=== PATIENT | male | born 1930 | race Caucasian/White ===

== ENCOUNTER 2018-06-10 18:04 | Inpatient (IN) | payer MEDICARE, OTHER ==
[~2018-06-10] VITALS: Ht 180.3 cm; Wt 93.5 kg
--- NOTE | ~2018-06-10 | CN ---
PATIENT NAME:TRIP HERNANDEZ MEDICAL RECORD: [id number] : 32 LOCATION:D. D.2116 ADMIT DATE: 06/10/18 ACCOUNT: [id number] CONSULTING PHYSICIAN: BERENICE ORTIZ MD REFERRING PHYSICIAN: CAIO MANNING MD DATE OF CONSULTATION: 06/11/2018 HISTORY OF PRESENT ILLNESS: An 87-year-old gentleman with a history of coronary artery disease, status post aortic valve replacement with a tissue prosthesis well as single-vessel coronary bypass grafting, admitted with chest pain, dyspnea, has noticed decreased effort tolerance over the past week or so. He reports chest tightness and pressure after rest symptomology. He is admitted for further evaluation. PAST MEDICAL HISTORY: Includes, 1. History of coronary artery disease as described above. 2. Dyslipidemia. 3. Valvular disease. 4. Gastroesophageal reflux disease. ALLERGIES: QUININE. MEDICATIONS: Atorvastatin 40 every day, potassium supplementation, Protonix 40 every day, aspirin 81 every day. SOCIAL HISTORY: Lives in [facility], nonsmoker, and nondrinker. He is able to care of his ADLs. Good family support. REVIEW OF SYSTEMS: The patient reports easy bruising but reports no swollen glands. The patient reports no fever, no night sweats, no significant weight gain, no significant weight loss. No significant exercise tolerance. The patient reports no dry eyes, no irritation, no vision change. Patient reports no difficulty hearing and no ear pain. Patient reports no frequent nose bleeds or nose and sinus problems. Patient reports on arm pain on exertion. No shortness of breath while lying down. No history of heart murmur. Patient reports no cough, no wheezing or coughing up blood. Patient reports no abdominal pain, no vomiting. Normal appetite. No diarrhea and not vomiting blood. No nausea and no constipation. Patient reports no incontinence. No difficulty urinating. No hematuria. No increased frequency. Patient reports no muscle aches. No weakness, no arthralgias, no back pain. No swelling of the extremities. Patient reports no abnormal mole, no jaundice, no rashes. Reports no loss of consciousness. No weakness and no numbness. No seizures, dizziness, or headaches. The patient reports no depression, no sleep disturbance, feeling safe in a relationship and no alcohol abuse. Patient reports on fatigue. Reports no runny nose or sinus pressure. No itching, no hives, and no frequent sneezing. PHYSICAL EXAMINATION: GENERAL: Pleasant gentleman in no acute distress. VITAL SIGNS: 104/45, pulse 81 and regular. HEENT: Normocephalic, atraumatic. NECK: No bruits noted. HEART: Regular, II/ systolic ejection murmur. LUNGS: Good air excursion. ABDOMEN: Soft, nontender. CONSULT REPORT [id number] DAVID,TRIP L EXTREMITIES: Pulses 2+, no edema. LABORATORY DATA: Enzymes are borderline, difficult to interpret in the phase of creatinine of 1.7. IMPRESSION: Accelerated angina, acute coronary syndrome. PLAN: For angiography, intervention based on above. 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
--- NOTE | ~2018-06-10 | HEMODYNAMI ---
PATIENT:TRIP HERNANDEZ MEDICAL RECORD: [id number] : 32 [facility] ADMISSION DATE: 06/10/18 Generatedon:06/11/201812:21 Patient name: TRIP HERNANDEZ Patient #: [id number] SSN: DO B: 1930 Date of study: 06/11/2018 Page: Of Hemodynamic Procedure Report Patient Data Patient Demographics Procedure consent was obtained First Name: TRIP Gender: Male Last Name: DAVID : 1930 Middle Initial: L Age: 87 year(s) Patient #: [id number] Race: Unknown Additional ID: [id number] Contact details [address]: [address] [place] [address] rd State: [place] City: [place] Zip code: [address] Past Medical History Allergies Allergen Reaction Date Comments Reported Other allergy 06/11/2018 quinine Admission Admission Data Admission Date: 06/10/2018 Admission Time: 18:04 Room #: [facility] Procedure Procedure Types Cath Procedure Diagnostic Procedure LHC LHC w/Coronaries w/Grafts PCI Procedure Coronary Stent Coronary Stent Initial Procedure Description Procedure Date Procedure Date: 06/11/2018 Procedure Start Time: 11:22 Procedure End Time: 12:19 Procedure Staff Name Function Eduardo Saravia MD Performing Physician Abhijeet Mcintyre RT Monitor Brannon Lai RT Scrub Harvey Nava RN Nurse Procedure Data Cath Procedure Fluoroscopy Diagnostic fluoroscopy Total fluoroscopy Time: time: 13.4 min 13.4 min Diagnostic fluoroscopy Total fluoroscopy dose: dose: 2409 mGy 2409 mGy Contrast Material Contrast Material Type Amount (ml) Isovue 300 120 Entry Location Entry Primary Successful Side Size Upsize Upsize Entry Closure Succes sful Closure Location (Fr) 1 (Fr) 2 (Fr) Remarks Device Remarks Femoral Right 5 Fr 6 Fr 6 Fr Exoseal artery Long Short Estimated blood loss: 10 ml Diagnostic catheters Device Type Used For End Catheter Placement MULTIPACK JL 4.0 5Fr Procedure catheter MULTIPACK JL 4.0 5Fr Procedure catheter DIAGNOSTIC JL 5 5Fr Procedure catheter ([id number]) MULTIPACK 3DRC 5Fr Procedure catheter DIAGNOSTIC MPA-2 5Fr Procedure catheter ([id number]) DIAGNOSTIC AL 1 5Fr Procedure catheter ([id number]) MULTIPACK Pigtail 5 Fr Procedure catheter Procedure Complications No complications Procedure Medications Medication Administration Route Dosage Oxygen etCO2 Nasal cannula 2 l/min Heparin Flush Bag added to field 2 bags (1000units/500ml NS) 0.9% NaCl I.V. 100 ml/hr Fentanyl I.V. 50 mcg Versed I.V. 1 mg Heparin Bolus I.V. 7000 units Integrilin (Bolus I.V. 6.8 ml 2mg/ml) Integrilin (Bolus wasted 3.2 ml 2mg/ml) Lasix I.V. 20 mg Plavix P.O. 600 mg Hemodynamics Rest Heart Rate: 90 (bpm) Pressure Samples Time Site Value (mmHg) Purpose Heart Use Rate(bpm) 11:29 AO 105/37(65) Snapshot 86 11:51 LV 134/-13,11 EDP 94 11:51 LV 128/-16,10 Snapshot 94 11:52 LV 149/-6,19 EDP 85 11:52 LV 138/29,31 Snapshot 93 Gradients Valve Time Site Site Mean SEP/DFP Peak To Heart Use 1 2 (mmHg) (sec/min) Peak Rate (mmHg) (bpm) Aortic 11:52 LV AO 100 Snapshots Pre Cath Intra NCS Post Cath Vital Signs Time Heart Resp SPO2 etCO2 NIBP (mmHg) Rhythm Pain Sedation Rate (ipm) (%) (mmHg) Status Level (bpm) 11:08:14 115 17 97 0 129/65(98) NSR 0 (11) 10(A) , No pain 11:12:15 89 16 92 21 117/58(97) NSR 0 (11) 10(A) , No pain 11:16:13 85 16 86 18 126/65(92) NSR 0 (11) 10(A) , No pain 11:20:23 94 16 92 23.3 107/50(86) NSR 0 (11) 9(A) , No pain 11:24:24 80 16 91 18.8 116/60(80) NSR 0 (11) 9(A) , No pain 11:28:24 95 16 93 14.2 109/62(85) NSR 0 (11) 9(A) , No pain 11:32:32 91 17 93 19.5 106/49(86) NSR 0 (11) 9(A) , No pain 11:36:34 87 17 90 21 114/55(88) NSR 0 (11) 9(A) , No pain 11:40:39 90 16 92 20.3 105/53(80) NSR 0 (11) 9(A) , No pain 11:44:39 93 17 91 25.5 99/56(79) NSR 0 (11) 9(A) , No pain 11:48:37 91 16 95 17.2 105/56(83) NSR 0 (11) 9(A) , No pain 11:53:05 94 16 93 11.2 119/59(82) NSR 0 (11) 9(A) , No pain 11:57:31 103 16 95 0 107/59(82) NSR 0 (11) 9(A) , No pain 12:01:58 96 18 92 0 135/63(98) NSR 0 (11) 9(A) , No pain 12:05:55 101 17 95 0 131/65(90) NSR 0 (11) 9(A) , No pain 12:10:13 100 16 93 0 141/69(106) NSR 0 (11) 10(A) , No pain 12:14:09 101 22 96 0 139/68(107) NSR 0 (11) 10(A) , No pain Medications Time Medication Route Dose Verified Delivered Reason Notes Effectiveness by by 11:09:23 Oxygen etCO2 2 Eduardo Harvey Per physician Nasal l/min Rani Nava RN cannula 11:09:32 Heparin Flush added 2 Eduardo Harvey used for Bag to bags Rani Nava RN procedure (1000units/500ml field CARIAS NS) 11:09:41 0.9% NaCl I.V. 100 Eduardo Harvey Per physician ml/hr Rani Nava RN, MD 11:17:20 Fentanyl I.V. 50 Eduardo Harvey for sedation mcg Rani Nava RN, MD 11:17:27 Versed I.V. 1 mg Eduardo Harvey for sedation Rani Nava RN, MD 11:57:53 Heparin Bolus I.V. 7000 Eduardo Harvey for units Rani Nava RN anticoagulation MD 12:00:49 Integrilin I.V. 6.8 Eduardo Harvey for (Bolus 2mg/ml) ml Rani Nava RN antiplatelet MD therapy 12:00:55 Integrilin wasted 3.2 Eduardo Harvey for (Bolus 2mg/ml) ml Rani Nava RN antiplatelet MD therapy 12:10:20 Lasix I.V. 20 mg Eduardo Gabriel Per physician Rani Nava RN, MD 12:10:32 Plavix P.O. 600 Eduardoyessy Gabriel for mg Rani Nava RN antiplatelet MD therapy Procedure Log Time Note 10:02:22 Time tracking: Regular hours (M-F 7:00 - 5:00) 10:02:26 Plan of Care:Hemodynamics will remain stable., Cardiac rhythm will remain stable., Comfort level will be maintained., Respiratory function will remain adequate., Patient/ family verbilizes understanding of procedure., Procedure tolerated without complication., Recovers from procedure without complications.. 10:45:10 Abhijeet Mcintyre RT(R) sent for patient. Start room use. 10:53:45 H&P Date Dictated: 06/10/2018 Within 30 days and on chart.. 10:54:29 Patient allergic to Other allergyquinine 10:59:23 Patient received from Med II to CCL 2 Alert and oriented. Tansferred to table in Supine position. 10:59:25 Warm blankets applied, and danii hugger turned on for patient comfort. 10:59:25 Correct patient and procedure confirmed by team. 10:59:27 Signed procedure consent form obtained from patient. 10:59:28 ECG and BP/O2 sat monitors applied to patient. 10:59:28 Pre-procedure instructions explained to patient. 10:59:29 Pre-op teaching completed and patient verbalized understanding. 10:59:31 Family in patients room. 10:59:34 Patient NPO since Midnight. 10:59:38 Is the patient allergic to Iodine/contrast media? No. 11:07:22 Vital chart was started 11:09:23 Oxygen 2 l/min etCO2 Nasal cannula was administered by Harvey Nava RN; Per physician; 11:09:32 Heparin Flush Bag (1000units/500ml NS) 2 bags added to field was administered by Harvey Nava RN; used for procedure; 11:09:41 0.9% NaCl 100 ml/hr I.V. was administered by Harvey Nava RN; Per physician; 11:11:20 Baseline sample Acquired. 11:11:23 Rhythm: sinus rhythm 11:11:24 Full Disclosure recording started 11:11:27 Is patient on blood thinner?No 11:11:28 Patient diabetic? No. 11:11:31 Previous problem with sedation/anesthesia? No ? 11:12:13 Snore? Yes 11:12:14 Sleep apnea? No 11:12:15 Deviated septum? No 11:12:15 Opens mouth fully? Yes 11:12:16 Sticks out tongue? Yes 11:12:19 Airway obstruction? Yes COPD 11:12:23 Dentures? No ? 11:12:25 Pre procedure: right dorsailis pedis pulse 1+ Palpable, but thready & weak; easily obliterated 11:12:28 Patient pain scale 0/10 ?. 11:12:34 IV patent on arrival in right wrist with 0.9% NaCl at [facility]. 11:12:36 Lab results completed and on chart. 11:12:43 Right groin area was prepped with chlora-prep and draped in sterile fashion 11:12:44 Alarms reviewed by R. N. 11:12:44 Sharps counted by scrub and verified by R.N. 11:12:48 Use device set Femoral Dx 11:12:51 Tegaderm 4 x 4 (1626W) opened to sterile field. 11:12:51 PERCUTANEOUS ENTRY 19GA needle opened to sterile field. 11:12:53 ACIST Hand Control (18471) opened to sterile field. 11:12:53 ACIST Manifold (50886) opened to sterile field. 11:12:55 ACIST Syringe (55516) opened to sterile field. 11:12:55 Bag Decanter () opened to sterile field. 11:12:56 Medline Cath Pack ([id number]) opened to sterile field. 11:12:56 DIAGNOSTIC WIRE .035 260cm J wire (546084) opened to sterile field. 11:12:57 DIAGNOSTIC Multipack 5Fr catheter set (RU6450) opened to sterile field. 11:12:58 SHEATH Prelude 5Fr 0.035 (JLU-4Q-11-035) opened to sterile field. 11:14:05 MICROPUNCTURE 4FR Xplornet ([id number]) opened to sterile field. 11:16:53 --------ALL STOP TIME OUT------ 11:16:54 Final Timeout: patient, procedure, and site verified with staff and physician. All members of the team are in agreement. 11:16:58 Right groin site verified by team. 11:17:01 Physical assessment completed. ASA score P 2 - A patient with mild systemic disease as per Eduardo Saravia MD. 11:17:04 Sedation plan: IV Moderate Sedation Medication:Versed, Fentanyl 11:17:20 Fentanyl 50 mcg I.V. was administered by Harvey Nava RN; for sedation; 11:17:27 Versed 1 mg I.V. was administered by Harvey Nava RN; for sedation; 11:22:31 Zero performed for pressure channel P1 11:22:34 Zero performed for pressure channel P1 11:22:44 Procedure started. 11::53 Local anesthetic to right femoral artery with Lidocaine 2% by Eduardo Saravia MD.INITIAL ACCESS ONLY 11:23:29 Access obtained with 4Fr micropunture. 11:23:53 A 5 Fr sheath was inserted into the Right Femoral artery 11:24:53 A MULTIPACK JL 4.0 5Fr catheter was advanced over the wire and used for Procedure. 11:26:32 Unable to advance catheter due to tortuosity of the right iliac. Wire advanced. Catheter removed over the wire. 11:26:39 SHEATH 6FR ARROW 45cm (CL-[id number]) opened to sterile field. 11:27:08 Sheath upsized to a 6 Fr Long. 11:28:22 A MULTIPACK JL 4.0 5Fr catheter was advanced over the wire and used for Procedure. 11:29:06 SHEATH 6Fr Prelude ([id number]) opened to sterile field. 11:29:56 Catheter exchanged over wire. 11:30:08 A DIAGNOSTIC JL 5 5Fr catheter ([id number]) was advanced over the wire and used for Procedure. 11:32:02 LCA angiography performed. 11:34:55 Catheter exchanged over wire. 11:35:14 A MULTIPACK 3DRC 5Fr catheter was advanced over the wire and used for Procedure. 11:36:26 RCA angiography performed. 11:37:48 SVG to RCA angiography performed. 11:38:09 Catheter exchanged over wire. 11:39:18 A DIAGNOSTIC MPA-2 5Fr catheter ([id number]) was advanced over the wire and used for Procedure. 11:41:20 SVG to RCA angiography performed. 11:43:12 ROADRUNNER .035 260 glide wire (Z60624) opened to sterile field. 11:43:54 Roadrunner wire advanced in attempt to cross the aortic valve. 11:45:42 Catheter exchanged over wire. 11:46:01 A DIAGNOSTIC AL 1 5Fr catheter ([id number]) was advanced over the wire and used for Procedure. 11:51:13 Catheter advanced into left ventricle. Wire removed. J wire advanced. 11:51:26 Catheter exchanged over wire. 11:51:31 A MULTIPACK Pigtail 5 Fr catheter was advanced over the wire and used for Procedure. 11:52:19 Zero performed for pressure channel P1 11:53:25 LV angiography performed. 11:53:29 LV gram done using SOMERS 11:53:49 EF : 60 % 11:53:51 LV hemodynamics recorded. 11:53:54 Injector settings: Ml/sec: 12, Volume: 8, 11:54:40 Catheter exchanged over wire. 11:54:47 Use device set NORRED PCI 11:56:22 INFLATOR Merit BasixCompak (IP9438) opened to sterile field. 11:56:23 COPILOT Valve Control (9181074) opened to sterile field. 11:56:26 BMW 190cm Wallagrass 2 J wire ([id number]) opened to sterile field. 11:56:47 GUIDE 6FR EBU 4.5 SH catheter ([id number]) opened to sterile field. 11:57:12 6 Fr EBU 4.5 SH guide catheter was inserted over the wire 11:57:53 Heparin Bolus 7000 units I.V. was administered by Harvey Nava RN; for anticoagulation; 11:58:25 BMW wire advanced. 11:59:10 Wire advanced across lesion. 12:00:49 Integrilin (Bolus 2mg/ml) 6.8 ml I.V. was administered by Harvey Nava RN; for antiplatelet therapy; 12:00:55 Integrilin (Bolus 2mg/ml) 3.2 ml wasted was administered by Harvey Nava RN; for antiplatelet therapy; 12:03:09 Place stent Inflation Number: 1 A CECE RX 2.25 x 15 stent ([id number]) was prepped and advanced across the Prox CX. The stent was deployed at 14 JUSTIN for 0:10 (min:sec). 12:03:21 Stent catheter was removed intact over wire. 12:05:55 Inflate balloon Inflation number: 2 A EUPHORA 2.5 x 12 Balloon ([id number]) was prepped and advanced across the Prox CX, then inflated to 14 JUSTIN for 0:10 (min:sec). 12:06:37 EXOSEAL 6Fr (EX600) opened to sterile field. 12:06:48 Stent catheter was removed intact over wire. 12:06:48 Wire removed. 12:06:49 Guide catheter removed. 12:08:07 Sheath upsized to a 6 Fr Short. 12:08:25 Sheath removed intact; hemostasis achieved with Exoseal to the Right Femoral artery. 12:08:27 Procedure ended.(Physican Out) 12:09:38 Fluoroscopy time 13.40 minutes. 12:09:42 Fluoroscopy dose: 2409 mGy 12:09:42 Flurop Dose total: 2409 12:09:45 Contrast amount:Isovue 300 120ml. 12:09:47 Sharps counted by scrub and verified by R.N. 12:09:50 Insertion/operative site no bleeding no hematoma. 12:09:52 Post-op/insertion site Right Femoral artery dressed using a 4 x 4 and Tegaderm. 12:09:53 Post Procedure Pulses reassessed and unchanged 12:09:55 Post-procedure physical assessment completed. ASA score P 2 - A patient with mild systemic disease as per Eduardo Saravia MD. 12:09:57 Post procedure rhythm: unchanged. 12:10:00 Estimated blood loss: 10 ml 12:10:01 Post procedure instruction explained to patient.Patient verbalizes understanding. 12:10:02 Patient needs reinforcement of post procedure teaching. 12:10:20 Lasix 20 mg I.V. was administered by Harvey Nava RN; Per physician; 12:10:21 Procedure type changed to Cath procedure, Diagnostic procedure, LHC, LHC w/Coronaries w/Grafts, PCI procedure, Coronary Stent, Coronary Stent Initial 12:10:32 Plavix 600 mg P.O. was administered by Harvey Nava RN; for antiplatelet therapy; 12:11:00 Procedure and supply charges have been captured, reviewed, submitted and are correct. 12:11:03 Procedure Complication : No complications 12:16:58 See physician's report for complete and final results. 12:16:58 Vital chart was stopped 12:18:29 Report given to PCU. 12:19:05 Patient transfered to PCU with Bed. 12:19:07 Procedure ended. 12:19:07 Full Disclosure recording stopped 12:19:57 End room use (Document Last) Intervention Summary Intervention Notes Time ActionType Lesion and Equipment Used Action# Pressure Duration Attributes 12:03:09 Place stent Prox CX CECE RX 2.25 x 1 14 00:10 15 stent ([id number]) 12:05:55 Inflate Prox CX EUPHORA 2.5 x 2 14 00:10 balloon 12 Balloon ([id number]) Device Usage Item Name Manufacture Quantity Catalog Number Hospital Part Current Minimal Lot# / Charge Number Stock Stock Serial# Code Tegaderm 4 x 4 3M 1 1626W [id number] 227519 374118 5 (1626W) PERCUTANEOUS Xplornet Medical 1 [id number] 893703 585459 5 ENTRY 19GA needle ACIST Hand Acist 1 47017 168452 993977 505655 5 Control (11221) Medical Systems Inc ACIST Manifold Acist 1 72498 058475 131139 833791 5 (01110) Medical Systems Inc ACIST Syringe Acist 1 16571 665281 703898 593254 20 (38936) Medical Systems Inc Bag Decanter Microtek 1 2001S 798011 14723 884944 5 (2001S) Medical Inc. Medline Cath Cardinal 1 [id number] 721443 18863 274106 5 Pack Health ([id number]) DIAGNOSTIC WIRE St Tyrese 1 305198 865515 404710 928766 30 .035 260cm J wire (670713) DIAGNOSTIC Cardinal 1 RQ5722 587106 78915 137114 30 Multipack 5Fr Health catheter set (QA9444) SHEATH Prelude Merit 1 SKK-3A-84-035 609205 261329 635613 5 5Fr 0.035 Medical (GMD-1X-49-035) MICROPUNCTURE Cook Medical 1 M59175 260497 529812 972223 5 4FR Cook (X83882) MULTIPACK JL Cardinal 1 855279 5 4.0 5Fr Health catheter SHEATH 6FR Teleflex 1 CL-13824 743227 488205 055403 5 ARROW 45cm (CL-99139) SHEATH 6Fr Merit 1 [id number] 288320 280879 258440 5 Prelude Medical ([id number]) DIAGNOSTIC JL 5 Cardinal 1 319004O 665588 444958 124162 5 5Fr catheter Health (786267Z) MULTIPACK 3DRC Cardinal 1 343015 5 5Fr catheter Health DIAGNOSTIC Cardinal 1 194500G 572245 240545 281598 5 MPA-2 5Fr Health catheter (508192T) ROADRUNNER .035 Cook Medical 1 I24544 036955 783064 815455 5 260 glide wire (V28709) DIAGNOSTIC AL 1 Cardinal 1 906075G 646018 672297 987834 15 5Fr catheter Health (108790A) MULTIPACK Cardinal 1 186175 5 Pigtail 5 Fr Health catheter INFLATOR Merit Merit 1 VM1101 444054 151157 337105 15 BasixComtnGrabTaxi Medical (SE1601) COPILOT Valve Rios 1 5282738 759207 149122 642382 5 Control Vascular (8582838) BMW 190cm Rios 1 [id number] 274376 96647 809211 5 Wallagrass 2 J Vascular wire (6738576J) GUIDE 6FR EBU Medtronic 1 [id number] 471497 86772 902083 0 4.5 SH catheter ([id number]) CECE RX 2.25 x Medtronic 1 [id number] 473602 5741566 944278 5 [id number] 15 stent ([id number]) EUPHORA 2.5 x Medtronic 1 [id number] 802642 778661 467871 5 [id number] 12 Balloon ([id number]) EXOSEAL 6Fr Cardinal 1 EX600 081834 926487 710561 10 (EX600) Health Signature Audit [place] Stage Time Signature Unsigned Intra-Procedure 06/11/2018 Abhijeet Mcintyre 12:21:02 PM RT(R) Signatures Monitor : Abhijeet Mcintyre RT Signature : Date : Time : [place] [address] [place] [address]
[~2018-06-10 18:04] MED LIST: ASPIRIN 81 MG E81 MG PO; CITRACAL + D CA1 TAB PO; LIPITOR80 MG PO; POTASSIUM99 M1 PO; PROTONIX40 MG PO; VITAMIN B-12500 MCG PO
[2018-06-10 21:05] LABS: BASOPHILS 0.4 % (0-2); EOSINOPHILS 2.6 % (0-7); HEMATOCRIT 35.9 % (42.0-54.0); HEMOGLOBIN 11.9 g/dL (13.5-17.5); IMMATURE GRANULOCYTES 0.1 % (0-5); MCH 29.9 pg (26.0-34.0); MCHC 33.1 g/dL (31.0-37.0); MCV 90.2 fL (80.0-100.0); MEAN PLATELET VOLUME 10.8 fL (7.4-10.4); MONOCYTES 10.8 % (2-11); NEUTROPHILS 57.1 % (40-80); PLATELET COUNT 123 10x3/uL (130-400); RBC 3.98 10x6/uL (4.20-6.10); WBC 7.2 10x3/uL (4.8-10.8)
[2018-06-10 21:09] VITALS: BP 128/41
[2018-06-10 21:25] LABS: ALBUMIN 3.8 g/dL (3.4-5.0); BILIRUBIN - TOTAL 0.28 mg/dL (0.2-1.3); CALCIUM 8.4 mg/dL (8.5-10.1); CARBON DIOXIDE 21.2 mmol/L (21.0-32.0); CREATININE - SERUM 1.7 mg/dL (0.6-1.3); POTASSIUM - SERUM 4.2 mmol/L (3.5-5.1); PROTEIN - SERUM 7.4 g/dL (6.4-8.2)
[2018-06-10 21:53] LABS: CKMB 1.2 U/L (0.0-3.6); CREATINE KINASE 113 UL (21-232)
[2018-06-10 21:54] LABS: TROPONIN-I 0.073 ng/mL (0.000-0.060)
[2018-06-11] VITALS (7 sets, daily range): BP systolic 104–128; BP diastolic 41–60; Ht 180.3 cm; Wt 93.5 kg
[2018-06-11 02:07] LABS: CKMB 1.2 U/L (0.0-3.6); CREATINE KINASE 86 UL (21-232)
[2018-06-11 02:56] LABS: APPEARANCE CLEAR (CLEAR); BILIRUBIN NEGATIVE (NEGATIVE); COLOR YELLOW (YELLOW); GLUCOSE NEGATIVE (NEGATIVE); KETONE NEGATIVE (NEGATIVE); NITRITE NEGATIVE (NEGATIVE); PH 6.5 (5.0-6.0); PROTEIN NEGATIVE (NEGATIVE); UROBILINOGEN NORMAL (NORMAL)
[2018-06-11 08:32] LABS: BASOPHILS 0.1 % (0-2); EOSINOPHILS 1.4 % (0-7); HEMATOCRIT 36.5 % (42.0-54.0); HEMOGLOBIN 12.1 g/dL (13.5-17.5); IMMATURE GRANULOCYTES 0.1 % (0-5); LYMPHOCYTES 27.1 % (15-50); MCH 29.8 pg (26.0-34.0); MCHC 33.2 g/dL (31.0-37.0); MCV 89.9 fL (80.0-100.0); MEAN PLATELET VOLUME 11.2 fL (7.4-10.4); MONOCYTES 6.8 % (2-11); NEUTROPHILS 64.5 % (40-80); PLATELET COUNT 123 10x3/uL (130-400); RBC 4.06 10x6/uL (4.20-6.10); RDW 13.9 % (11.5-14.5); WBC 7.6 10x3/uL (4.8-10.8)
[2018-06-11 08:38] LABS: CALCIUM 8.3 mg/dL (8.5-10.1); CARBON DIOXIDE 22.8 mmol/L (21.0-32.0); CREATININE - SERUM 1.6 mg/dL (0.6-1.3); POTASSIUM - SERUM 3.8 mmol/L (3.5-5.1)
[2018-06-12 01:32] VITALS: BP 112/46
[2018-06-12 06:11] VITALS: BP 97/44
[2018-06-12 09:07] VITALS: BP 111/58
[2018-06-12] MEDS ORDERED: PLAVIX75 MG PO (12:25)
[2018-06-12] MEDS ORDERED: FLOMAX0.4 MG PO (12:28)
[2018-06-12 12:29] VITALS: BP 125/41
== END 2018-06-12 15:15 | disposition home or self-care (01) | DRG 246 ==
LOC: D.SDCHOLD 18:04 → D.M2 18:04
PROVIDERS: Family Medicine; Internal Medicine Interventional Cardiology
PROC: B2121ZZ Fluoroscopy of Single Coronary Artery Bypass Graft using Low Osmolar Contrast (ICD-10-PCS; 2018-06-11)
PROC: B2111ZZ Fluoroscopy of Multiple Coronary Arteries using Low Osmolar Contrast (ICD-10-PCS; 2018-06-11)
PROC: B2151ZZ Fluoroscopy of Left Heart using Low Osmolar Contrast (ICD-10-PCS; 2018-06-11)
PROC: 027034Z Dilation of Coronary Artery, One Artery with Drug-eluting Intraluminal Device, Percutaneous Approach (ICD-10-PCS; principal; 2018-06-11 10:00)
PROC: 4A023N7 Measurement of Cardiac Sampling and Pressure, Left Heart, Percutaneous Approach (ICD-10-PCS; 2018-06-11 10:00)
DX: I25.110 Atherosclerotic heart disease of native coronary artery with unstable angina pectoris (principal); I50.31 Acute diastolic (congestive) heart failure; E78.5 Hyperlipidemia, unspecified; K21.9 Gastro-esophageal reflux disease without esophagitis; Z95.2 Presence of prosthetic heart valve; Z95.1 Presence of aortocoronary bypass graft

== ENCOUNTER 2018-06-18 18:58 | Emergency (ER) | payer MEDICARE, OTHER ==
[~2018-06-18] VITALS: Ht 180.3 cm; Wt 77.7 kg
[~2018-06-18 18:58] MED LIST changes: +FLOMAX0.4 MG PO; +PLAVIX75 MG PO
[2018-06-18 19:04] VITALS: Ht 180.3 cm; Wt 77.7 kg
[2018-06-18] MEDS ORDERED: NAMENDA10 MG PO (19:06)
[2018-06-18] MEDS ORDERED: REGLAN10 MG PO (19:07)
[2018-06-18] MEDS ORDERED: FUROSEMIDE20 MG PO ×2 (19:08→20:51)
[2018-06-18 20:02] LABS: BASOPHILS 0.2 % (0-2); EOSINOPHILS 1.8 % (0-7); HEMATOCRIT 34.3 % (42.0-54.0); HEMOGLOBIN 11.6 g/dL (13.5-17.5); IMMATURE GRANULOCYTES 0.3 % (0-5); LYMPHOCYTES 21.8 % (15-50); MCH 29.5 pg (26.0-34.0); MCHC 33.8 g/dL (31.0-37.0); MCV 87.3 fL (80.0-100.0); MEAN PLATELET VOLUME 10.8 fL (7.4-10.4); MONOCYTES 11.3 % (2-11); NEUTROPHILS 64.6 % (40-80); PLATELET COUNT 135 10x3/uL (130-400); RBC 3.93 10x6/uL (4.20-6.10); RDW 13.7 % (11.5-14.5); WBC 6.2 10x3/uL (4.8-10.8)
[2018-06-18 20:34] LABS: ALBUMIN 3.8 g/dL (3.4-5.0); ANION GAP 16.8 mmol/L (8-16); BILIRUBIN - TOTAL 0.35 mg/dL (0.2-1.3); CALCIUM 8.6 mg/dL (8.5-10.1); CARBON DIOXIDE 22.6 mmol/L (21.0-32.0); POTASSIUM - SERUM 4.4 mmol/L (3.5-5.1); PROTEIN - SERUM 7.5 g/dL (6.4-8.2)
[2018-06-18 21:05] LABS: APPEARANCE CLEAR (CLEAR); BILIRUBIN NEGATIVE (NEGATIVE); COLOR YELLOW (YELLOW); GLUCOSE NEGATIVE (NEGATIVE); KETONE NEGATIVE (NEGATIVE); NITRITE NEGATIVE (NEGATIVE); PROTEIN NEGATIVE (NEGATIVE); UROBILINOGEN NORMAL (NORMAL)
[2018-06-18] MEDS ORDERED: PLAVIX75 MG PO (21:36)
[2018-06-18 22:08] VITALS: BP 117/89
== END 2018-06-18 22:08 | disposition home or self-care (01) ==
LOC: D.ER 18:58
PROVIDERS: Family Medicine
DX: I50.9 Heart failure, unspecified (principal)

== ENCOUNTER 2018-07-02 10:41 | Inpatient (IN) | payer MEDICARE, OTHER ==
[2018-07-02] VITALS (10 sets, daily range): BP systolic 98–123; BP diastolic 37–64; BMI 23.7
[~2018-07-02] VITALS: Ht 180.3 cm; Wt 77.3 kg
--- NOTE | ~2018-07-02 | MORECARE ---
CASE MANAGEMENT DISCHARGE SUMMARY PATIENT: TRIP HERNANDEZ UNIT: [id number] ADM DATE: 07/02/18 AGE: 87 : 31 SEX: M ROOM/BED: D.2115 AUTHOR: CASE, ACCESS ASSOC PHYSICIAN: REFERRING PHYSICIAN: HILLARY DUNNE MD DATE OF SERVICE: 07/02/18 Discharge Plan Patient Name: TRIP HERNANDEZ Facility: [facility]:[place] : 1930 Planned Disposition: Home Anticipated Discharge Date: 07/04/18 Discharge Date: Expected LOS: 2 Initial Reviewer: [email or web address] Initial Review Date: 07/02/2018 Generated: 07/02/18 4:33 pm Patient Name: TRIP HERNANDEZ Page 40000 All edits/amendments must be made on the electronic document DICTATION DATE: 07/02/18 153 CHILD CARE ASSOCIATE TEACHER: 07/02/18 153 RPT#: [id number] [place] DATE: STATUS: ADM IN [facility] [address] [place] [address] END OF REPORT
--- NOTE | ~2018-07-02 | CN ---
PATIENT NAME:TRIP HERNANDEZ MEDICAL RECORD: [id number] : 32 LOCATION:[facility] D.2115 ADMIT DATE: 07/02/18 ACCOUNT: [id number] CONSULTING PHYSICIAN: BERENICE ORTIZ MD REFERRING PHYSICIAN: HILLARY DUNNE MD DATE OF CONSULTATION: 07/03/2018 HISTORY OF PRESENT ILLNESS: An 87-year-old gentleman with a history of coronary artery disease, status post recent intervention with medicated stent, has a history of bypass grafting in the past, has a history of sick sinus syndrome, status post pacemaker, abrupt onset of tachycardia, shortness of breath, found to be in atrial fibrillation with RVR. Pacemaker interrogation shows underlying chronic atrial fibrillation, rare tachycardic episodes. We are asked to see him concerning his cardiovascular status. Of note, the patient had no angina, just some mild dyspnea with this current episode. PAST MEDICAL HISTORY: Includes: 1. History of coronary artery disease as described above. 2. Hypertension. 3. Cardiomyopathy. ALLERGIES: QUININE. MEDICATIONS: Typically include valsartan , Plavix 75 every day, aspirin 81 mg p.o. every day, Namenda 10 every day, Lasix 20 every day, Protonix 40 every day. SOCIAL HISTORY: . Nonsmoker and nondrinker. Easily takes care of all his ADLs, does try to walk on a regular basis. REVIEW OF SYSTEMS: The patient reports easy bruising but reports no swollen glands. The patient reports no fever, no night sweats, no significant weight gain, no significant weight loss. No significant exercise tolerance. The patient reports no dry eyes, no irritation, no vision change. Patient reports no difficulty hearing and no ear pain. Patient reports no frequent nose bleeds or nose and sinus problems. Patient reports on arm pain on exertion. No shortness of breath while lying down. No history of heart murmur. Patient reports no cough, no wheezing or coughing up blood. Patient reports no abdominal pain, no vomiting. Normal appetite. No diarrhea and not vomiting blood. No nausea and no constipation. Patient reports no incontinence. No difficulty urinating. No hematuria. No increased frequency. Patient reports no muscle aches. No weakness, no arthralgias, no back pain. No swelling of the extremities. Patient reports no abnormal mole, no jaundice, no rashes. Reports no loss of consciousness. No weakness and no numbness. No seizures, dizziness, or headaches. The patient reports no depression, no sleep disturbance, feeling safe in a relationship and no alcohol abuse. Patient reports on fatigue. Reports no runny nose or sinus pressure. No itching, no hives, and no frequent sneezing. PHYSICAL EXAMINATION: GENERAL: Pleasant gentleman in no acute distress. VITAL SIGNS: Pulse 78, blood pressure 116/50. HEENT: Normocephalic, atraumatic. NECK: No bruits noted. HEART: Irregular, rate is controlled. CONSULT REPORT [id number] DAVIDTRIP L LUNGS: Good air excursion. ABDOMEN: Soft, nontender. EXTREMITIES: Pulses 2+. There is no edema. ECG: ECG confirms atrial fibrillation. IMPRESSION: Afib with RVR, responding nicely to IV diltiazem. We will switch to oral. Given age would not use 3-agent anticoagulation, would prefer to hold NOAC since he does have a recent medicated stent. No contraindication to discharge from cardiovascular standpoint after we assure he is tolerating rates with p.o. diltiazem only. TRANSINT:[id number] Voice Confirmation ID: [id number] DOCUMENT ID: [id number] BERENICE ORTIZ MD at 1116 CC: [id number] DICTATION DATE: 07/03/18 1014 FACTORY SUPERINTENDENT: 07/03/18 1120 [place] [address]
[~2018-07-02 10:41] MED LIST changes: +FUROSEMIDE20 MG PO; +NAMENDA10 MG PO; +REGLAN10 MG PO
[2018-07-02 11:19] LABS: BASOPHILS 0.4 % (0-2); EOSINOPHILS 2.5 % (0-7); HEMATOCRIT 33.8 % (42.0-54.0); HEMOGLOBIN 11.5 g/dL (13.5-17.5); LYMPHOCYTES 25.6 % (15-50); MCH 29.2 pg (26.0-34.0); MCV 85.8 fL (80.0-100.0); MEAN PLATELET VOLUME 10.3 fL (7.4-10.4); MONOCYTES 14.3 % (2-11); NEUTROPHILS 57.2 % (40-80); PLATELET COUNT 116 10x3/uL (130-400); RBC 3.94 10x6/uL (4.20-6.10); RDW 13.4 % (11.5-14.5); WBC 5.1 10x3/uL (4.8-10.8)
[2018-07-02 11:34] LABS: ALBUMIN 3.6 g/dL (3.4-5.0); ALKALINE PHOSPHATASE 65 U/L (46-116); ALT (SGPT) 21 U/L (10-68); BILIRUBIN - TOTAL 0.39 mg/dL (0.2-1.3); CALC OSMOLALITY 256 mosm/kg (275-300); CALCIUM 8.4 mg/dL (8.5-10.1); CHLORIDE - SERUM 94 mmol/L (98-107); GLUCOSE 100 mg/dL (74-106); POTASSIUM - SERUM 5.3 mmol/L (3.5-5.1); PROTEIN - SERUM 6.7 g/dL (6.4-8.2); SODIUM 126 mmol/L (136-145); UREA NITROGEN 23 mg/dL (7-18); eGFR NON AFRICAN AMERICAN 34 mL/min (90-120)
[2018-07-02 11:44] LABS: INR 0.98 (0.85-1.17); PROTIME 12.6 SECONDS (11.6-15.0)
[2018-07-02 11:45] LABS: APTT 34.2 SECONDS (22.8-39.4)
[2018-07-02 11:52] LABS: CKMB 2.1 U/L (0.0-3.6)
[2018-07-02 11:54] LABS: TROPONIN-I 0.105 ng/mL (0.000-0.060)
[2018-07-02 16:05] LABS: CREATINE KINASE 82 UL (21-232)
[2018-07-02] MEDS ORDERED: FUROSEMIDE20 MG PO (16:33)
[2018-07-02] MEDS ORDERED: K-TAB10 MEQ PO (19:55)
[2018-07-02] MEDS ORDERED: ENTRESTO 24 MG1 EACH PO (19:56)
[2018-07-02 20:43] LABS: CKMB 1.8 U/L (0.0-3.6); CREATINE KINASE 84 UL (21-232)
[2018-07-02 20:57] LABS: TROPONIN-I 0.085 ng/mL (0.000-0.060)
[2018-07-03] VITALS: BP 112/42
[2018-07-03 04:00] VITALS: BP 116/50
[2018-07-03 05:03] LABS: BASOPHILS 0.1 % (0-2); EOSINOPHILS 1.3 % (0-7); HEMATOCRIT 33.5 % (42.0-54.0); HEMOGLOBIN 11.5 g/dL (13.5-17.5); IMMATURE GRANULOCYTES 0.1 % (0-5); LYMPHOCYTES 14.1 % (15-50); MCH 29.5 pg (26.0-34.0); MCHC 34.3 g/dL (31.0-37.0); MCV 85.9 fL (80.0-100.0); MEAN PLATELET VOLUME 11.4 fL (7.4-10.4); MONOCYTES 8.7 % (2-11); NEUTROPHILS 75.7 % (40-80); PLATELET COUNT 121 10x3/uL (130-400); RDW 13.5 % (11.5-14.5)
[2018-07-03 05:11] LABS: WBC 7.9 10x3/uL (4.8-10.8)
[2018-07-03 05:40] LABS: ALBUMIN 3.5 g/dL (3.4-5.0); ALKALINE PHOSPHATASE 64 U/L (46-116); ALT (SGPT) 20 U/L (10-68); CALC OSMOLALITY 258 mosm/kg (275-300); CALCIUM 8.4 mg/dL (8.5-10.1); CARBON DIOXIDE 25.3 mmol/L (21.0-32.0); CHLORIDE - SERUM 94 mmol/L (98-107); CKMB 1.9 U/L (0.0-3.6); CREATINE KINASE 81 UL (21-232); CREATININE - SERUM 2.1 mg/dL (0.6-1.3); GLUCOSE 117 mg/dL (74-106); POTASSIUM - SERUM 5.5 mmol/L (3.5-5.1); PROTEIN - SERUM 6.5 g/dL (6.4-8.2); SODIUM 126 mmol/L (136-145); TROPONIN-I 0.057 ng/mL (0.000-0.060); UREA NITROGEN 26 mg/dL (7-18); eGFR NON AFRICAN AMERICAN 32 mL/min (90-120)
[2018-07-03 11:23] VITALS: BP 100/39
[2018-07-03 12:10] VITALS: Ht 180.3 cm; Wt 77.3 kg
[2018-07-03 14:56] VITALS: BP 114/42
[2018-07-03 20:57] VITALS: BP 112/39
[2018-07-04 05:53] LABS: BASOPHILS 0.5 % (0-2); EOSINOPHILS 3.1 % (0-7); HEMATOCRIT 30.3 % (42.0-54.0); HEMOGLOBIN 10.3 g/dL (13.5-17.5); LYMPHOCYTES 23.7 % (15-50); MCH 29.2 pg (26.0-34.0); MCV 85.8 fL (80.0-100.0); MEAN PLATELET VOLUME 10.9 fL (7.4-10.4); MONOCYTES 10.9 % (2-11); NEUTROPHILS 61.8 % (40-80); PLATELET COUNT 110 10x3/uL (130-400); RBC 3.53 10x6/uL (4.20-6.10); RDW 13.4 % (11.5-14.5)
[2018-07-04 05:54] LABS: WBC 5.8 10x3/uL (4.8-10.8)
[2018-07-04 06:08] LABS: CALCIUM 7.9 mg/dL (8.5-10.1); CARBON DIOXIDE 23.6 mmol/L (21.0-32.0); CREATININE - SERUM 1.7 mg/dL (0.6-1.3)
[2018-07-04 06:09] LABS: POTASSIUM - SERUM 4.6 mmol/L (3.5-5.1)
[2018-07-04 07:55] VITALS: BP 133/48
[2018-07-04 11:33] VITALS: BP 111/44
[2018-07-04 15:30] VITALS: BP 113/43
[2018-07-04 21:07] VITALS: BP 108/46
[2018-07-05 01:16] VITALS: BP 109/41
[2018-07-05 05:10] VITALS: BP 120/40
[2018-07-05 06:57] LABS: BASOPHILS 0.2 % (0-2); EOSINOPHILS 3.7 % (0-7); HEMATOCRIT 29.1 % (42.0-54.0); IMMATURE GRANULOCYTES 0.2 % (0-5); LYMPHOCYTES 18.6 % (15-50); MCH 29.1 pg (26.0-34.0); MCHC 34.4 g/dL (31.0-37.0); MCV 84.6 fL (80.0-100.0); MEAN PLATELET VOLUME 10.9 fL (7.4-10.4); MONOCYTES 10.5 % (2-11); NEUTROPHILS 66.8 % (40-80); PLATELET COUNT 114 10x3/uL (130-400); RBC 3.44 10x6/uL (4.20-6.10); RDW 13.4 % (11.5-14.5); WBC 5.6 10x3/uL (4.8-10.8)
[2018-07-05 07:16] LABS: ANION GAP 12.7 mmol/L (8-16); CALCIUM 7.8 mg/dL (8.5-10.1); CARBON DIOXIDE 21.7 mmol/L (21.0-32.0); CREATININE - SERUM 1.5 mg/dL (0.6-1.3); POTASSIUM - SERUM 4.4 mmol/L (3.5-5.1)
[2018-07-05 10:00] VITALS: BP 115/41
[2018-07-05 13:48] VITALS: BP 108/35
[2018-07-06 04:00] VITALS: BP 143/67
[2018-07-06 06:02] LABS: BASOPHILS 0.2 % (0-2); EOSINOPHILS 3.6 % (0-7); HEMATOCRIT 28.9 % (42.0-54.0); HEMOGLOBIN 9.9 g/dL (13.5-17.5); IMMATURE GRANULOCYTES 0.2 % (0-5); LYMPHOCYTES 21.3 % (15-50); MCHC 34.3 g/dL (31.0-37.0); MCV 84.8 fL (80.0-100.0); MEAN PLATELET VOLUME 10.7 fL (7.4-10.4); MONOCYTES 10.1 % (2-11); NEUTROPHILS 64.6 % (40-80); PLATELET COUNT 110 10x3/uL (130-400); RBC 3.41 10x6/uL (4.20-6.10); RDW 13.5 % (11.5-14.5); WBC 5.5 10x3/uL (4.8-10.8)
[2018-07-06 06:27] LABS: ANION GAP 16.7 mmol/L (8-16); CALCIUM 7.3 mg/dL (8.5-10.1); CARBON DIOXIDE 19.6 mmol/L (21.0-32.0); CREATININE - SERUM 1.4 mg/dL (0.6-1.3); POTASSIUM - SERUM 4.3 mmol/L (3.5-5.1)
[2018-07-06] MEDS ORDERED: CARDIZEM CD180 MG PO (11:42)
== END 2018-07-06 14:28 | disposition home or self-care (01) | DRG 309 ==
LOC: D.ER 10:41 → D.M2 15:04
PROVIDERS: Family Medicine; Internal Medicine Nephrology
DX: I48.91 Unspecified atrial fibrillation (principal); N17.9 Acute kidney failure, unspecified; E87.1 Hypo-osmolality and hyponatremia; I24.8 Other forms of acute ischemic heart disease; I42.9 Cardiomyopathy, unspecified; I25.10 Atherosclerotic heart disease of native coronary artery without angina pectoris; D64.9 Anemia, unspecified; E87.5 Hyperkalemia; Z95.5 Presence of coronary angioplasty implant and graft; Z95.1 Presence of aortocoronary bypass graft; Z95.0 Presence of cardiac pacemaker; I10 Essential (primary) hypertension; E78.5 Hyperlipidemia, unspecified

== ENCOUNTER 2018-07-06 22:50 | Inpatient (IN) | payer MEDICARE, OTHER ==
[~2018-07-06] VITALS: Ht 180.3 cm; Wt 81.4 kg
--- NOTE | ~2018-07-06 | HEMODYNAMI ---
PATIENT:TRIP HERNANDEZ MEDICAL RECORD: [id number] : 31 LOCATION:[facility] D.2118 ADMISSION DATE: 07/08/18 Generatedon:07/22/201815:00 Patient name: TRIP HERNANDEZ Patient #: [id number] SSN: DO B: 1930 Date of study: 07/22/2018 Page: Of Hemodynamic Procedure Report Patient Data Patient Demographics Procedure consent was obtained First Name: TIRP Gender: Male Last Name: DAVID : 1930 [facility] Initial: L Age: 87 year(s) Patient #: [id number] Race: Unknown Additional ID: [id number] Contact details Address: [address] [place] [address] rd State: [place] City: [place] Zip code: [address] Past Medical History Allergies Allergen Reaction Date Comments Reported Other allergy 06/11/2018 quinine Admission Admission Data Admission Date: 07/08/2018 Admission Time: 16:07 Room #: 2118 Procedure Procedure Types Cath Procedure Diagnostic Procedure SMITA Procedure Description Procedure Date Procedure Date: 07/22/2018 Procedure Start Time: 13:33 Procedure Staff Name Function Geremias Romano MD Performing Physician Harvey Nava RN Nurse Hamlet Cobb Stem Teacher Héctor Maldonado MD Additional personnel Sully Gotti RT Monitor Procedure Data Cath Procedure Fluoroscopy Diagnostic fluoroscopy Total fluoroscopy Time: 0 time: 0 min min Diagnostic fluoroscopy Total fluoroscopy dose: 0 dose: 0 mGy mGy Contrast Material Contrast Material Type Amount (ml) Isovue 300 0 Estimated blood loss: 0 ml Procedure Complications No complications Procedure Medications Medication Administration Route Dosage Oxygen etCO2 Nasal cannula 2 l/min 0.9% NaCl I.V. 100 ml/hr Refer to Anesthesia Notes for Sedation Medications Hemodynamics Rest Heart Rate: 80 (bpm) Snapshots Pre Cath Intra NCS Post Cath Vital Signs Time Heart Resp SPO2 etCO2 NIBP Rhythm Pain Sedation Rate (ipm) (%) (mmHg) (mmHg) Status Level (bpm) 13:56:41 76 16 99 23.3 102/44(81) NSR 0 (11) 10(A) , No pain 14:00:59 68 17 94 23.3 91/36(78) NSR 0 (11) 10(A) , No pain 14:05:11 75 13 93 25.5 95/43(71) NSR 0 (11) 10(A) , No pain 14:09:25 79 16 95 26.3 89/35(72) NSR 0 (11) 10(A) , No pain 14:13:39 57 14 94 12 94/41(70) NSR 0 (11) 10(A) , No pain 14:17:49 75 19 100 25.5 100/52(66) NSR 0 (11) 10(A) , No pain 14:22:07 71 15 98 24.8 94/40(69) NSR 0 (11) 10(A) , No pain 14:26:23 69 14 92 10.5 91/37(67) NSR 0 (11) 10(A) , No pain 14:30:37 75 5 12 90/41(68) NSR 0 (11) 10(A) , No pain 14:34:51 69 13 23.3 89/41(72) NSR 0 (11) 10(A) , No pain 14:39:05 69 0 93/37(67) NSR 0 (11) 10(A) , No pain 14:43:19 77 14 95 16.5 87/42(65) NSR 0 (11) 10(A) , No pain 14:47:33 69 11 100 18.8 91/36(73) NSR 0 (11) 10(A) , No pain 14:51:43 70 19 100 0 90/52(72) NSR 0 (11) 10(A) , No pain 14:55:50 87 23 77 0 106/52(87) NSR 0 (11) 10(A) , No pain Medications Time Medication Route Dose Verified Delivered Reason Notes Effective ness by by 14:01:49 Oxygen etCO2 2 Geremias Gabriel Per Nasal l/min St Justin Nava RN physician cannula 14:02:00 0.9% NaCl I.V. 100 Geremias Gabriel Per ml/hr St Justin Nava RN physician 14:02:18 Refer to Geremias Gabriel Per Anesthesia St Justin Nava RN physician Notes for MD Sedation Medications Procedure Log Time Note 13:38:54 Abhijeet Mcintyre RT(R) sent for patient. Start room use. 13:38:55 Time tracking: Regular hours (M-F 7:00 - 5:00) 13:39:00 Plan of Care:Hemodynamics will remain stable., Cardiac rhythm will remain stable., Comfort level will be maintained., Respiratory function will remain adequate., Patient/ family verbilizes understanding of procedure., Procedure tolerated without complication., Recovers from procedure without complications.. 13:52:44 Patient received from PCU to CCL 3 Alert and oriented. Tansferred to table in Supine position. 13:52:48 Warm blankets applied, and danii hugger turned on for patient comfort. 13:52:50 Correct patient and procedure confirmed by team. 13:52:57 Signed procedure consent form obtained from patient. 13:53:00 ECG and BP/O2 sat monitors applied to patient. 13:55:26 Vital chart was started 13:56:33 Baseline sample Acquired. 13:56:38 Rhythm: sinus rhythm 13:56:39 Full Disclosure recording started 13:56:44 H&P Date Dictated: 07/22/2018 Within 30 days and on chart.. 13:56:45 Pre-procedure instructions explained to patient. 13:56:46 Pre-op teaching completed and patient verbalized understanding. 13:56:53 Family in patients room. 13:56:56 Patient NPO since Midnight. 13:56:57 Is the patient allergic to Iodine/contrast media? No. 13:56:59 Is patient on blood thinner?No 13:57:01 Patient diabetic? No. 13:57:07 Previous problem with sedation/anesthesia? No ? 13:57:09 Snore? Yes 13:57:10 Sleep apnea? No 13:57:12 Deviated septum? No 13:57:14 Opens mouth fully? Yes 13:57:14 Sticks out tongue? Yes 13:57:16 Airway obstruction? No ? 13:57:18 Dentures? No ? 13:57:31 Patient pain scale 0/10 ?. 13:57:36 IV patent on arrival in right hand with 0.9% NaCl at O. 13:57:38 Lab results completed and on chart. 13:57:43 Alarms reviewed by R. N. 13:58:16 Hamlet Cobb Psychological Stress Evaluator present for SMITA. 14:01:49 Oxygen 2 l/min etCO2 Nasal cannula was administered by Harvey Nava RN; Per physician; 14:02:00 0.9% NaCl 100 ml/hr I.V. was administered by Harvey Nava RN; Per physician; 14:02:18 Refer to Anesthesia Notes for Sedation Medications was administered by Harvey Nava RN; Per physician; 14:06:38 Héctor Maldonado MD present and monitoring patient for TIVA. 14:24:54 Case delayed due to physician working in [facility]. 14:45:25 Physician arrived 14:45:26 --------ALL STOP TIME OUT------ 14:45:27 Final Timeout: patient, procedure, and site verified with staff and physician. All members of the team are in agreement. 14:45:34 Physical assessment completed. ASA score P 2 - A patient with mild systemic disease as per Geremias Romano MD. 14:45:39 Sedation plan: TIVA Medication:Propofol 14:47:16 SMITA started. 14:57:28 SMITA completed. 14:57:35 Procedure ended.(Physican Out) 14:58:05 Fluoroscopy time 00.00 minutes. 14:58:13 Fluoroscopy dose: 0 mGy 14:58:13 Flurop Dose total: 0 14:58:16 Contrast amount:Isovue 300 0ml. 14:58:20 Sharps counted by scrub and verified by R.N. 14:58:21 Insertion/operative site no bleeding no hematoma. 14:58:28 Post procedure rhythm: unchanged. 14:58:38 Estimated blood loss: 0 ml 14:58:46 Post procedure instruction explained to patient.Patient verbalizes understanding. 14:58:47 Patient needs reinforcement of post procedure teaching. 14:59:01 Procedure and supply charges have been captured, reviewed, submitted and are correct. 14:59:06 Procedure Complication : No complications 14:59:09 Vital chart was stopped 14:59:09 See physician's report for complete and final results. 14:59:22 Report given to [facility]. 14:59:25 Patient transfered to [facility] with Stretcher. 14:59:28 End room use (Document Last) Signature Audit [place] Stage Time Signature Unsigned Intra-Procedure 07/22/2018 Sully Gotti 3:00:28 PM RT(R) Signatures Monitor : Sully Gotti RT Signature : Date : Time : [address] [place] [address]
--- NOTE | ~2018-07-06 | OP ---
PATIENT NAME: TRIP HERNANDEZ MEDICAL RECORD: [id number] :31 LOCATION:D.M2 D.2118 ADMISSION DATE:07/08/18 SURGEON: BERENICE ORTIZ MD DATE OF OPERATION: 07/22/2018 TRANSESOPHAGEAL NOTE After general sedation via TIVA anesthesia, transesophageal Omniplane probe placed in the distal esophagus and proximal stomach without difficulty. FINDINGS: LVH present. LV internal dimension is normal. Wall motion is normal. EF is greater than or equal to 55%. A prosthetic aortic valve is well visualized with adequate excursion of the valve leaflets. There appears to be a moderate jet of AI, this does not appear to be perivalvular, but involving the valve proper. Left atrium appears dilated. Left atrial appendage is well visualized with adequate contractility. Mitral valve shows mitral annular calcifications, moderate MR. Right-sided chambers are normal. Mild TR. TRANSINT:[id number] Voice Confirmation ID: [id number] DOCUMENT ID: [id number] BERENICE ORTIZ MD at 1449 CC: [id number] DICTATION DATE: 07/22/18 1503 BRIDGE BUILDER: 07/22/18 1533 DIS IN 07/23/18 [facility] [address] [place] [address]
--- NOTE | ~2018-07-06 | EC ---
PATIENT:TRIP HERNANDEZ DATE OF SERVICE: 07/08/18 SEX: M MEDICAL RECORD: [id number] DATE OF : 31 LOCATION:D. D.211 AGE OF PATIENT: 87 ADMISSION DATE: 07/08/18 REFERRING PHYSICIAN: INTERPRETING PHYSICIAN: CHINA WRIGHT MD ECHOCARDIOGRAM REPORT ECHO CHARGES 4 ECHO COMPLETE Date: 07/08 CLINICAL DIAGNOSIS: CHF ECHOCARDIOGRAPHIC MEASUREMENTS (adult normal given) AC root (d.<3.7cm) 1.9 cm LV Septum d (<1.2 cm> 1.4 cm Valve Excursion 1.1 cm LV Septum (systole) 1.6 cm Left Atria (s.<4.0cm> 4.4 cm LVPW d(<1.2cm) 0.7 cm RV (d.<2.3cm) 3.5 cm LVPW (sytole) 1.6 cm LV diastole(<5.6CM) 5.6 cm MV E-F(>70mm/sec) cm LV systole 4.9 cm LVOT Diameter 1.9 cm MV exc.(>10mm) cm Est.ejection fraction (50-75%) % DOPPLER: LVIT cm/sec A 92 cm/sec E 108 cm/sec LA cm/sec RVSP 40.0 mmHg LVOT 191 cm/sec AOP1/2T m/s Asc. Ao 339 cm/sec RVOT 66 cm/sec RA cm/sec PA 68 cm/sec AV Gradient Peak 46.0 mmHg AV Mean 24.0 mmHg AV Area 1.7 cm MV Gradient Peak 12.3 mmHg MV Mean 5.7 mmHg MV Area cm COMMENTS: Optical Effects Line Up Person: Rene [facility] Director Credit Risk: Serenity Keller TAPE# PACS Pericardial Effusion N DATE OF SERVICE: FINDINGS: 1. Left ventricular chamber size is within normal limits. Left ventricular systolic function is normal. Overall ejection fraction estimated at 60%. 2. Left atrium is enlarged at 4.4 cm. Right atrium and right ventricle chamber sizes are moderately dilated. 3. Valvular structures have normal structure and motion. 4. Doppler interrogation reveals severe aortic insufficiency, moderate to severe mitral regurgitation, moderate to severe tricuspid regurgitation, no ECHOCARDIOGRAM REPORT [id number] TRIP HERNANDEZ other valvular insufficiency or stenosis. Pulmonary systolic pressure is estimated at 40 mmHg. 5. No evidence of pericardial effusion or left ventricular thrombus. TRANSINT:[id number] Voice Confirmation ID: [id number] DOCUMENT ID: [id number] CHINA WRIGHT MD at 1752 CC: [id number] DICTATION DATE: 07/08/[address] COMMISSIONER: 07/08/18 1818 ADM IN [facility] [address] [place] [address]
[~2018-07-06 22:50] MED LIST changes: +CARDIZEM CD180 MG PO; +ENTRESTO 24 MG1 EACH PO; +K-TAB10 MEQ PO
[2018-07-06 23:42] LABS: HEMATOCRIT 29.5 % (42.0-54.0); HEMOGLOBIN 10.6 g/dL (13.5-17.5); LYMPHOCYTES 11.3 % (15-50); MCH 29.9 pg (26.0-34.0); MCHC 35.9 g/dL (31.0-37.0); MCV 83.3 fL (80.0-100.0); MEAN PLATELET VOLUME 10.4 fL (7.4-10.4); NEUTROPHILS 77.7 % (40-80); PLATELET COUNT 120 10x3/uL (130-400); RBC 3.54 10x6/uL (4.20-6.10); RDW 13.5 % (11.5-14.5)
[2018-07-06 23:43] LABS: WBC 7.2 10x3/uL (4.8-10.8)
[2018-07-06 23:57] LABS: APTT 32.4 SECONDS (22.8-39.4); INR 1.05 (0.85-1.17); PROTIME 13.3 SECONDS (11.6-15.0)
[2018-07-07] VITALS (10 sets, daily range): BP systolic 111–123; BP diastolic 39–52; BMI 23.6
[2018-07-07 00:01] LABS: ALBUMIN 3.5 g/dL (3.4-5.0); ALKALINE PHOSPHATASE 60 U/L (46-116); ALT (SGPT) 26 U/L (10-68); BILIRUBIN - TOTAL 0.39 mg/dL (0.2-1.3); CALC OSMOLALITY 252 mosm/kg (275-300); CALCIUM 8.1 mg/dL (8.5-10.1); CARBON DIOXIDE 18.9 mmol/L (21.0-32.0); CHLORIDE - SERUM 92 mmol/L (98-107); CREATININE - SERUM 1.5 mg/dL (0.6-1.3); GLUCOSE 122 mg/dL (74-106); POTASSIUM - SERUM 4.3 mmol/L (3.5-5.1); PROTEIN - SERUM 6.6 g/dL (6.4-8.2); SODIUM 123 mmol/L (136-145); UREA NITROGEN 23 mg/dL (7-18); eGFR NON AFRICAN AMERICAN 47 mL/min (90-120)
[2018-07-07 00:16] LABS: CREATINE KINASE 84 UL (21-232); PRO BNP 4696 pg/mL (0-450); TROPONIN-I 0.023 ng/mL (0.000-0.060)
[2018-07-07 00:59] LABS: CKMB 1.8 U/L (0.0-3.6)
[2018-07-07 07:12] LABS: BASOPHILS 0.2 % (0-2); HEMATOCRIT 30.9 % (42.0-54.0); HEMOGLOBIN 10.6 g/dL (13.5-17.5); IMMATURE GRANULOCYTES 0.3 % (0-5); LYMPHOCYTES 18.3 % (15-50); MCH 28.9 pg (26.0-34.0); MCHC 34.3 g/dL (31.0-37.0); MCV 84.2 fL (80.0-100.0); MEAN PLATELET VOLUME 10.8 fL (7.4-10.4); MONOCYTES 10.9 % (2-11); NEUTROPHILS 69.3 % (40-80); PLATELET COUNT 113 10x3/uL (130-400); RBC 3.67 10x6/uL (4.20-6.10); RDW 13.3 % (11.5-14.5); WBC 5.9 10x3/uL (4.8-10.8)
[2018-07-07 08:35] LABS: CALC OSMOLALITY 255 mosm/kg (275-300); CALCIUM 7.9 mg/dL (8.5-10.1); CARBON DIOXIDE 17.6 mmol/L (21.0-32.0); CHLORIDE - SERUM 93 mmol/L (98-107); CKMB 1.9 U/L (0.0-3.6); CREATINE KINASE 95 UL (21-232); CREATININE - SERUM 1.4 mg/dL (0.6-1.3); GLUCOSE 104 mg/dL (74-106); MAGNESIUM - SERUM 2.1 mg/dL (1.8-2.4); POTASSIUM - SERUM 4.1 mmol/L (3.5-5.1); PRO BNP 4597 pg/mL (0-450); SODIUM 125 mmol/L (136-145); TROPONIN-I 0.016 ng/mL (0.000-0.060); UREA NITROGEN 25 mg/dL (7-18); eGFR NON AFRICAN AMERICAN 51 mL/min (90-120)
[2018-07-08 06:11] VITALS: BP 104/46
[2018-07-08 06:16] LABS: BASOPHILS 0.2 % (0-2); EOSINOPHILS 3.8 % (0-7); HEMATOCRIT 29.3 % (42.0-54.0); IMMATURE GRANULOCYTES 0.2 % (0-5); LYMPHOCYTES 21.3 % (15-50); MCHC 34.1 g/dL (31.0-37.0); MCV 84.9 fL (80.0-100.0); MONOCYTES 11.4 % (2-11); NEUTROPHILS 63.1 % (40-80); PLATELET COUNT 118 10x3/uL (130-400); RBC 3.45 10x6/uL (4.20-6.10); RDW 13.4 % (11.5-14.5); WBC 5.8 10x3/uL (4.8-10.8)
[2018-07-08 06:39] LABS: ALBUMIN 3.2 g/dL (3.4-5.0); ANION GAP 11.3 mmol/L (8-16); BILIRUBIN - TOTAL 0.28 mg/dL (0.2-1.3); CALCIUM 7.8 mg/dL (8.5-10.1); CARBON DIOXIDE 22.9 mmol/L (21.0-32.0); CREATININE - SERUM 1.4 mg/dL (0.6-1.3); POTASSIUM - SERUM 4.2 mmol/L (3.5-5.1)
[2018-07-08 08:27] VITALS: BP 130/48
[2018-07-08 11:33] VITALS: BP 111/45
[2018-07-08 12:17] VITALS: BMI 26.6
[2018-07-08 14:26] VITALS: Ht 180.3 cm; Wt 81.4 kg
[2018-07-08 16:14] VITALS: BP 120/41
[2018-07-08 19:23] LABS: APPEARANCE CLEAR (CLEAR); COLOR YELLOW (YELLOW)
[2018-07-08 19:24] LABS: BILIRUBIN NEGATIVE (NEGATIVE); CHLORIDE - UR 70 mmol/L (55-125); GLUCOSE NEGATIVE (NEGATIVE); KETONE NEGATIVE (NEGATIVE); NA - URINE 36 MMOL/L (20-110); NITRITE NEGATIVE (NEGATIVE); PROTEIN NEGATIVE (NEGATIVE); UROBILINOGEN NORMAL (NORMAL)
[2018-07-08 19:28] LABS: BACTERIA FEW /hpf (NONE SEEN); EPITHELIAL CELLS RARE /hpf (0-5); WHITE CELLS - URINE OCC /hpf (0-5)
[2018-07-08 21:00] VITALS: BP 117/43
[2018-07-09 02:11] VITALS: BP 109/39
[2018-07-09 05:58] LABS: BASOPHILS 0.3 % (0-2); HEMATOCRIT 27.7 % (42.0-54.0); HEMOGLOBIN 9.4 g/dL (13.5-17.5); IMMATURE GRANULOCYTES 0.2 % (0-5); LYMPHOCYTES 11.8 % (15-50); MCH 28.7 pg (26.0-34.0); MCHC 33.9 g/dL (31.0-37.0); MCV 84.7 fL (80.0-100.0); MEAN PLATELET VOLUME 10.5 fL (7.4-10.4); MONOCYTES 11.3 % (2-11); NEUTROPHILS 75.4 % (40-80); PLATELET COUNT 109 10x3/uL (130-400); RBC 3.27 10x6/uL (4.20-6.10); RDW 13.4 % (11.5-14.5); WBC 5.8 10x3/uL (4.8-10.8)
[2018-07-09 06:28] VITALS: BP 120/36
[2018-07-09 06:42] LABS: ALBUMIN 2.9 g/dL (3.4-5.0); BILIRUBIN - TOTAL 0.37 mg/dL (0.2-1.3); CALCIUM 7.3 mg/dL (8.5-10.1); CARBON DIOXIDE 18.8 mmol/L (21.0-32.0); CREATININE - SERUM 1.4 mg/dL (0.6-1.3); POTASSIUM - SERUM 3.8 mmol/L (3.5-5.1); PROTEIN - SERUM 5.5 g/dL (6.4-8.2)
[2018-07-09 08:03] VITALS: BP 122/62
[2018-07-09 11:10] VITALS: BP 122/44
[2018-07-09 15:21] VITALS: BP 119/46
[2018-07-09 15:50] LABS: % SATURATION 7 % (15-55); IRON 22 ug/dl (35-150); TOTAL IRON BIND CAPACITY 306 ug/dl (260-445); UNSAT IRON BIND CAPACITY 284 ug/dl (150-375)
[2018-07-09 21:12] VITALS: BP 128/47
[2018-07-10 02:11] VITALS: BP 114/44
[2018-07-10 04:31] LABS: BASOPHILS 0.2 % (0-2); EOSINOPHILS 0.7 % (0-7); HEMATOCRIT 28.3 % (42.0-54.0); HEMOGLOBIN 9.7 g/dL (13.5-17.5); IMMATURE GRANULOCYTES 0.2 % (0-5); LYMPHOCYTES 10.4 % (15-50); MCHC 34.3 g/dL (31.0-37.0); MCV 84.5 fL (80.0-100.0); MEAN PLATELET VOLUME 10.5 fL (7.4-10.4); MONOCYTES 11.7 % (2-11); NEUTROPHILS 76.8 % (40-80); PLATELET COUNT 114 10x3/uL (130-400); RBC 3.35 10x6/uL (4.20-6.10); RDW 13.4 % (11.5-14.5); WBC 5.9 10x3/uL (4.8-10.8)
[2018-07-10 04:47] LABS: ALBUMIN 3.2 g/dL (3.4-5.0); ANION GAP 16.5 mmol/L (8-16); BILIRUBIN - TOTAL 0.27 mg/dL (0.2-1.3); CALCIUM 7.9 mg/dL (8.5-10.1); CARBON DIOXIDE 19.5 mmol/L (21.0-32.0); CREATININE - SERUM 1.6 mg/dL (0.6-1.3); PROTEIN - SERUM 6.1 g/dL (6.4-8.2)
[2018-07-10 06:12] VITALS: BP 115/46
[2018-07-10 08:41] VITALS: BP 124/40
[2018-07-10 09:13] LABS: FOLATE (FOLIC ACID) - SERUM >20.0 ng/mL (>3.0)
[2018-07-10 18:39] VITALS: BP 120/45
[2018-07-10 20:00] VITALS: BP 121/41
[2018-07-10 23:57] VITALS: BP 120/48
[2018-07-11 04:00] VITALS: BP 119/44
[2018-07-11 05:39] LABS: BASOPHILS 0.2 % (0-2); EOSINOPHILS 1.8 % (0-7); HEMATOCRIT 28.7 % (42.0-54.0); HEMOGLOBIN 9.8 g/dL (13.5-17.5); IMMATURE GRANULOCYTES 0.2 % (0-5); LYMPHOCYTES 15.1 % (15-50); MCH 28.8 pg (26.0-34.0); MCHC 34.1 g/dL (31.0-37.0); MCV 84.4 fL (80.0-100.0); MEAN PLATELET VOLUME 10.4 fL (7.4-10.4); MONOCYTES 10.7 % (2-11); PLATELET COUNT 120 10x3/uL (130-400); RDW 13.4 % (11.5-14.5); WBC 6.1 10x3/uL (4.8-10.8)
[2018-07-11 06:25] LABS: ALBUMIN 3.3 g/dL (3.4-5.0); ANION GAP 13.2 mmol/L (8-16); BILIRUBIN - TOTAL 0.37 mg/dL (0.2-1.3); CALCIUM 8.2 mg/dL (8.5-10.1); CARBON DIOXIDE 21.4 mmol/L (21.0-32.0); CREATININE - SERUM 1.5 mg/dL (0.6-1.3); POTASSIUM - SERUM 3.6 mmol/L (3.5-5.1); PROTEIN - SERUM 6.1 g/dL (6.4-8.2)
[2018-07-11 12:55] VITALS: BP 118/43
[2018-07-11 20:00] VITALS: BP 137/49
[2018-07-12] VITALS: BP 126/52
[2018-07-12 04:00] VITALS: BP 123/49
[2018-07-12 05:43] LABS: BASOPHILS 0.4 % (0-2); EOSINOPHILS 1.2 % (0-7); HEMATOCRIT 28.2 % (42.0-54.0); HEMOGLOBIN 9.7 g/dL (13.5-17.5); IMMATURE GRANULOCYTES 0.1 % (0-5); LYMPHOCYTES 11.2 % (15-50); MCH 28.9 pg (26.0-34.0); MCHC 34.4 g/dL (31.0-37.0); MCV 83.9 fL (80.0-100.0); MEAN PLATELET VOLUME 10.8 fL (7.4-10.4); MONOCYTES 12.3 % (2-11); NEUTROPHILS 74.8 % (40-80); PLATELET COUNT 117 10x3/uL (130-400); RBC 3.36 10x6/uL (4.20-6.10); RDW 13.4 % (11.5-14.5)
[2018-07-12 05:44] LABS: WBC 8.1 10x3/uL (4.8-10.8)
[2018-07-12 07:50] LABS: ALBUMIN 3.3 g/dL (3.4-5.0); ANION GAP 13.5 mmol/L (8-16); BILIRUBIN - TOTAL 0.49 mg/dL (0.2-1.3); CALCIUM 8.2 mg/dL (8.5-10.1); CARBON DIOXIDE 22.9 mmol/L (21.0-32.0); CREATININE - SERUM 1.4 mg/dL (0.6-1.3); POTASSIUM - SERUM 3.4 mmol/L (3.5-5.1); PROTEIN - SERUM 6.3 g/dL (6.4-8.2)
[2018-07-12 12:32] VITALS: BP 107/59
[2018-07-12 17:05] VITALS: BP 130/50
[2018-07-12 20:36] VITALS: BP 118/42
[2018-07-13 04:59] VITALS: BP 127/48
[2018-07-13 06:10] LABS: BASOPHILS 0.3 % (0-2); EOSINOPHILS 2.3 % (0-7); HEMATOCRIT 27.5 % (42.0-54.0); HEMOGLOBIN 9.5 g/dL (13.5-17.5); IMMATURE GRANULOCYTES 0.3 % (0-5); LYMPHOCYTES 13.8 % (15-50); MCH 29.1 pg (26.0-34.0); MCHC 34.5 g/dL (31.0-37.0); MCV 84.1 fL (80.0-100.0); MEAN PLATELET VOLUME 10.3 fL (7.4-10.4); MONOCYTES 12.7 % (2-11); NEUTROPHILS 70.6 % (40-80); PLATELET COUNT 118 10x3/uL (130-400); RBC 3.27 10x6/uL (4.20-6.10); RDW 13.5 % (11.5-14.5); WBC 6.2 10x3/uL (4.8-10.8)
[2018-07-13 06:33] LABS: ANION GAP 14.2 mmol/L (8-16); CALCIUM 8.2 mg/dL (8.5-10.1); CARBON DIOXIDE 22.3 mmol/L (21.0-32.0); CREATININE - SERUM 1.6 mg/dL (0.6-1.3); POTASSIUM - SERUM 3.5 mmol/L (3.5-5.1)
[2018-07-13 07:39] VITALS: BP 114/42
[2018-07-13 11:51] VITALS: BP 115/59
[2018-07-13 15:15] VITALS: BP 113/45
[2018-07-13 20:15] VITALS: BP 113/42
[2018-07-14 05:28] VITALS: BP 117/43
[2018-07-14 05:55] LABS: BASOPHILS 0.4 % (0-2); EOSINOPHILS 2.1 % (0-7); HEMATOCRIT 27.6 % (42.0-54.0); HEMOGLOBIN 9.5 g/dL (13.5-17.5); IMMATURE GRANULOCYTES 0.4 % (0-5); LYMPHOCYTES 13.1 % (15-50); MCH 28.7 pg (26.0-34.0); MCHC 34.4 g/dL (31.0-37.0); MCV 83.4 fL (80.0-100.0); MEAN PLATELET VOLUME 10.3 fL (7.4-10.4); PLATELET COUNT 116 10x3/uL (130-400); RBC 3.31 10x6/uL (4.20-6.10); RDW 13.4 % (11.5-14.5); WBC 5.3 10x3/uL (4.8-10.8)
[2018-07-14 06:13] LABS: ANION GAP 13.9 mmol/L (8-16); CALCIUM 8.1 mg/dL (8.5-10.1); CARBON DIOXIDE 21.7 mmol/L (21.0-32.0); CREATININE - SERUM 1.5 mg/dL (0.6-1.3); POTASSIUM - SERUM 3.6 mmol/L (3.5-5.1)
[2018-07-14 09:12] VITALS: BP 116/35
[2018-07-14 12:08] VITALS: BP 124/40
[2018-07-14 16:05] VITALS: BP 122/37
[2018-07-14 20:42] VITALS: BP 113/44
[2018-07-15 00:59] VITALS: BP 129/53
[2018-07-15 05:14] VITALS: BP 128/46
[2018-07-15 05:25] LABS: ANION GAP 12.1 mmol/L (8-16); CALCIUM 8.2 mg/dL (8.5-10.1); CARBON DIOXIDE 24.3 mmol/L (21.0-32.0); CREATININE - SERUM 1.5 mg/dL (0.6-1.3); POTASSIUM - SERUM 3.4 mmol/L (3.5-5.1)
[2018-07-15 05:26] LABS: BASOPHILS 0.3 % (0-2); EOSINOPHILS 2.1 % (0-7); HEMATOCRIT 30.5 % (42.0-54.0); HEMOGLOBIN 10.2 g/dL (13.5-17.5); IMMATURE GRANULOCYTES 0.2 % (0-5); LYMPHOCYTES 14.1 % (15-50); MCH 28.7 pg (26.0-34.0); MCHC 33.4 g/dL (31.0-37.0); MCV 85.9 fL (80.0-100.0); MEAN PLATELET VOLUME 9.8 fL (7.4-10.4); MONOCYTES 11.6 % (2-11); NEUTROPHILS 71.7 % (40-80); PLATELET COUNT 118 10x3/uL (130-400); RBC 3.55 10x6/uL (4.20-6.10); RDW 13.5 % (11.5-14.5); WBC 6.5 10x3/uL (4.8-10.8)
[2018-07-15 07:30] VITALS: BP 120/55
[2018-07-15 11:40] VITALS: BP 125/61
[2018-07-15 16:21] VITALS: BP 113/66
[2018-07-15 21:09] VITALS: BP 100/44
[2018-07-16 05:50] VITALS: BP 111/41
[2018-07-16 06:08] LABS: BASOPHILS 0.5 % (0-2); EOSINOPHILS 1.8 % (0-7); HEMATOCRIT 28.5 % (42.0-54.0); HEMOGLOBIN 9.8 g/dL (13.5-17.5); IMMATURE GRANULOCYTES 0.3 % (0-5); LYMPHOCYTES 13.1 % (15-50); MCH 28.7 pg (26.0-34.0); MCHC 34.4 g/dL (31.0-37.0); MEAN PLATELET VOLUME 9.7 fL (7.4-10.4); MONOCYTES 12.1 % (2-11); NEUTROPHILS 72.2 % (40-80); PLATELET COUNT 115 10x3/uL (130-400); RBC 3.42 10x6/uL (4.20-6.10); RDW 13.3 % (11.5-14.5); WBC 6.1 10x3/uL (4.8-10.8)
[2018-07-16 06:19] LABS: MCV 83.3 fL (80.0-100.0)
[2018-07-16 06:33] LABS: ANION GAP 13.3 mmol/L (8-16); CALCIUM 8.5 mg/dL (8.5-10.1); CREATININE - SERUM 1.7 mg/dL (0.6-1.3); POTASSIUM - SERUM 3.3 mmol/L (3.5-5.1)
[2018-07-16 08:25] VITALS: BP 127/43
[2018-07-16 11:43] VITALS: BP 120/70
[2018-07-16 15:10] VITALS: BP 128/76
[2018-07-16 20:00] VITALS: BP 108/47
[2018-07-17] VITALS: BP 113/40
[2018-07-17 04:00] VITALS: BP 117/42
[2018-07-17 05:46] LABS: BASOPHILS 0.4 % (0-2); EOSINOPHILS 2.3 % (0-7); HEMATOCRIT 28.2 % (42.0-54.0); HEMOGLOBIN 9.6 g/dL (13.5-17.5); IMMATURE GRANULOCYTES 0.2 % (0-5); LYMPHOCYTES 15.9 % (15-50); MCH 28.7 pg (26.0-34.0); MCV 84.4 fL (80.0-100.0); MEAN PLATELET VOLUME 10.2 fL (7.4-10.4); MONOCYTES 9.5 % (2-11); NEUTROPHILS 71.7 % (40-80); PLATELET COUNT 123 10x3/uL (130-400); RBC 3.34 10x6/uL (4.20-6.10); RDW 13.6 % (11.5-14.5); WBC 5.7 10x3/uL (4.8-10.8)
[2018-07-17 06:00] LABS: ANION GAP 12.9 mmol/L (8-16); CALCIUM 8.2 mg/dL (8.5-10.1); CARBON DIOXIDE 27.4 mmol/L (21.0-32.0); CREATININE - SERUM 1.8 mg/dL (0.6-1.3); POTASSIUM - SERUM 3.3 mmol/L (3.5-5.1)
[2018-07-17 08:09] VITALS: BP 107/40
[2018-07-17 11:46] VITALS: BP 110/40
[2018-07-17 15:14] VITALS: BP 113/44
[2018-07-17 20:01] VITALS: BP 119/42
[2018-07-18] VITALS (7 sets, daily range): BP systolic 108–134; BP diastolic 38–54
[2018-07-18 05:30] LABS: BASOPHILS 0.5 % (0-2); EOSINOPHILS 1.9 % (0-7); HEMATOCRIT 28.3 % (42.0-54.0); HEMOGLOBIN 9.6 g/dL (13.5-17.5); IMMATURE GRANULOCYTES 0.2 % (0-5); LYMPHOCYTES 17.7 % (15-50); MCH 28.8 pg (26.0-34.0); MCHC 33.9 g/dL (31.0-37.0); MEAN PLATELET VOLUME 10.6 fL (7.4-10.4); MONOCYTES 9.8 % (2-11); NEUTROPHILS 69.9 % (40-80); PLATELET COUNT 123 10x3/uL (130-400); RBC 3.33 10x6/uL (4.20-6.10); RDW 13.8 % (11.5-14.5); WBC 5.7 10x3/uL (4.8-10.8)
[2018-07-18 05:31] LABS: ANION GAP 13.9 mmol/L (8-16); CALCIUM 8.2 mg/dL (8.5-10.1); CARBON DIOXIDE 27.3 mmol/L (21.0-32.0); CREATININE - SERUM 1.7 mg/dL (0.6-1.3); POTASSIUM - SERUM 3.2 mmol/L (3.5-5.1)
[2018-07-19 04:16] VITALS: BP 109/39
[2018-07-19 04:48] LABS: BASOPHILS 0.7 % (0-2); EOSINOPHILS 2.2 % (0-7); HEMATOCRIT 28.9 % (42.0-54.0); HEMOGLOBIN 9.6 g/dL (13.5-17.5); IMMATURE GRANULOCYTES 0.2 % (0-5); LYMPHOCYTES 16.2 % (15-50); MCH 28.4 pg (26.0-34.0); MCHC 33.2 g/dL (31.0-37.0); MCV 85.5 fL (80.0-100.0); MEAN PLATELET VOLUME 9.8 fL (7.4-10.4); MONOCYTES 10.6 % (2-11); NEUTROPHILS 70.1 % (40-80); PLATELET COUNT 121 10x3/uL (130-400); RBC 3.38 10x6/uL (4.20-6.10); WBC 5.9 10x3/uL (4.8-10.8)
[2018-07-19 04:55] LABS: ANION GAP 12.6 mmol/L (8-16); CALCIUM 8.4 mg/dL (8.5-10.1); CARBON DIOXIDE 28.7 mmol/L (21.0-32.0); CREATININE - SERUM 1.9 mg/dL (0.6-1.3); POTASSIUM - SERUM 3.3 mmol/L (3.5-5.1)
[2018-07-19 07:49] VITALS: BP 113/44
[2018-07-19 11:03] VITALS: BP 107/58
[2018-07-19 20:00] VITALS: BP 124/33
[2018-07-20 04:17] VITALS: BP 111/39
[2018-07-20 06:41] LABS: BASOPHILS 0.2 % (0-2); EOSINOPHILS 2.2 % (0-7); HEMATOCRIT 29.2 % (42.0-54.0); HEMOGLOBIN 9.8 g/dL (13.5-17.5); IMMATURE GRANULOCYTES 0.2 % (0-5); LYMPHOCYTES 13.5 % (15-50); MCHC 33.6 g/dL (31.0-37.0); MCV 86.4 fL (80.0-100.0); MEAN PLATELET VOLUME 10.2 fL (7.4-10.4); MONOCYTES 10.2 % (2-11); NEUTROPHILS 73.7 % (40-80); PLATELET COUNT 118 10x3/uL (130-400); RBC 3.38 10x6/uL (4.20-6.10)
[2018-07-20 07:07] LABS: ANION GAP 12.9 mmol/L (8-16); CALCIUM 8.3 mg/dL (8.5-10.1); CARBON DIOXIDE 27.3 mmol/L (21.0-32.0); CREATININE - SERUM 1.9 mg/dL (0.6-1.3)
[2018-07-20 07:09] LABS: POTASSIUM - SERUM 3.2 mmol/L (3.5-5.1)
[2018-07-20 07:47] VITALS: BP 122/48
[2018-07-20 11:00] VITALS: BP 131/58
[2018-07-20 20:00] VITALS: BP 124/46
[2018-07-21 04:00] VITALS: BP 124/47
[2018-07-21 05:37] LABS: BASOPHILS 0.4 % (0-2); EOSINOPHILS 2.3 % (0-7); HEMATOCRIT 29.4 % (42.0-54.0); HEMOGLOBIN 9.8 g/dL (13.5-17.5); IMMATURE GRANULOCYTES 0.2 % (0-5); LYMPHOCYTES 19.1 % (15-50); MCH 29.2 pg (26.0-34.0); MCHC 33.3 g/dL (31.0-37.0); MCV 87.5 fL (80.0-100.0); MEAN PLATELET VOLUME 10.6 fL (7.4-10.4); MONOCYTES 7.9 % (2-11); NEUTROPHILS 70.1 % (40-80); PLATELET COUNT 121 10x3/uL (130-400); RBC 3.36 10x6/uL (4.20-6.10); RDW 14.3 % (11.5-14.5); WBC 5.7 10x3/uL (4.8-10.8)
[2018-07-21 05:58] LABS: ANION GAP 12.8 mmol/L (8-16); CARBON DIOXIDE 28.6 mmol/L (21.0-32.0); CREATININE - SERUM 1.9 mg/dL (0.6-1.3); POTASSIUM - SERUM 3.4 mmol/L (3.5-5.1)
[2018-07-21 07:41] VITALS: BP 108/47
[2018-07-21 11:36] VITALS: BP 111/39
[2018-07-21 15:01] VITALS: BP 102/36
[2018-07-21 18:09] LABS: SPE - A/G RATIO 1.6 (0.7-1.7); SPE - ALBUMIN 3.7 g/dL (2.9-4.4); SPE - ALPHA-1 GLOBULIN 0.2 g/dL (0.0-0.4); SPE - ALPHA-2 GLOBULIN 0.6 g/dL (0.4-1.0); SPE - GAMMA GLOBULIN 0.4 g/dL (0.4-1.8); SPE - M-SPIKE Not Observed g/dL (Not Observed)
[2018-07-21 20:19] VITALS: BP 123/40
[2018-07-22] VITALS: BP 114/42
[2018-07-22 04:00] VITALS: BP 111/39
[2018-07-22 05:03] LABS: BASOPHILS 0.5 % (0-2); EOSINOPHILS 2.5 % (0-7); HEMATOCRIT 29.5 % (42.0-54.0); HEMOGLOBIN 9.7 g/dL (13.5-17.5); LYMPHOCYTES 19.8 % (15-50); MCH 28.8 pg (26.0-34.0); MCHC 32.9 g/dL (31.0-37.0); MCV 87.5 fL (80.0-100.0); MEAN PLATELET VOLUME 10.6 fL (7.4-10.4); MONOCYTES 10.7 % (2-11); NEUTROPHILS 66.5 % (40-80); PLATELET COUNT 112 10x3/uL (130-400); RBC 3.37 10x6/uL (4.20-6.10); RDW 14.3 % (11.5-14.5); WBC 5.6 10x3/uL (4.8-10.8)
[2018-07-22 05:24] LABS: ANION GAP 10.5 mmol/L (8-16); CALCIUM 8.1 mg/dL (8.5-10.1); CARBON DIOXIDE 30.1 mmol/L (21.0-32.0); CREATININE - SERUM 1.9 mg/dL (0.6-1.3); POTASSIUM - SERUM 3.6 mmol/L (3.5-5.1)
[2018-07-22 08:06] VITALS: BP 104/32
[2018-07-22 11:40] VITALS: BP 111/37
[2018-07-22 16:21] VITALS: BP 108/42
[2018-07-22 20:00] VITALS: BP 99/41
[2018-07-23] VITALS: BP 117/44
[2018-07-23 04:00] VITALS: BP 104/56
[2018-07-23 08:11] VITALS: BP 119/41
[2018-07-23 08:35] LABS: BASOPHILS 0.5 % (0-2); EOSINOPHILS 2.3 % (0-7); HEMATOCRIT 31.1 % (42.0-54.0); HEMOGLOBIN 10.2 g/dL (13.5-17.5); IMMATURE GRANULOCYTES 0.2 % (0-5); LYMPHOCYTES 19.3 % (15-50); MCHC 32.8 g/dL (31.0-37.0); MCV 88.4 fL (80.0-100.0); MEAN PLATELET VOLUME 10.5 fL (7.4-10.4); MONOCYTES 9.1 % (2-11); NEUTROPHILS 68.6 % (40-80); PLATELET COUNT 113 10x3/uL (130-400); RBC 3.52 10x6/uL (4.20-6.10); RDW 14.5 % (11.5-14.5)
[2018-07-23 08:48] LABS: CALCIUM 8.2 mg/dL (8.5-10.1); CARBON DIOXIDE 30.5 mmol/L (21.0-32.0); MAGNESIUM - SERUM 2.3 mg/dL (1.8-2.4); POTASSIUM - SERUM 3.5 mmol/L (3.5-5.1)
[2018-07-23 11:31] VITALS: BP 105/42
[2018-07-23] MEDS ORDERED: LASIX INJ40 MG/4 ML IV (13:58)
[2018-07-23] MEDS ORDERED: FERRLECIT62.5 MG/2 IVPB (14:00)
== END 2018-07-23 17:01 | DRG 314 ==
LOC: D.ER 22:50 → D.EDHOLD 07-07 01:49 → OBSVTIME 07-07 01:49 → D.EDHOLD 07-07 01:49 → D.M2 07-07 01:49 → D.SDCHOLD 07-10 04:26 → D.M2 07-23 17:01
PROVIDERS: Family Medicine; Family Medicine Adult Medicine; Internal Medicine Hematology & Oncology; Internal Medicine Nephrology
DX: T82.897A Other specified complication of cardiac prosthetic devices, implants and grafts, initial encounter (principal); I50.33 Acute on chronic diastolic (congestive) heart failure; I13.0 Hypertensive heart and chronic kidney disease with heart failure and stage 1 through stage 4 chronic kidney disease, or unspecified chronic kidney disease; E87.1 Hypo-osmolality and hyponatremia; N18.3 Chronic kidney disease, stage 3 (moderate); I48.91 Unspecified atrial fibrillation; E78.5 Hyperlipidemia, unspecified; I25.10 Atherosclerotic heart disease of native coronary artery without angina pectoris; I08.1 Rheumatic disorders of both mitral and tricuspid valves; N28.9 Disorder of kidney and ureter, unspecified; Z95.5 Presence of coronary angioplasty implant and graft; Z95.1 Presence of aortocoronary bypass graft; E87.6 Hypokalemia; D50.9 Iron deficiency anemia, unspecified; Y83.8 Other surgical procedures as the cause of abnormal reaction of the patient, or of later complication, without mention of misadventure at the time of the procedure; K21.9 Gastro-esophageal reflux disease without esophagitis; G72.89 Other specified myopathies

== ENCOUNTER 2018-07-23 18:00 | Inpatient (IN) | payer MEDICARE, OTHER ==
[~2018-07-23] VITALS: Ht 180.3 cm; Wt 80.8 kg
--- NOTE | ~2018-07-23 | RHP ---
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 HISTORY OF PRESENT ILLNESS: The patient is an 87-year-old gentleman admitted to inpatient rehab with CHF myopathy due to acute exacerbation of diastolic congestive heart failure. The patient returned to the ER with complaints of increasing shortness of breath since discharge on 07/06/2018. He states that his shortness of breath is worse when he lies flat or walks short distances. He does have a history of atrial fib as well as CHF. He has 1+ lower extremity edema as well as scrotal edema. He has edema to his lungs, diminished breath sounds and crackles bilaterally. He has a paced rhythm on the monitor. Chest x-ray showed interstitial prominences and trace pleural effusion. PAST MEDICAL HISTORY: Includes normocytic anemia, hypertension, coronary artery disease status post stenting, coronary artery bypass grafting and a cardiomyopathy. His last admission did have elevated troponin, but this was felt secondary to demand ischemia on his heart. He was admitted with CHF exacerbation and hyponatremia. Cardiology and nephrology were both consulted. Cardiac managing the heart and hyponatremia was watched closely. Previously before stent in May, he was independent with ADLs and mobility, worked in the garden, walked daily, currently he is mod to max assist for ADLs and mobility. He has dyspnea on exertion is on O2 at 3 liters. He has got a history of edema in his bilateral lower extremities and also his scrotum. He is on Lasix 80 mg IV q. 8 hours. He is on strict I's and O's and daily labs to monitor for worsening hyponatremia and renal functions. He has had prolonged immobility, progressive generalized weakness, especially in his lower extremities affecting his tolerance for physical therapy. He is very fatigued, has limited flexion, extension of his lower extremities. He has proximal muscle weakness. He is also mod to max assist for ADLs, mod to max assist for sit to stand and bed to chair. He has ambulated 100 feet with PT using a rolling walker, gait belt, O2 at 4 liters and 40% assist and PT requiring 3 rest stops for increased dyspnea and fatigue. Hopes to regain his strength and hopefully return home with his . He has got a very good family support system including his , his son and also his [id number]-fu-cvp. COMORBIDITIES: In this patient include essential hypertension, atrial fib, diastolic heart failure, pleural effusion, pulmonary edema, valvular heart disease. He has had aortic valve replacement in the past, chest pain, dyspnea, severe aortic insufficiency, aagzmoxk-zp-pjwlpe mitral and tricuspid regurg, cardiomyopathy, hyponatremia, hypokalemia, fatigue, weakness, elevated D-dimer, elevated platelet, scrotum, penis edema, hyperlipidemia, and gastroesophageal reflux disease. PAST MEDICAL HISTORY: Significant for coronary artery disease, aortic valve replacement, CHF, anemia, got a history of atrial fib, pneumonia. PAST SURGICAL HISTORY: Includes hernia repair, appendectomy, right shoulder repair, bovine heart valve replacement. HISTORY AND PHYSICAL [id number] TRIP HERNANDEZ ALLERGIES: QUININE. CURRENT MEDICATIONS: Include Flomax 0.4 mg daily. He is on potassium 10 mEq daily, Protonix 40 mg daily, Cardizem 180 mg daily, Plavix 75 mg daily, aspirin chewable 81 mg daily, Namenda 10 mg b.i.d., furosemide 80 mg q. 8 hours p.r.n., MiraLax 17 grams in 8 ounces of water daily. HABITS: No current alcohol or tobacco use. FAMILY HISTORY: Noncontributory. SOCIAL HISTORY: The patient hopes to return back home with his . REVIEW OF SYSTEMS: GENERAL: Does complain of weakness and fatigue. HEENT: Denies cold, cough, or congestion. CARDIOVASCULAR: He denies chest pain. PHYSICAL EXAMINATION: VITAL SIGNS: Stable, afebrile. GENERAL: Elderly gentleman in no acute distress, alert upon exam. HEENT: Normocephalic and atraumatic. Mucosa moist. NECK: Supple. No lymphadenopathy. LUNGS: Clear in upper james. HEART: Irregular rate and rhythm. He does have a noted murmur, which seems to be systolic and diastolic. ABDOMEN: Benign. EXTREMITIES: Does have noted peripheral edema. NEUROLOGIC: Does have noted weakness. LABORATORY DATA: White count 6.6, H&H of 10.1 and 30.9 and platelet count is 114. His sodium is 136, potassium 3.3, BUN and creatinine of 40 and 2.0, and blood sugar is noted to be 102. ASSESSMENT: This is an 87-year-old gentleman who was admitted to the rehab with a working diagnosis of congestive heart failure induced myopathy. The patient has potential to make improvement. We instituted the following multidisciplinary therapies including, but not limited to physical, occupational, respiratory, speech, nutritional services, prosthetics and orthotics. Given his complex medical condition and risk for more complications, rehabilitation services cannot be provided at a low level of care such as a skilled nurse facility. PLAN: 1. Admit to [facility] rehab for inpatient therapy to include the following disciplines: A. Physical therapy to improve gait, all transfer skills and bed mobility to a modified independent level. B. Occupational therapy to improve activities of daily living to a modified independent level. C. Case management to assist with discharge planning and placement options. D. Nutrition to assist with nutritional needs. HISTORY AND PHYSICAL [id number] TRIP HERNANDEZ. Rehabilitation nursing to assist in monitoring underlying medical conditions and to assist with any type of bowel or bladder management. 2. The patient's current medication and medical care will be continued. 3. The patient will be placed on standard fall precautions. 4. We will work on his therapy and hopefully get him back to where he is somewhat independent with his ADLs and hopefully get him up and walking with standby assist, so he can return home to his and we will follow up again on Thursday morning. TRANSINT:[id number] Voice Confirmation ID: [id number] DOCUMENT ID: [id number] MALICK notes whether there has been none or any medical/functional change since admission: - No change since prescreen. MALICK attests patient continues to be appropriate for IRF: - Continues to be appropriate. ALEXANDR DIAZ MD at 1809 CC: [id number] DICTATION DATE: 07/24/18 1240 PRIVATE CLIENT ADVISOR: 07/24/18 1348 ADM IN [facility] [address] [place] [address]
[~2018-07-23 18:00] MED LIST changes: +FERRLECIT62.5 MG/2 IVPB; +LASIX INJ40 MG/4 ML IV
[2018-07-23 22:01] VITALS: BP 122/48; BMI 23.6; BMI 25.0
[2018-07-24 05:41] LABS: BASOPHILS 0.5 % (0-2); EOSINOPHILS 1.8 % (0-7); HEMATOCRIT 30.9 % (42.0-54.0); HEMOGLOBIN 10.1 g/dL (13.5-17.5); IMMATURE GRANULOCYTES 0.2 % (0-5); LYMPHOCYTES 17.4 % (15-50); MCH 28.8 pg (26.0-34.0); MCHC 32.7 g/dL (31.0-37.0); MONOCYTES 10.4 % (2-11); NEUTROPHILS 69.7 % (40-80); PLATELET COUNT 114 10x3/uL (130-400); RBC 3.51 10x6/uL (4.20-6.10); RDW 14.4 % (11.5-14.5); WBC 6.6 10x3/uL (4.8-10.8)
[2018-07-24 05:46] LABS: CALCIUM 8.2 mg/dL (8.5-10.1); CARBON DIOXIDE 29.3 mmol/L (21.0-32.0); POTASSIUM - SERUM 3.3 mmol/L (3.5-5.1)
[2018-07-24 10:03] VITALS: Ht 180.3 cm; Wt 80.8 kg
[2018-07-24 10:19] VITALS: BP 112/48
[2018-07-24 19:40] VITALS: BP 111/45
[2018-07-25 09:45] VITALS: BP 92/41
[2018-07-25 19:30] VITALS: BP 100/42
[2018-07-26 05:26] LABS: BASOPHILS 0.6 % (0-2); EOSINOPHILS 1.7 % (0-7); HEMATOCRIT 30.6 % (42.0-54.0); HEMOGLOBIN 10.1 g/dL (13.5-17.5); IMMATURE GRANULOCYTES 0.2 % (0-5); LYMPHOCYTES 17.6 % (15-50); MCV 87.9 fL (80.0-100.0); MEAN PLATELET VOLUME 10.4 fL (7.4-10.4); NEUTROPHILS 67.9 % (40-80); PLATELET COUNT 114 10x3/uL (130-400); RBC 3.48 10x6/uL (4.20-6.10); RDW 14.7 % (11.5-14.5); WBC 5.2 10x3/uL (4.8-10.8)
[2018-07-26 05:48] LABS: ANION GAP 11.4 mmol/L (8-16); CALCIUM 8.2 mg/dL (8.5-10.1); CARBON DIOXIDE 28.9 mmol/L (21.0-32.0); CREATININE - SERUM 1.8 mg/dL (0.6-1.3); POTASSIUM - SERUM 3.3 mmol/L (3.5-5.1)
[2018-07-26 09:10] VITALS: BP 121/30
[2018-07-26 18:00] VITALS: BP 106/40
[2018-07-27 06:58] LABS: BASOPHILS 0.2 % (0-2); EOSINOPHILS 1.7 % (0-7); HEMATOCRIT 30.3 % (42.0-54.0); HEMOGLOBIN 10.1 g/dL (13.5-17.5); IMMATURE GRANULOCYTES 0.2 % (0-5); LYMPHOCYTES 17.2 % (15-50); MCH 29.3 pg (26.0-34.0); MCHC 33.3 g/dL (31.0-37.0); MCV 87.8 fL (80.0-100.0); MONOCYTES 10.5 % (2-11); NEUTROPHILS 70.2 % (40-80); PLATELET COUNT 122 10x3/uL (130-400); RBC 3.45 10x6/uL (4.20-6.10); RDW 14.7 % (11.5-14.5); WBC 5.7 10x3/uL (4.8-10.8)
[2018-07-27 07:07] LABS: ANION GAP 10.6 mmol/L (8-16); CALCIUM 8.3 mg/dL (8.5-10.1); CARBON DIOXIDE 29.7 mmol/L (21.0-32.0); POTASSIUM - SERUM 3.3 mmol/L (3.5-5.1)
[2018-07-27 07:47] VITALS: BP 110/35
[2018-07-27 19:00] VITALS: BP 129/47
[2018-07-28 07:49] VITALS: BP 124/56
[2018-07-28 19:00] VITALS: BP 118/51
[2018-07-29 06:31] LABS: ANION GAP 14.8 mmol/L (8-16); CALCIUM 8.3 mg/dL (8.5-10.1); CARBON DIOXIDE 26.2 mmol/L (21.0-32.0); CREATININE - SERUM 1.9 mg/dL (0.6-1.3)
[2018-07-29 06:32] LABS: BASOPHILS 0.1 % (0-2); HEMOGLOBIN 10.1 g/dL (13.5-17.5); IMMATURE GRANULOCYTES 0.1 % (0-5); LYMPHOCYTES 15.7 % (15-50); MCH 29.5 pg (26.0-34.0); MCHC 33.7 g/dL (31.0-37.0); MCV 87.7 fL (80.0-100.0); MONOCYTES 12.1 % (2-11); PLATELET COUNT 143 10x3/uL (130-400); RBC 3.42 10x6/uL (4.20-6.10); RDW 15.1 % (11.5-14.5); WBC 7.2 10x3/uL (4.8-10.8)
[2018-07-29 08:00] VITALS: BP 112/41
[2018-07-29 19:00] VITALS: BP 107/49
[2018-07-30 08:00] VITALS: BP 123/45
[2018-07-30 19:00] VITALS: BP 109/48
[2018-07-31 06:47] LABS: BASOPHILS 0.2 % (0-2); EOSINOPHILS 1.6 % (0-7); HEMATOCRIT 30.8 % (42.0-54.0); HEMOGLOBIN 10.2 g/dL (13.5-17.5); IMMATURE GRANULOCYTES 0.2 % (0-5); LYMPHOCYTES 15.5 % (15-50); MCH 29.6 pg (26.0-34.0); MCHC 33.1 g/dL (31.0-37.0); MCV 89.3 fL (80.0-100.0); MEAN PLATELET VOLUME 10.7 fL (7.4-10.4); MONOCYTES 12.1 % (2-11); NEUTROPHILS 70.4 % (40-80); PLATELET COUNT 134 10x3/uL (130-400); RBC 3.45 10x6/uL (4.20-6.10); RDW 15.5 % (11.5-14.5); WBC 5.8 10x3/uL (4.8-10.8)
[2018-07-31 07:06] LABS: ANION GAP 11.8 mmol/L (8-16); CALCIUM 8.3 mg/dL (8.5-10.1); CARBON DIOXIDE 26.2 mmol/L (21.0-32.0); CREATININE - SERUM 1.7 mg/dL (0.6-1.3)
[2018-07-31 07:25] VITALS: BP 103/50
[2018-08-01 07:10] VITALS: BP 120/94
[2018-08-01 19:21] VITALS: BP 110/62
[2018-08-02 07:51] VITALS: BP 115/48
[2018-08-02 19:06] VITALS: BP 138/38
[2018-08-03 07:45] VITALS: BP 122/52
[2018-08-03 19:00] VITALS: BP 109/33
[2018-08-04 07:07] LABS: BASOPHILS 0.2 % (0-2); EOSINOPHILS 1.1 % (0-7); HEMATOCRIT 31.8 % (42.0-54.0); HEMOGLOBIN 10.5 g/dL (13.5-17.5); IMMATURE GRANULOCYTES 0.3 % (0-5); LYMPHOCYTES 15.1 % (15-50); MCH 29.2 pg (26.0-34.0); MCV 88.6 fL (80.0-100.0); MEAN PLATELET VOLUME 11.1 fL (7.4-10.4); MONOCYTES 14.6 % (2-11); NEUTROPHILS 68.7 % (40-80); PLATELET COUNT 139 10x3/uL (130-400); RBC 3.59 10x6/uL (4.20-6.10); RDW 15.2 % (11.5-14.5); WBC 6.4 10x3/uL (4.8-10.8)
[2018-08-04 07:18] LABS: ANION GAP 11.8 mmol/L (8-16); CALCIUM 8.4 mg/dL (8.5-10.1); CARBON DIOXIDE 26.5 mmol/L (21.0-32.0); CREATININE - SERUM 1.7 mg/dL (0.6-1.3); POTASSIUM - SERUM 4.3 mmol/L (3.5-5.1)
[2018-08-04 07:51] VITALS: BP 112/41
[2018-08-04 20:59] VITALS: BP 122/39
[2018-08-05 08:24] VITALS: BP 132/46
[2018-08-05 19:00] VITALS: BP 124/42
[2018-08-06 07:12] LABS: HEMOGLOBIN 10.5 g/dL (13.5-17.5); LYMPHOCYTES 12.6 % (15-50); MCH 30.3 pg (26.0-34.0); MCV 86.7 fL (80.0-100.0); MEAN PLATELET VOLUME 10.7 fL (7.4-10.4); NEUTROPHILS 74.4 % (40-80); PLATELET COUNT 139 10x3/uL (130-400); RBC 3.46 10x6/uL (4.20-6.10); WBC 6.4 10x3/uL (4.8-10.8)
[2018-08-06 07:20] LABS: ANION GAP 11.8 mmol/L (8-16); CALCIUM 8.5 mg/dL (8.5-10.1); CARBON DIOXIDE 25.2 mmol/L (21.0-32.0); CREATININE - SERUM 1.7 mg/dL (0.6-1.3)
[2018-08-06 08:00] VITALS: BP 148/54
[2018-08-06 19:00] VITALS: BP 121/45
[2018-08-07 06:19] LABS: BASOPHILS 0.4 % (0-2); EOSINOPHILS 0.7 % (0-7); HEMOGLOBIN 10.3 g/dL (13.5-17.5); IMMATURE GRANULOCYTES 0.3 % (0-5); LYMPHOCYTES 13.7 % (15-50); MCH 29.1 pg (26.0-34.0); MCHC 33.2 g/dL (31.0-37.0); MCV 87.6 fL (80.0-100.0); MEAN PLATELET VOLUME 10.8 fL (7.4-10.4); MONOCYTES 12.3 % (2-11); NEUTROPHILS 72.6 % (40-80); PLATELET COUNT 134 10x3/uL (130-400); RBC 3.54 10x6/uL (4.20-6.10)
[2018-08-07 06:51] LABS: ANION GAP 12.6 mmol/L (8-16); CALCIUM 8.5 mg/dL (8.5-10.1); CARBON DIOXIDE 27.8 mmol/L (21.0-32.0); CREATININE - SERUM 1.7 mg/dL (0.6-1.3); POTASSIUM - SERUM 3.4 mmol/L (3.5-5.1)
[2018-08-07 20:05] VITALS: BP 98/55
[2018-08-08 07:30] LABS: BASOPHILS 0.2 % (0-2); EOSINOPHILS 1.4 % (0-7); HEMATOCRIT 30.9 % (42.0-54.0); HEMOGLOBIN 10.4 g/dL (13.5-17.5); IMMATURE GRANULOCYTES 0.2 % (0-5); LYMPHOCYTES 15.6 % (15-50); MCH 29.3 pg (26.0-34.0); MCHC 33.7 g/dL (31.0-37.0); MEAN PLATELET VOLUME 10.7 fL (7.4-10.4); MONOCYTES 9.5 % (2-11); NEUTROPHILS 73.1 % (40-80); PLATELET COUNT 132 10x3/uL (130-400); RBC 3.55 10x6/uL (4.20-6.10); RDW 14.8 % (11.5-14.5); WBC 6.4 10x3/uL (4.8-10.8)
[2018-08-08 07:48] LABS: ANION GAP 14.2 mmol/L (8-16); CALCIUM 8.4 mg/dL (8.5-10.1); CARBON DIOXIDE 27.9 mmol/L (21.0-32.0); CREATININE - SERUM 1.7 mg/dL (0.6-1.3); POTASSIUM - SERUM 3.1 mmol/L (3.5-5.1)
[2018-08-08 09:00] VITALS: BP 110/44
[2018-08-08 15:48] VITALS: BP 105/89
[2018-08-08 20:00] VITALS: BP 102/57
[2018-08-09 07:48] VITALS: BP 113/43
[2018-08-09 07:51] VITALS: BP 151/63
[2018-08-09 19:00] VITALS: BP 89/36
[2018-08-10 07:00] LABS: BASOPHILS 0.2 % (0-2); EOSINOPHILS 0.8 % (0-7); HEMATOCRIT 31.3 % (42.0-54.0); HEMOGLOBIN 10.9 g/dL (13.5-17.5); IMMATURE GRANULOCYTES 0.2 % (0-5); LYMPHOCYTES 13.4 % (15-50); MCH 29.4 pg (26.0-34.0); MCHC 34.8 g/dL (31.0-37.0); MEAN PLATELET VOLUME 10.3 fL (7.4-10.4); MONOCYTES 9.1 % (2-11); NEUTROPHILS 76.3 % (40-80); PLATELET COUNT 115 10x3/uL (130-400); RBC 3.71 10x6/uL (4.20-6.10); RDW 14.3 % (11.5-14.5); WBC 6.3 10x3/uL (4.8-10.8)
[2018-08-10 07:03] LABS: MCV 84.4 fL (80.0-100.0)
[2018-08-10 07:33] LABS: ANION GAP 11.8 mmol/L (8-16); CALCIUM 8.7 mg/dL (8.5-10.1); CARBON DIOXIDE 30.9 mmol/L (21.0-32.0); CREATININE - SERUM 1.9 mg/dL (0.6-1.3)
[2018-08-10 07:47] LABS: POTASSIUM - SERUM 2.7 mmol/L (3.5-5.1)
[2018-08-10 08:57] VITALS: BP 110/40
== END 2018-08-10 15:22 | disposition short-term general hospital (02) | DRG 91 ==
LOC: D.REHAB 18:00
PROVIDERS: Emergency Medicine
DX: G72.9 Myopathy, unspecified (principal); I50.33 Acute on chronic diastolic (congestive) heart failure; J81.1 Chronic pulmonary edema; E87.1 Hypo-osmolality and hyponatremia; I42.9 Cardiomyopathy, unspecified; I11.0 Hypertensive heart disease with heart failure; I48.91 Unspecified atrial fibrillation; K21.9 Gastro-esophageal reflux disease without esophagitis; E78.5 Hyperlipidemia, unspecified; N48.89 Other specified disorders of penis; R53.83 Other fatigue; R53.1 Weakness; E87.6 Hypokalemia; I07.1 Rheumatic tricuspid insufficiency; I34.0 Nonrheumatic mitral (valve) insufficiency; Z95.2 Presence of prosthetic heart valve; R07.9 Chest pain, unspecified; R06.00 Dyspnea, unspecified; I35.1 Nonrheumatic aortic (valve) insufficiency

== ENCOUNTER 2018-08-10 12:46 | Inpatient (IN) | payer MEDICARE, OTHER ==
[~2018-08-10] VITALS: Ht 180.3 cm; Wt 81.2 kg
[2018-08-10 15:36] VITALS: BP 127/39; BMI 25.0
[2018-08-10 15:52] VITALS: BP 127/39
[2018-08-10 20:00] VITALS: BP 130/34
[2018-08-11 04:00] VITALS: BP 100/42
[2018-08-11 06:41] LABS: BASOPHILS 0.2 % (0-2); HEMATOCRIT 29.6 % (42.0-54.0); HEMOGLOBIN 10.2 g/dL (13.5-17.5); IMMATURE GRANULOCYTES 0.2 % (0-5); LYMPHOCYTES 13.3 % (15-50); MCH 29.2 pg (26.0-34.0); MCHC 34.5 g/dL (31.0-37.0); MCV 84.8 fL (80.0-100.0); MEAN PLATELET VOLUME 10.7 fL (7.4-10.4); MONOCYTES 11.9 % (2-11); NEUTROPHILS 73.4 % (40-80); PLATELET COUNT 107 10x3/uL (130-400); RBC 3.49 10x6/uL (4.20-6.10); RDW 14.4 % (11.5-14.5); WBC 5.8 10x3/uL (4.8-10.8)
[2018-08-11 06:52] LABS: ALBUMIN 3.2 g/dL (3.4-5.0); ANION GAP 11.5 mmol/L (8-16); BILIRUBIN - TOTAL 0.4 mg/dL (0.2-1.3); CALCIUM 8.5 mg/dL (8.5-10.1); CARBON DIOXIDE 30.4 mmol/L (21.0-32.0); CREATININE - SERUM 1.9 mg/dL (0.6-1.3); PROTEIN - SERUM 6.3 g/dL (6.4-8.2)
[2018-08-11 07:24] LABS: POTASSIUM - SERUM 2.9 mmol/L (3.5-5.1)
[2018-08-11 07:55] VITALS: BP 116/44
[2018-08-11 10:15] VITALS: BMI 24.9
[2018-08-11 11:28] VITALS: BP 100/39
[2018-08-11 12:32] VITALS: Ht 180.3 cm; Wt 81.2 kg
[2018-08-11 15:30] VITALS: BP 98/27
[2018-08-11 20:38] VITALS: BP 114/40
[2018-08-12 04:00] VITALS: BP 99/36
[2018-08-12 05:06] LABS: BASOPHILS 0.2 % (0-2); EOSINOPHILS 0.9 % (0-7); HEMATOCRIT 32.2 % (42.0-54.0); HEMOGLOBIN 11.1 g/dL (13.5-17.5); IMMATURE GRANULOCYTES 0.2 % (0-5); LYMPHOCYTES 13.3 % (15-50); MCH 29.4 pg (26.0-34.0); MCHC 34.5 g/dL (31.0-37.0); MCV 85.4 fL (80.0-100.0); MEAN PLATELET VOLUME 10.9 fL (7.4-10.4); NEUTROPHILS 74.4 % (40-80); PLATELET COUNT 109 10x3/uL (130-400); RBC 3.77 10x6/uL (4.20-6.10); RDW 14.5 % (11.5-14.5); WBC 6.5 10x3/uL (4.8-10.8)
[2018-08-12 05:28] LABS: ANION GAP 11.2 mmol/L (8-16); CALCIUM 8.7 mg/dL (8.5-10.1); CARBON DIOXIDE 32.9 mmol/L (21.0-32.0); CREATININE - SERUM 2.2 mg/dL (0.6-1.3)
[2018-08-12 05:42] LABS: POTASSIUM - SERUM 3.1 mmol/L (3.5-5.1)
[2018-08-12 06:00] VITALS: BP 101/37
[2018-08-12 17:42] VITALS: BP 120/88
[2018-08-12 20:00] VITALS: BP 100/41
[2018-08-13] VITALS: BP 111/50
[2018-08-13 04:00] VITALS: BP 100/34
[2018-08-13 06:16] LABS: BASOPHILS 0.2 % (0-2); EOSINOPHILS 1.5 % (0-7); HEMATOCRIT 32.7 % (42.0-54.0); HEMOGLOBIN 11.2 g/dL (13.5-17.5); IMMATURE GRANULOCYTES 0.2 % (0-5); LYMPHOCYTES 18.5 % (15-50); MCH 29.2 pg (26.0-34.0); MCHC 34.3 g/dL (31.0-37.0); MCV 85.4 fL (80.0-100.0); MEAN PLATELET VOLUME 10.4 fL (7.4-10.4); MONOCYTES 12.5 % (2-11); NEUTROPHILS 67.1 % (40-80); PLATELET COUNT 107 10x3/uL (130-400); RBC 3.83 10x6/uL (4.20-6.10); RDW 14.5 % (11.5-14.5); WBC 5.5 10x3/uL (4.8-10.8)
[2018-08-13 06:28] LABS: ANION GAP 11.3 mmol/L (8-16); CALCIUM 8.8 mg/dL (8.5-10.1); CARBON DIOXIDE 32.8 mmol/L (21.0-32.0)
[2018-08-13 06:47] LABS: POTASSIUM - SERUM 3.1 mmol/L (3.5-5.1)
[2018-08-13 07:40] VITALS: BP 102/48
[2018-08-13 12:36] VITALS: BP 101/39
[2018-08-13 16:02] VITALS: BP 91/36
[2018-08-13 20:00] VITALS: BP 86/44
[2018-08-14 04:00] VITALS: BP 111/33
[2018-08-14 06:54] LABS: BASOPHILS 0.3 % (0-2); EOSINOPHILS 1.2 % (0-7); HEMATOCRIT 32.5 % (42.0-54.0); HEMOGLOBIN 11.2 g/dL (13.5-17.5); IMMATURE GRANULOCYTES 0.2 % (0-5); LYMPHOCYTES 15.9 % (15-50); MCH 29.5 pg (26.0-34.0); MCHC 34.5 g/dL (31.0-37.0); MCV 85.5 fL (80.0-100.0); MEAN PLATELET VOLUME 10.6 fL (7.4-10.4); MONOCYTES 11.6 % (2-11); NEUTROPHILS 70.8 % (40-80); PLATELET COUNT 104 10x3/uL (130-400); RDW 14.4 % (11.5-14.5)
[2018-08-14 07:00] LABS: ANION GAP 12.8 mmol/L (8-16); CALCIUM 8.8 mg/dL (8.5-10.1); CARBON DIOXIDE 33.1 mmol/L (21.0-32.0)
[2018-08-14 07:03] LABS: POTASSIUM - SERUM 2.9 mmol/L (3.5-5.1)
[2018-08-14 09:28] VITALS: BP 106/47
[2018-08-14 12:58] VITALS: BP 98/38
[2018-08-14 20:00] VITALS: BP 105/44
[2018-08-15 04:00] VITALS: BP 104/43
[2018-08-15 06:59] LABS: BASOPHILS 0.3 % (0-2); EOSINOPHILS 1.4 % (0-7); HEMATOCRIT 33.7 % (42.0-54.0); HEMOGLOBIN 11.6 g/dL (13.5-17.5); IMMATURE GRANULOCYTES 0.3 % (0-5); LYMPHOCYTES 13.1 % (15-50); MCH 29.6 pg (26.0-34.0); MCHC 34.4 g/dL (31.0-37.0); MONOCYTES 11.9 % (2-11); PLATELET COUNT 105 10x3/uL (130-400); RBC 3.92 10x6/uL (4.20-6.10); RDW 14.4 % (11.5-14.5); WBC 6.5 10x3/uL (4.8-10.8)
[2018-08-15 07:08] LABS: ANION GAP 13.7 mmol/L (8-16); CALCIUM 8.9 mg/dL (8.5-10.1); CARBON DIOXIDE 31.8 mmol/L (21.0-32.0); POTASSIUM - SERUM 3.5 mmol/L (3.5-5.1)
[2018-08-15 11:37] VITALS: BP 104/33
[2018-08-15 16:02] VITALS: BP 98/31
[2018-08-15 20:30] VITALS: BP 97/50
[2018-08-16 04:30] VITALS: BP 96/42
[2018-08-16 07:45] LABS: BASOPHILS 0.2 % (0-2); EOSINOPHILS 1.9 % (0-7); HEMATOCRIT 33.8 % (42.0-54.0); HEMOGLOBIN 11.2 g/dL (13.5-17.5); IMMATURE GRANULOCYTES 0.2 % (0-5); LYMPHOCYTES 17.1 % (15-50); MCH 28.9 pg (26.0-34.0); MCHC 33.1 g/dL (31.0-37.0); MCV 87.3 fL (80.0-100.0); MEAN PLATELET VOLUME 10.9 fL (7.4-10.4); MONOCYTES 13.2 % (2-11); NEUTROPHILS 67.4 % (40-80); PLATELET COUNT 94 10x3/uL (130-400); RBC 3.87 10x6/uL (4.20-6.10); RDW 14.3 % (11.5-14.5); WBC 6.4 10x3/uL (4.8-10.8)
[2018-08-16 07:53] LABS: ANION GAP 12.4 mmol/L (8-16); CALCIUM 8.7 mg/dL (8.5-10.1); CARBON DIOXIDE 33.5 mmol/L (21.0-32.0); POTASSIUM - SERUM 3.9 mmol/L (3.5-5.1)
[2018-08-16 08:19] LABS: PLATELET ESTIMATE DECREASED
[2018-08-16 08:20] LABS: PLATELET MORPHOLOGY NORMAL PLT MORPH
[2018-08-16 08:58] VITALS: BP 121/39
[2018-08-16 12:02] VITALS: BP 97/40
[2018-08-16] MEDS ORDERED: LOPRESSOR25 MG PO (12:04)
[2018-08-16] MEDS ORDERED: K-DUR20 MEQ PO (12:05)
[2018-08-16] MEDS ORDERED: LASIX40 MG PO (12:05)
== END 2018-08-16 15:55 | DRG 291 ==
LOC: D.M2 12:46
PROVIDERS: Emergency Medicine; Internal Medicine Nephrology
DX: I13.0 Hypertensive heart and chronic kidney disease with heart failure and stage 1 through stage 4 chronic kidney disease, or unspecified chronic kidney disease (principal); I50.33 Acute on chronic diastolic (congestive) heart failure; E87.1 Hypo-osmolality and hyponatremia; N18.9 Chronic kidney disease, unspecified; I08.0 Rheumatic disorders of both mitral and aortic valves; E78.5 Hyperlipidemia, unspecified; I48.91 Unspecified atrial fibrillation; D64.9 Anemia, unspecified; I25.10 Atherosclerotic heart disease of native coronary artery without angina pectoris; D69.6 Thrombocytopenia, unspecified; K21.9 Gastro-esophageal reflux disease without esophagitis

== ENCOUNTER 2018-08-30 20:10 | Inpatient (IN) | payer MEDICARE, OTHER ==
[~2018-08-30] VITALS: Ht 180.3 cm; Wt 80.0 kg
--- NOTE | ~2018-08-30 | MORECARE ---
CASE MANAGEMENT DISCHARGE SUMMARY PATIENT: TRIP HERNANDEZ UNIT: [id number] ADM DATE: 08/31/18 AGE: 88 : 31 SEX: M ROOM/BED: D.2211 AUTHOR: BELÉN MOORE PHYSICIAN: REFERRING PHYSICIAN: MANDY BELL MD DATE OF SERVICE: 09/13/18 Discharge Plan Patient Name: TRIP HERNANDEZ Facility: [facility]:[place] : 1930 Planned Disposition: Long Term Facility Anticipated Discharge Date: Discharge Date: 09/06/2018 Expected LOS: Initial Reviewer: [id number] Initial Review Date: 08/31/2018 Generated: 09/13/18 2:42 pm Comments DCP- Discharge Planning Updated by [email or web address]: Melvina Rowe on 09/06/18 10:[address] PATIENT WILL BE DISCHARGING BACK TO [facility] TO A SKILLED BED. [facility] WILL BE THE ONE TO PICK HIM UP TODAY. CM WILL CONTINUE TO FOLLOW AND ASSIST WITH DC PLANNING NEEDED DCP- Discharge Planning Updated by [email or web address]: Melvina Rowe on 09/06/18 9:[address] IMM SERVED AND EXPLAINED. DCP- Discharge Planning Updated by [email or web address]: Melvina Rowe on 09/01/18 11:[address] Patient Name: TRIP HERNANDEZ Admission Status: ER Accout number: [id number] Admission Date: 08-31-2018 : 1930 Admission Diagnosis:PNEUMONIA, UNSPECIFIED ORGANISM Attending: ARABELLA, Current LOS: 1 Anticipated DC Date: Planned Disposition: Long Term Facility Primary Insurance: MEDICARE A & B Discharge Planning Comments: CM met with patient and to assess discharge planning needs. Patient was readmitted from [facility] where he plans to return at discharge. Prior to [facility] he was independent at his home with his . He does not use and DME or community resources. There are not steps or stairs in his home. Patient plans to DC to [facility] to complete his rehab. CM will continue to follow and assist with DC planning Meteorology Professor: Melvina Rowe DCPIA - Discharge Planning Initial Assessment Updated by [email or web address]: Melvina Rowe on 09/01/18 12:38 pm * Is the patient Alert and Oriented? Yes * How many steps to enter\exit or inside your home? * PCP KERRI * [facility] [address] * Preadmission Environment Long Term Facility * [facility] * ADLs Independent * Equipment None * List name and contact numbers for known caregivers / representatives who currently or will assist patient after discharge: TERRENCE () [phone] * Verbal permission to speak to the caregivers and representatives has been obtained from the patient. Yes * Community resources currently utilized None * Additional services required to return to the preadmission environment? No * Can the patient safely return to the preadmission environment? Yes * Has this patient been hospitalized within the prior 30 days at any hospital? Yes Coverage Notice Reviewer: [id number] - Melvina Rowe Notice Issued Date-Time: 09/06/2018 10:45 Notice Type: IM Discharge Notice Notice Delivered To: Patient Relationship to Patient: Marine Electrician Apprentice Name: Delivery Method: HAND - Hand Delivered Bianca Days: Prior Verbal Notification: Recipient Understood Notice: Yes Recipient Signature: Yes Med Rec Note Co-signed by Attending: Coverage Notice Comment: Last DP export: 09/07/18 8:13 a Patient Name: TRIP HERNANDEZ Page [phone] at 1342 All edits/amendments must be made on the electronic document DICTATION DATE: 09/13/18 1341 RESIDENTIAL GAS HEAT TECHNICIAN: CLAUDIA 09/13/18 1341 RPT#: [id number] DC DATE:09/06/18 STATUS: DIS IN [facility] [address] [place] [address] END OF REPORT
[~2018-08-30 20:10] MED LIST changes: +K-DUR20 MEQ PO; +LASIX40 MG PO; +LOPRESSOR25 MG PO
[2018-08-30 20:18] VITALS: BP 125/46
[2018-08-30] MEDS ORDERED: ALDACTONE25 MG PO (20:24)
[2018-08-30] MEDS ORDERED: RANITIDINE HCL150 M1 PO (20:25)
[2018-08-30 21:31] VITALS: BP 120/48
[2018-08-30 21:31] LABS: BASOPHILS 0.2 % (0-2); EOSINOPHILS 1.4 % (0-7); HEMATOCRIT 35.2 % (42.0-54.0); HEMOGLOBIN 11.5 g/dL (13.5-17.5); IMMATURE GRANULOCYTES 0.1 % (0-5); LYMPHOCYTES 17.9 % (15-50); MCH 29.6 pg (26.0-34.0); MCHC 32.7 g/dL (31.0-37.0); MCV 90.5 fL (80.0-100.0); MEAN PLATELET VOLUME 10.8 fL (7.4-10.4); NEUTROPHILS 70.4 % (40-80); PLATELET COUNT 88 10x3/uL (130-400); RBC 3.89 10x6/uL (4.20-6.10); RDW 16.1 % (11.5-14.5); WBC 8.5 10x3/uL (4.8-10.8)
[2018-08-30 21:48] LABS: ALBUMIN 3.5 g/dL (3.4-5.0); ALKALINE PHOSPHATASE 74 U/L (46-116); ALT (SGPT) 31 U/L (10-68); BILIRUBIN - TOTAL 0.28 mg/dL (0.2-1.3); CALC OSMOLALITY 285 mosm/kg (275-300); CALCIUM 8.7 mg/dL (8.5-10.1); CARBON DIOXIDE 24.6 mmol/L (21.0-32.0); CHLORIDE - SERUM 104 mmol/L (98-107); CREATININE - SERUM 1.8 mg/dL (0.6-1.3); GLUCOSE 137 mg/dL (74-106); PROTEIN - SERUM 6.8 g/dL (6.4-8.2); SODIUM 140 mmol/L (136-145); UREA NITROGEN 26 mg/dL (7-18); eGFR NON AFRICAN AMERICAN 38 mL/min (90-120)
[2018-08-30 22:04] LABS: AMYLASE - SERUM 35 U/L (25-115); CKMB 1.2 U/L (0.0-3.6); CREATINE KINASE 66 UL (21-232); LIPASE 171 U/L (73-393); PRO BNP 5700 pg/mL (0-450); TROPONIN-I 0.033 ng/mL (0.000-0.060)
[2018-08-30 22:28] VITALS: BP 128/49
[2018-08-30 23:22] LABS: APPEARANCE CLEAR (CLEAR); BILIRUBIN NEGATIVE (NEGATIVE); COLOR YELLOW (YELLOW); GLUCOSE NEGATIVE (NEGATIVE); KETONE NEGATIVE (NEGATIVE); NITRITE NEGATIVE (NEGATIVE); PROTEIN NEGATIVE (NEGATIVE); UROBILINOGEN NORMAL (NORMAL)
[2018-08-30 23:31] VITALS: BP 113/45
[2018-08-31] VITALS (7 sets, daily range): BP systolic 100–123; BP diastolic 38–54
[2018-08-31 06:30] LABS: BASOPHILS 0.2 % (0-2); HEMATOCRIT 33.6 % (42.0-54.0); IMMATURE GRANULOCYTES 0.6 % (0-5); LYMPHOCYTES 19.6 % (15-50); MCH 29.3 pg (26.0-34.0); MCHC 32.7 g/dL (31.0-37.0); MCV 89.6 fL (80.0-100.0); MEAN PLATELET VOLUME 10.6 fL (7.4-10.4); MONOCYTES 9.4 % (2-11); NEUTROPHILS 68.2 % (40-80); PLATELET COUNT 78 10x3/uL (130-400); RBC 3.75 10x6/uL (4.20-6.10); WBC 6.6 10x3/uL (4.8-10.8)
[2018-08-31 07:04] LABS: ALBUMIN 3.1 g/dL (3.4-5.0); ALKALINE PHOSPHATASE 68 U/L (46-116); ALT (SGPT) 27 U/L (10-68); BILIRUBIN - TOTAL 0.41 mg/dL (0.2-1.3); CALC OSMOLALITY 281 mosm/kg (275-300); CALCIUM 8.2 mg/dL (8.5-10.1); CARBON DIOXIDE 24.8 mmol/L (21.0-32.0); CHLORIDE - SERUM 106 mmol/L (98-107); CKMB 1.4 U/L (0.0-3.6); CREATINE KINASE 37 UL (21-232); CREATININE - SERUM 1.7 mg/dL (0.6-1.3); GLUCOSE 101 mg/dL (74-106); PRO BNP 5546 pg/mL (0-450); PROTEIN - SERUM 6.2 g/dL (6.4-8.2); SODIUM 139 mmol/L (136-145); TROPONIN-I 0.034 ng/mL (0.000-0.060); UREA NITROGEN 25 mg/dL (7-18); eGFR NON AFRICAN AMERICAN 41 mL/min (90-120)
[2018-09-01 05:28] VITALS: BP 100/46
[2018-09-01 05:58] LABS: BASOPHILS 0.1 % (0-2); EOSINOPHILS 1.7 % (0-7); HEMATOCRIT 35.2 % (42.0-54.0); HEMOGLOBIN 11.5 g/dL (13.5-17.5); IMMATURE GRANULOCYTES 0.3 % (0-5); LYMPHOCYTES 18.1 % (15-50); MCHC 32.7 g/dL (31.0-37.0); MCV 88.7 fL (80.0-100.0); MEAN PLATELET VOLUME 11.2 fL (7.4-10.4); MONOCYTES 9.2 % (2-11); NEUTROPHILS 70.6 % (40-80); PLATELET COUNT 88 10x3/uL (130-400); RBC 3.97 10x6/uL (4.20-6.10); RDW 15.9 % (11.5-14.5); WBC 7.1 10x3/uL (4.8-10.8)
[2018-09-01 06:22] LABS: ALBUMIN 3.3 g/dL (3.4-5.0); ANION GAP 14.2 mmol/L (8-16); BILIRUBIN - TOTAL 0.6 mg/dL (0.2-1.3); CALCIUM 8.7 mg/dL (8.5-10.1); CARBON DIOXIDE 25.5 mmol/L (21.0-32.0); CREATININE - SERUM 1.9 mg/dL (0.6-1.3); POTASSIUM - SERUM 3.7 mmol/L (3.5-5.1); PROTEIN - SERUM 6.7 g/dL (6.4-8.2)
[2018-09-01 09:44] VITALS: BP 113/36
[2018-09-01 17:42] VITALS: BP 94/55
[2018-09-01 20:56] VITALS: BP 140/52
[2018-09-02 05:35] VITALS: BP 117/45
[2018-09-02 06:33] LABS: BASOPHILS 0.2 % (0-2); EOSINOPHILS 0.3 % (0-7); HEMATOCRIT 33.8 % (42.0-54.0); HEMOGLOBIN 11.2 g/dL (13.5-17.5); IMMATURE GRANULOCYTES 0.2 % (0-5); MCH 29.2 pg (26.0-34.0); MCHC 33.1 g/dL (31.0-37.0); MEAN PLATELET VOLUME 10.5 fL (7.4-10.4); MONOCYTES 9.8 % (2-11); NEUTROPHILS 76.5 % (40-80); PLATELET COUNT 84 10x3/uL (130-400); RBC 3.84 10x6/uL (4.20-6.10); RDW 15.9 % (11.5-14.5); WBC 6.5 10x3/uL (4.8-10.8)
[2018-09-02 06:54] LABS: ALBUMIN 3.3 g/dL (3.4-5.0); BILIRUBIN - TOTAL 0.41 mg/dL (0.2-1.3); CALCIUM 8.8 mg/dL (8.5-10.1); CARBON DIOXIDE 25.7 mmol/L (21.0-32.0); CREATININE - SERUM 1.8 mg/dL (0.6-1.3); PROTEIN - SERUM 6.7 g/dL (6.4-8.2)
[2018-09-02 06:56] LABS: ANION GAP 14.9 mmol/L (8-16); POTASSIUM - SERUM 4.6 mmol/L (3.5-5.1)
[2018-09-02 09:33] VITALS: BP 121/47
[2018-09-02 14:13] VITALS: BP 121/47; Ht 180.3 cm; Wt 80.0 kg
[2018-09-02 14:17] VITALS: BP 103/43
[2018-09-02 15:00] VITALS: BP 118/48
[2018-09-02 20:00] VITALS: BP 115/49
[2018-09-03 04:00] VITALS: BP 127/76
[2018-09-03 05:27] LABS: BASOPHILS 0.1 % (0-2); EOSINOPHILS 0.8 % (0-7); HEMATOCRIT 31.8 % (42.0-54.0); HEMOGLOBIN 10.7 g/dL (13.5-17.5); IMMATURE GRANULOCYTES 0.1 % (0-5); LYMPHOCYTES 17.7 % (15-50); MCH 29.7 pg (26.0-34.0); MCHC 33.6 g/dL (31.0-37.0); MCV 88.3 fL (80.0-100.0); MEAN PLATELET VOLUME 10.3 fL (7.4-10.4); MONOCYTES 9.5 % (2-11); NEUTROPHILS 71.8 % (40-80); PLATELET COUNT 76 10x3/uL (130-400); WBC 7.3 10x3/uL (4.8-10.8)
[2018-09-03 05:54] LABS: ALBUMIN 3.3 g/dL (3.4-5.0); ANION GAP 7.6 mmol/L (8-16); BILIRUBIN - TOTAL 0.42 mg/dL (0.2-1.3); CALCIUM 8.7 mg/dL (8.5-10.1); CARBON DIOXIDE 28.4 mmol/L (21.0-32.0); PROTEIN - SERUM 6.5 g/dL (6.4-8.2)
[2018-09-03 09:32] VITALS: BP 106/47
[2018-09-03 13:30] VITALS: BP 100/42
[2018-09-03 16:33] VITALS: BP 102/44
[2018-09-03 19:49] VITALS: BP 102/50
[2018-09-04] VITALS: BP 115/59
[2018-09-04 04:00] VITALS: BP 109/42
[2018-09-04 05:17] LABS: BASOPHILS 0.1 % (0-2); EOSINOPHILS 1.2 % (0-7); HEMATOCRIT 31.5 % (42.0-54.0); HEMOGLOBIN 10.3 g/dL (13.5-17.5); IMMATURE GRANULOCYTES 0.3 % (0-5); LYMPHOCYTES 18.4 % (15-50); MCH 28.9 pg (26.0-34.0); MCHC 32.7 g/dL (31.0-37.0); MCV 88.2 fL (80.0-100.0); MEAN PLATELET VOLUME 10.2 fL (7.4-10.4); MONOCYTES 11.1 % (2-11); NEUTROPHILS 68.9 % (40-80); PLATELET COUNT 74 10x3/uL (130-400); RBC 3.57 10x6/uL (4.20-6.10); RDW 15.9 % (11.5-14.5); WBC 6.9 10x3/uL (4.8-10.8)
[2018-09-04 06:05] LABS: ALBUMIN 3.2 g/dL (3.4-5.0); ANION GAP 11.5 mmol/L (8-16); BILIRUBIN - TOTAL 0.5 mg/dL (0.2-1.3); CALCIUM 8.6 mg/dL (8.5-10.1); CARBON DIOXIDE 24.4 mmol/L (21.0-32.0); CREATININE - SERUM 2.1 mg/dL (0.6-1.3); POTASSIUM - SERUM 3.9 mmol/L (3.5-5.1); PROTEIN - SERUM 6.4 g/dL (6.4-8.2)
[2018-09-04 07:00] VITALS: BP 99/46
[2018-09-04 13:22] VITALS: BP 118/62
[2018-09-04 15:46] VITALS: BP 128/78
[2018-09-04 19:58] VITALS: BP 106/49
[2018-09-05] VITALS: BP 102/39
[2018-09-05 04:00] VITALS: BP 117/42
[2018-09-05 05:27] LABS: BASOPHILS 0.3 % (0-2); EOSINOPHILS 1.5 % (0-7); HEMATOCRIT 32.1 % (42.0-54.0); HEMOGLOBIN 10.7 g/dL (13.5-17.5); IMMATURE GRANULOCYTES 0.2 % (0-5); LYMPHOCYTES 21.9 % (15-50); MCH 29.3 pg (26.0-34.0); MCHC 33.3 g/dL (31.0-37.0); MCV 87.9 fL (80.0-100.0); MEAN PLATELET VOLUME 10.7 fL (7.4-10.4); MONOCYTES 9.7 % (2-11); NEUTROPHILS 66.4 % (40-80); PLATELET COUNT 74 10x3/uL (130-400); RBC 3.65 10x6/uL (4.20-6.10); RDW 15.9 % (11.5-14.5)
[2018-09-05 06:14] LABS: ALBUMIN 3.4 g/dL (3.4-5.0); BILIRUBIN - TOTAL 0.45 mg/dL (0.2-1.3); CALCIUM 8.9 mg/dL (8.5-10.1); CARBON DIOXIDE 26.9 mmol/L (21.0-32.0); CREATININE - SERUM 2.1 mg/dL (0.6-1.3); POTASSIUM - SERUM 3.9 mmol/L (3.5-5.1); PROTEIN - SERUM 6.7 g/dL (6.4-8.2)
[2018-09-05 08:30] VITALS: BP 98/42
[2018-09-05 14:02] VITALS: BP 102/56
[2018-09-05 18:10] VITALS: BP 104/37
[2018-09-05 20:22] VITALS: BP 90/41
[2018-09-06 05:17] VITALS: BP 101/54
[2018-09-06 05:32] LABS: BASOPHILS 0.1 % (0-2); HEMATOCRIT 32.6 % (42.0-54.0); HEMOGLOBIN 10.7 g/dL (13.5-17.5); IMMATURE GRANULOCYTES 0.3 % (0-5); LYMPHOCYTES 21.2 % (15-50); MCH 29.2 pg (26.0-34.0); MCHC 32.8 g/dL (31.0-37.0); MCV 88.8 fL (80.0-100.0); MEAN PLATELET VOLUME 11.3 fL (7.4-10.4); MONOCYTES 11.5 % (2-11); NEUTROPHILS 65.9 % (40-80); PLATELET COUNT 86 10x3/uL (130-400); RBC 3.67 10x6/uL (4.20-6.10)
[2018-09-06 05:52] LABS: ALBUMIN 3.3 g/dL (3.4-5.0); ANION GAP 12.8 mmol/L (8-16); BILIRUBIN - TOTAL 0.4 mg/dL (0.2-1.3); CALCIUM 8.7 mg/dL (8.5-10.1); CARBON DIOXIDE 27.2 mmol/L (21.0-32.0); CREATININE - SERUM 1.9 mg/dL (0.6-1.3); PROTEIN - SERUM 6.5 g/dL (6.4-8.2)
[2018-09-06 08:16] VITALS: BP 109/85
[2018-09-06] MEDS ORDERED: ELIQUIS2.5 MG PO (11:34)
== END 2018-09-06 14:05 | DRG 291 ==
LOC: D.ER 20:10 → D.MS 08-31 00:35
PROVIDERS: Emergency Medicine; Family Medicine
DX: I11.0 Hypertensive heart disease with heart failure (principal); J18.9 Pneumonia, unspecified organism; I50.31 Acute diastolic (congestive) heart failure; I48.91 Unspecified atrial fibrillation; K21.9 Gastro-esophageal reflux disease without esophagitis; F03.90 Unspecified dementia, unspecified severity, without behavioral disturbance, psychotic disturbance, mood disturbance, and anxiety; I08.0 Rheumatic disorders of both mitral and aortic valves; D63.8 Anemia in other chronic diseases classified elsewhere; I25.10 Atherosclerotic heart disease of native coronary artery without angina pectoris; I71.4 Abdominal aortic aneurysm, without rupture; Z95.0 Presence of cardiac pacemaker

== ENCOUNTER 2018-10-16 14:36 | Inpatient (IN) | payer MEDICARE, OTHER ==
[~2018-10-16] VITALS: Ht 180.3 cm; Wt 75.6 kg
--- NOTE | ~2018-10-16 | MORECARE ---
CASE MANAGEMENT DISCHARGE SUMMARY PATIENT: TRIP HERNANDEZ UNIT: [id number] ADM DATE: 10/16/18 AGE: 88 : 31 SEX: M ROOM/BED: D.8632 AUTHOR: OSCAR,DOC PHYSICIAN: REFERRING PHYSICIAN: HILLARY DUNNE MD DATE OF SERVICE: 10/20/18 Discharge Plan Patient Name: TRIP HERNANDEZ Facility: [facility]:[place] : 1930 Planned Disposition: Usp Facility Anticipated Discharge Date: 10/20/18 Discharge Date: Expected LOS: 4 Initial Reviewer: [id number] Initial Review Date: 10/19/2018 Generated: 10/20/18 2:12 pm Comments DCP- Discharge Planning Updated by [id number]: Santino Rodriguez on 10/19/18 4:[address] Patient Name: TRIP HERNANDEZ Admission Status: ER Accout number: [id number] Admission Date: 10-16-2018 : 1930 Admission Diagnosis:PNEUMONITIS DUE TO INHALATION OF FOOD AND VOMIT Attending: HILLARY DUNNE Current LOS: 3 Anticipated DC Date: 10-20-2018 Planned Disposition: Inpatient Rehab Primary Insurance: MEDICARE A & B PLANNED EXTERNAL PROVIDER: [facility] INPATIENT REHAB Discharge Planning Comments: CM RECEIVED ORDER FOR INPATIENT REHAB PRESCREENING. CM MET WITH PT IN ROOM TO DISCUSS DISCHARGE PLANNING AND NEEDS. PT REPORTS LIVING AT HOME INDEPENDENTLY WITH SPOUSE. PT HAS NO MEDICAL EQUIPMENT AND NO OUTSIDE SERVICES ASSISTING IN THE HOME. CM DISCUSSED AVAILABILITY OF HOME HEALTH, REHAB SERVICES AND MEDICAL EQUIPMENT. PT WOULD LIKE REHAB AT [place], HE HAS BEEN THERE AND RECEIVED VERY GOOD REHAB BEFORE. PT REPORTS HE JUST GOT HOME FROM [facility] REHAB AND WAS HOME FOR ONLY ONE DAY BEFORE HAVING TROUBLE CATCHING HIS BREATH AND THOUGHT IT A GOOD IDEA TO COME TO THE HOSPITAL TO BE CHECKED OUT. PT WANTS REHAB IF THE DOCTOR RECOMMENDS IT. PT REPORTS FAMILY WILL PICK HIM UP FOR DISCHARGE HOME. IMPORTANT MESSAGE FROM MEDICARE PROVIDED AND EXPLAINED. CM WAITING INPATIENT REHAB PRESCREENING FROM [facility] INPATIENT REH[facility]. Innovation Manager: Santino Rodriguez DCPIA - Discharge Planning Initial Assessment Updated by [email or web address]: Santino Rodriguez on 10/19/18 5:12 pm * Is the patient Alert and Oriented? Yes * How many steps to enter\exit or inside your home? RAMP * PCP DR. MANNING * Pharmacy [facility] [address] * Preadmission Environment Home with Family * ADLs Independent * Equipment None * Other Equipment NO MEDICAL EQUIPMENT PROVIDER [employer] * List name and contact numbers for known caregivers / representatives who currently or will assist patient after discharge: TERRENCE HERNANDEZ, SPOUSE, * Verbal permission to speak to the caregivers and representatives has been obtained from the patient. Yes * Community resources currently utilized None * Please name any agencies selected above. NONE * Additional services required to return to the preadmission environment? Yes * Can the patient safely return to the preadmission environment? Yes * Has this patient been hospitalized within the prior 30 days at any hospital? Yes External Providers External Provider: [facility] Next Contact Date: 10/20/2018 Service Request Date: Service Type: Resolution: Reviewer: Comments: Coverage Notice Reviewer: [id number] Amelia Rodriguez Notice Issued Date-Time: 10/19/2018 15:25 Notice Type: IM Discharge Notice Notice Delivered To: Patient Relationship to Patient: Invasive Physician Name: Delivery Method: HAND - Hand Delivered Bianca Days: Prior Verbal Notification: Recipient Understood Notice: Yes Recipient Signature: Yes Med Rec Note Co-signed by Attending: Coverage Notice Comment: Reviewer: [id number] Rodriguez Notice Issued Date-Time: 10/20/2018 12:25 Notice Type: Patient Choice Letter Notice Delivered To: Family Member Relationship to Patient: Spouse Invasive Physician Name: TERRENCE HERNANDEZ Delivery Method: HAND - Hand Delivered Bianca Days: Prior Verbal Notification: Recipient Understood Notice: Yes Recipient Signature: Yes Med Rec Note Co-signed by Attending: Coverage Notice Comment: Last DP export: 10/19/18 4:18 Patient Name: TRIP HERNANDEZ Page [id number] at 1312 All edits/amendments must be made on the electronic document DICTATION DATE: 10/20/18 1312 INSURANCE LOSS ASSESSOR: CLAUDIA 10/20/18 1312 RPT#: [id number] DC DATE: STATUS: ADM IN [facility] [address] [place] [address] END OF REPORT
--- NOTE | ~2018-10-16 | MORECARE ---
CASE MANAGEMENT DISCHARGE SUMMARY PATIENT: TRIP HERNANDEZ UNIT: [id number] ADM DATE: 10/16/18 AGE: 88 : 31 SEX: M ROOM/BED: D.5227 AUTHOR: OSCAR,DOC PHYSICIAN: REFERRING PHYSICIAN: HILLARY DUNNE MD DATE OF SERVICE: 10/22/18 Discharge Plan Patient Name: TRIP HERNANDEZ Facility: [facility]:[place] : 1930 Planned Disposition: Fpc Facility Anticipated Discharge Date: 10/20/18 Discharge Date: Expected LOS: 4 Initial Reviewer: [id number] Initial Review Date: 10/19/2018 Generated: 10/22/18 11:33 am Comments DCP- Discharge Planning Updated by [email or web address]: Santino Rodriguez on 10/20/18 2:[address] Patient Name: TRIP HERNANDEZ Encounter No: [id number] : 1930 Primary Insurance: MEDICARE A & B Anticipated DC Date: 10-20-2018 Planned Disposition: Fpc Facility External Planned Provider: [facility] MEDICARE REHAB BED DCP follow-up note: MELISSA SPOKE TO PT'S SON, DEAN HERNANDEZ, AT [facility]. DEAN PROVIDED HIS PHONE NUMBER FOR CONTACT, . HE IS CONSIDERING TAKING PT HOME AND IF SO, WILL NEED A NEBULIZER, PT HAS HOME HEALTH WITH [facility] THAT WAS ARRANGED BY [facility] BUT WAS NOT ADMITTED BECAUSE PT CAME TO THE HOSPITAL PRIOR TO HOME HEALTH ADMISSION. DEAN WILL DISCUSS THIS WITH THE DOCTOR AND LET CM KNOW. MELISSA CALLED [facility] AT [phone], SPOKE TO MARTHA AND INFORMED HER THAT PT'S FAMILY MAY WANT REHAB OR MAY JUST GO HOME WITH HOME HEALTH, WE ARE WAITING ON FAMILY DECISION. CM WAITING ADMISSION DETERMINATION FROM [facility]. CM WAITING ON PT TO DETERMINE IF FAMILY IS GOING TO HAVE PT GO TO REHAB AT [facility] OF HOME WITH [facility]. IF PT GOES HOME WITH HOME HEALTH, [facility] WILL NEED HOME HEALTH ORDERS. Santino Rodriguez CASE MAUREEN DCP- Discharge Planning Updated by [id number]: Santino Rodriguez on 10/20/18 12:[address] Patient Name: TRIP HERNANDEZ Encounter No: [id number] : 1930 Primary Insurance: MEDICARE A & B Anticipated DC Date: 10-20-2018 Planned Disposition: Fpc Facility External Planned Provider: [facility] MEDICARE REHAB BED DCP follow-up note: CM SPOKE TO MIGUEL ANGEL OF [facility] INPATIENT REHAB WHO INFORMED CM THAT SCREENING COMPLETED, PT IS NOT ABLE TO TOLERATE THREE HOURS OF PROGRESSIVE THERAPY PER DAY AND [facility] RE[facility]AB IS RECOMMENDED. CM SPOKE TO PT IN ROOM WHO IS TEARFUL, REPORTING HE IS LONELY AND WANTS HIS TO COME AND SEE HIM. CM CALLED PT'S , [place], ; CM INFORMED OF PT'S REQUEST, TERRENCE WILL BE HERE LATER TODAY; CM INFORMED PT. CM INFORMED BOTH PT AND SPOUSE THAT INPATIENT REHAB DECLINED AND RECOMMENDED [facility]. PT IS OK WITH RETURN TO [facility], PT'S SPOUSE ASKED THAT CM SEND REFERRAL FOR REHAB TO [facility]. CHOICE LETTER COMPLETED. CM CALLED [facility] AT [phone], SPOKE TO MARTHA WHO INFORMED CM THAT PT JUST LEFT REHAB A FEW DAYS AGO AND SHE WILL SCREEN FOR REHAB. CM FAXED REFERRAL TO [facility] AT [phone]. CM WAITING ADMISSION DETERMINATION FROM [facility]. Santino Rodriguez, CASE MANAGEMENT DCP- Discharge Planning Updated by [id number]: Santino Rodriguez on 10/19/18 4:[address] Patient Name: TRIP HERNANDEZ Admission Status: ER Accout number: [id number] Admission Date: 10-16-2018 : 1930 Admission Diagnosis:PNEUMONITIS DUE TO INHALATION OF FOOD AND VOMIT Attending: HILLARY DUNNE Current LOS: 3 Anticipated DC Date: 10-20-2018 Planned Disposition: Inpatient Rehab Primary Insurance: MEDICARE A & B PLANNED EXTERNAL PROVIDER: [facility] INPATIENT REHAB Discharge Planning Comments: CM RECEIVED ORDER FOR INPATIENT REHAB PRESCREENING. CM MET WITH PT IN ROOM TO DISCUSS DISCHARGE PLANNING AND NEEDS. PT REPORTS LIVING AT HOME INDEPENDENTLY WITH SPOUSE. PT HAS NO MEDICAL EQUIPMENT AND NO OUTSIDE SERVICES ASSISTING IN THE HOME. CM DISCUSSED AVAILABILITY OF HOME HEALTH, REHAB SERVICES AND MEDICAL EQUIPMENT. PT WOULD LIKE REHAB AT [place], HE HAS BEEN THERE AND RECEIVED VERY GOOD REHAB BEFORE. PT REPORTS HE JUST GOT HOME FROM [facility] AND WAS HOME FOR ONLY ONE DAY BEFORE HAVING TROUBLE CATCHING HIS BREATH AND THOUGHT IT A GOOD IDEA TO COME TO THE HOSPITAL TO BE CHECKED OUT. PT WANTS REHAB IF THE DOCTOR RECOMMENDS IT. PT REPORTS FAMILY WILL PICK HIM UP FOR DISCHARGE HOME. IMPORTANT MESSAGE FROM MEDICARE PROVIDED AND EXPLAINED. CM WAITING INPATIENT REHAB PRESCREENING FROM [facility] INPATIENT REHAB. Metabolic Specialist: Santino Rodriguez DCPIA - Discharge Planning Initial Assessment Updated by [email or web address]: Santino Rodriguez on 10/20/18 3:05 pm * Is the patient Alert and Oriented? Yes * How many steps to enter\exit or inside your home? RAMP * PCP DR. MANNING * Pharmacy [facility] [address] * Preadmission Environment Home with Family * ADLs Independent * Equipment None * Other Equipment NO MEDICAL EQUIPMENT PROVIDER [employer]REFERENCE * List name and contact numbers for known caregivers / representatives who currently or will assist patient after discharge: TERRENCE HERNANDEZ, SPOUSE, * Verbal permission to speak to the caregivers and representatives has been obtained from the patient. Yes * Community resources currently utilized Home Health * Please name any agencies selected above. [facility], ARRANGED BY [facility] BUT NOT ADMITTED DUE TO PT'S ADMISSION TO HOSPITAL. * Additional services required to return to the preadmission environment? Yes * Can the patient safely return to the preadmission environment? Yes * Has this patient been hospitalized within the prior 30 days at any hospital? Yes Coverage Notice Reviewer: [id number] Amelia Rodriguez Notice Issued Date-Time: 10/19/2018 15:25 Notice Type: IM Discharge Notice Notice Delivered To: Patient Relationship to Patient: Automatic Washer Mechanic Name: Delivery Method: HAND - Hand Delivered Bianca Days: Prior Verbal Notification: Recipient Understood Notice: Yes Recipient Signature: Yes Med Rec Note Co-signed by Attending: Coverage Notice Comment: Reviewer: [id number] Amelia Rodriguez Notice Issued Date-Time: 10/20/2018 12:25 Notice Type: Patient Choice Letter Notice Delivered To: Family Member Relationship to Patient: Spouse Automatic Washer Mechanic Name: TERRENCE HERNANDEZ Delivery Method: HAND - Hand Delivered Bianca Days: Prior Verbal Notification: Recipient Understood Notice: Yes Recipient Signature: Yes Med Rec Note Co-signed by Attending: Coverage Notice Comment: Last DP export: 10/20/18 2:11 Patient Name: TRIP HERNANDEZ Page 86617 at 1033 All edits/amendments must be made on the electronic document DICTATION DATE: 10/22/18 1032 LAB AIDE: CLAUDIA 10/22/18 1032 RPT#: [id number] DC DATE: STATUS: ADM IN [facility] [address] [place] [address] END OF REPORT
--- NOTE | ~2018-10-16 | MORECARE ---
CASE MANAGEMENT DISCHARGE SUMMARY PATIENT: TRIP HERNANDEZ UNIT: [id number] ADM DATE: 10/16/18 AGE: 88 : 31 SEX: M ROOM/BED: D.8582 AUTHOR: OSCAR,DOC PHYSICIAN: REFERRING PHYSICIAN: HILLARY DUNNE MD DATE OF SERVICE: 10/19/18 Discharge Plan Patient Name: TRIP HERNANDEZ Facility: [facility]:[place] : 1930 Planned Disposition: Inpatient Rehab Anticipated Discharge Date: 10/20/18 Discharge Date: Expected LOS: 4 Initial Reviewer: [id number] Initial Review Date: 10/19/2018 Generated: 10/19/18 6:18 pm Comments DCP- Discharge Planning Updated by [email or web address]: Santino Rodriguez on 10/19/18 4:[address] Patient Name: TRIP HERNANDEZ Admission Status: ER Accout number: [id number] Admission Date: 10-16-2018 : 1930 Admission Diagnosis:PNEUMONITIS DUE TO INHALATION OF FOOD AND VOMIT Attending: HILLARY DUNNE Current LOS: 3 Anticipated DC Date: 10-20-2018 Planned Disposition: Inpatient Rehab Primary Insurance: MEDICARE A & B PLANNED EXTERNAL PROVIDER: [facility] INPATIENT REHAB Discharge Planning Comments: CM RECEIVED ORDER FOR INPATIENT REHAB PRESCREENING. CM MET WITH PT IN ROOM TO DISCUSS DISCHARGE PLANNING AND NEEDS. PT REPORTS LIVING AT HOME INDEPENDENTLY WITH SPOUSE. PT HAS NO MEDICAL EQUIPMENT AND NO OUTSIDE SERVICES ASSISTING IN THE HOME. CM DISCUSSED AVAILABILITY OF HOME HEALTH, REHAB SERVICES AND MEDICAL EQUIPMENT. PT WOULD LIKE REHAB AT [place], HE HAS BEEN THERE AND RECEIVED VERY GOOD REHAB BEFORE. PT REPORTS HE JUST GOT HOME FROM [facility] REH[facility] AND WAS HOME FOR ONLY ONE DAY BEFORE HAVING TROUBLE CATCHING HIS BREATH AND THOUGHT IT A GOOD IDEA TO COME TO THE HOSPITAL TO BE CHECKED OUT. PT WANTS REHAB IF THE DOCTOR RECOMMENDS IT. PT REPORTS FAMILY WILL PICK HIM UP FOR DISCHARGE HOME. IMPORTANT MESSAGE FROM MEDICARE PROVIDED AND EXPLAINED. CM WAITING INPATIENT REHAB PRESCREENING FROM [facility] INPATIENT REHAB. Charge Histotechnologist: Santino Rodriguez DCPIA - Discharge Planning Initial Assessment Updated by [id number]: Santino Rodriguez on 10/19/18 5:12 pm * Is the patient Alert and Oriented? Yes * How many steps to enter\exit or inside your home? RAMP * PCP DR. MANNING * Pharmacy [facility] [address] * Preadmission Environment Home with Family * ADLs Independent * Equipment None * Other Equipment NO MEDICAL EQUIPMENT PROVIDER PREFERENCE * List name and contact numbers for known caregivers / representatives who currently or will assist patient after discharge: TERRENCE HERNANDEZ, SPOUSE, * Verbal permission to speak to the caregivers and representatives has been obtained from the patient. Yes * Community resources currently utilized None * Please name any agencies selected above. NONE * Additional services required to return to the preadmission environment? Yes * Can the patient safely return to the preadmission environment? Yes * Has this patient been hospitalized within the prior 30 days at any hospital? Yes Coverage Notice Reviewer: [id number] - Santino Rodriguez Notice Issued Date-Time: 10/19/2018 15:25 Notice Type: IM Discharge Notice Notice Delivered To: Patient Relationship to Patient: Solution Specialist Name: Delivery Method: HAND - Hand Delivered Bianca Days: Prior Verbal Notification: Recipient Understood Notice: Yes Recipient Signature: Yes Med Rec Note Co-signed by Attending: Coverage Notice Comment: Patient Name: TRIP HERNANDEZ Page 98972 at 1718 All edits/amendments must be made on the electronic document DICTATION DATE: 10/19/181716 CONTROLS OPERATOR MOLDED GOODS: CLAUDIA 10/19/181716 RPT#: [id number] AL DATE: STATUS: ADM IN [facility] [address] [place] [address] END OF REPORT
--- NOTE | ~2018-10-16 | MORECARE ---
CASE MANAGEMENT DISCHARGE SUMMARY PATIENT: TRIP HERNANDEZ UNIT: [id number] ADM DATE: 10/16/18 AGE: 88 : 31 SEX: M ROOM/BED: D.9130 AUTHOR: OSCAR,DOC PHYSICIAN: REFERRING PHYSICIAN: HILLARY DUNNE MD DATE OF SERVICE: 10/22/18 Discharge Plan Patient Name: TRIP HERNANDEZ Facility: [facility]:[place] : 1930 Planned Disposition: Home with Home Health Anticipated Discharge Date: 10/22/18 Discharge Date: Expected LOS: 6 Initial Reviewer: [email or web address] Initial Review Date: 10/19/2018 Generated: 10/22/18 4:18 pm Comments DCP- Discharge Planning Updated by [email or web address]: Santino Rodriguez on 10/20/18 2:[address] Patient Name: TRIP HERNANDEZ Encounter No: [id number] : 1930 Primary Insurance: MEDICARE A & B Anticipated DC Date: 10-20-2018 Planned Disposition: Senior Living Facility External Planned Provider: [facility] MEDICARE REHAB BED DCP follow-up note: MELISSA SPOKE TO PT'S SON, DEAN HERNANDEZ, AT [facility]. DEAN PROVIDED HIS PHONE NUMBER FOR CONTACT, . HE IS CONSIDERING TAKING PT HOME AND IF SO, WILL NEED A NEBULIZER, PT HAS HOME HEALTH WITH [facility] THAT WAS ARRANGED BY [facility] BUT WAS NOT ADMITTED BECAUSE PT CAME TO THE HOSPITAL PRIOR TO HOME HEALTH ADMISSION. DEAN WILL DISCUSS THIS WITH THE DOCTOR AND LET CM KNOW. MELISSA CALLED [facility] AT [phone], SPOKE TO MARTHA AND INFORMED HER THAT PT'S FAMILY MAY WANT REHAB OR MAY JUST GO HOME WITH HOME HEALTH, WE ARE WAITING ON FAMILY DECISION. CM WAITING ADMISSION DETERMINATION FROM [facility] N[facility] RE[facility]. CM WAITING ON PT TO DETERMINE IF FAMILY IS GOING TO HAVE PT GO TO REHAB AT [facility] OF HOME WITH [facility]. IF PT GOES HOME WITH HOME HEALTH, [facility] WILL NEED HOME HEALTH ORDERS. GERMAN Robledo DCP- Discharge Planning Updated by [id number]: Santino Rodriguez on 10/20/18 12:[address] Patient Name: TRIP HERNANDEZ Encounter No: [id number] : 1930 Primary Insurance: MEDICARE A & B Anticipated DC Date: 10-20-2018 Planned Disposition: Senior Living Facility External Planned Provider: [facility] MEDICARE REHAB BED DCP follow-up note: CM SPOKE TO MIGUEL ANGEL OF [facility] INPATIENT REHAB WHO INFORMED CM THAT SCREENING COMPLETED, PT IS NOT ABLE TO TOLERATE THREE HOURS OF PROGRESSIVE THERAPY PER DAY AND [facility] REHAB IS RECOMMENDED. CM SPOKE TO PT IN ROOM WHO IS TEARFUL, REPORTING HE IS LONELY AND WANTS HIS TO COME AND SEE HIM. CM CALLED PT'S , [place], ; CM INFORMED OF PT'S REQUEST, TERRENCE WILL BE HERE LATER TODAY; CM INFORMED PT. CM INFORMED BOTH PT AND SPOUSE THAT INPATIENT REHAB DECLINED AND RECOMMENDED [facility]. PT IS OK WITH RETURN TO [facility], PT'S SPOUSE ASKED THAT CM SEND REFERRAL FOR REHAB TO [facility]. CHOICE LETTER COMPLETED. CM CALLED [facility] AT [phone], SPOKE TO MARTHA WHO INFORMED CM THAT PT JUST LEFT REHAB A FEW DAYS AGO AND SHE WILL SCREEN FOR REHAB. CM FAXED REFERRAL TO [facility] AT [phone]. CM WAITING ADMISSION DETERMINATION FROM [facility] RE[facility]. Santino Rodriguez, CASE MANAGEMENT DCP- Discharge Planning Updated by [email or web address]: Santino Rodriguez on 10/19/18 4:[address] Patient Name: TRIP HERNANDEZ Admission Status: ER Accout number: [id number] Admission Date: 10-16-2018 : 1930 Admission Diagnosis:PNEUMONITIS DUE TO INHALATION OF FOOD AND VOMIT Attending: HILLARY DUNNE Current LOS: 3 Anticipated DC Date: 10-20-2018 Planned Disposition: Inpatient Rehab Primary Insurance: MEDICARE A & B PLANNED EXTERNAL PROVIDER: [facility] INPATIENT REHAB Discharge Planning Comments: CM RECEIVED ORDER FOR INPATIENT REHAB PRESCREENING. CM MET WITH PT IN ROOM TO DISCUSS DISCHARGE PLANNING AND NEEDS. PT REPORTS LIVING AT HOME INDEPENDENTLY WITH SPOUSE. PT HAS NO MEDICAL EQUIPMENT AND NO OUTSIDE SERVICES ASSISTING IN THE HOME. CM DISCUSSED AVAILABILITY OF HOME HEALTH, REHAB SERVICES AND MEDICAL EQUIPMENT. PT WOULD LIKE REHAB AT [place], HE HAS BEEN THERE AND RECEIVED VERY GOOD REHAB BEFORE. PT REPORTS HE JUST GOT HOME FROM [facility] AND WAS HOME FOR ONLY ONE DAY BEFORE HAVING TROUBLE CATCHING HIS BREATH AND THOUGHT IT A GOOD IDEA TO COME TO THE HOSPITAL TO BE CHECKED OUT. PT WANTS REHAB IF THE DOCTOR RECOMMENDS IT. PT REPORTS FAMILY WILL PICK HIM UP FOR DISCHARGE HOME. IMPORTANT MESSAGE FROM MEDICARE PROVIDED AND EXPLAINED. CM WAITING INPATIENT REHAB PRESCREENING FROM [facility] INPATIENT REHAB. Produce Assistant: Santino Rodriguez DCPIA - Discharge Planning Initial Assessment Updated by [id number]: Santino Rodriguez on 10/22/18 3:00 pm * Is the patient Alert and Oriented? Yes * How many steps to enter\exit or inside your home? RAMP * PCP DR. MANNING * [facility] [address] * Preadmission Environment Home with Family * ADLs Independent * Equipment None * Other Equipment NO MEDICAL EQUIPMENT PROVIDER PREFERENCE * List name and contact numbers for known caregivers / representatives who currently or will assist patient after discharge: DEAN HERNANDEZ, SON, , CELL [phone] TERRENCE HERNANDEZ, SPOUSE, * Verbal permission to speak to the caregivers and representatives has been obtained from the patient. Yes * Community resources currently utilized Home Health * Please name any agencies selected above. [facility], AR[facility]ANGED BY [facility] BUT NOT ADMITTED DUE TO PT'S ADMISSION TO HOSPITAL. * Additional services required to return to the preadmission environment? Yes * Can the patient safely return to the preadmission environment? Yes * Has this patient been hospitalized within the prior 30 days at any hospital? Yes Coverage Notice Reviewer: [id number] Amelia Rodriguez Notice Issued Date-Time: 10/19/2018 15:25 Notice Type: IM Discharge Notice Notice Delivered To: Patient Relationship to Patient: Nuclear Medicine Technician Name: Delivery Method: HAND - Hand Delivered Bianca Days: Prior Verbal Notification: Recipient Understood Notice: Yes Recipient Signature: Yes Med Rec Note Co-signed by Attending: Coverage Notice Comment: Reviewer: JACQUELINE Rodriguez Notice Issued Date-Time: 10/20/2018 12:25 Notice Type: Patient Choice Letter Notice Delivered To: Family Member Relationship to Patient: Spouse Nuclear Medicine Technician Name: TERRENCE HERNANDEZ Delivery Method: HAND - Hand Delivered Bianca Days: Prior Verbal Notification: Recipient Understood Notice: Yes Recipient Signature: Yes Med Rec Note Co-signed by Attending: Coverage Notice Comment: Reviewer: [id number] Amelia Rodriguez Notice Issued Date-Time: 10/22/2018 12:24 Notice Type: IM Discharge Notice Notice Delivered To: Patient Relationship to Patient: Nuclear Medicine Technician Name: Delivery Method: HAND - Hand Delivered Bianca Days: Prior Verbal Notification: Recipient Understood Notice: Yes Recipient Signature: Yes Med Rec Note Co-signed by Attending: Coverage Notice Comment: Last DP export: 10/22/18 2:04 Patient Name: TRIP HERNANDEZ Page 87670 at 1518 All edits/amendments must be made on the electronic document DICTATION DATE: 10/22/181516 TREATING PLANT OPERATOR: CLAUDIA 10/22/181516 RPT#: [id number] DC DATE: STATUS: ADM IN [facility] [address] [place] [address] END OF REPORT
--- NOTE | ~2018-10-16 | MORECARE ---
CASE MANAGEMENT DISCHARGE SUMMARY PATIENT: TRIP HERNANDEZ UNIT: [id number] ADM DATE: 10/16/18 AGE: 88 : 31 SEX: M ROOM/BED: D.5004 AUTHOR: OSCARDOC PHYSICIAN: REFERRING PHYSICIAN: HILLARY DUNNE MD DATE OF SERVICE: 10/22/18 Discharge Plan Patient Name: TRIP HERNANDEZ Facility: [facility]:[place] : 1930 Planned Disposition: Home Anticipated Discharge Date: 10/22/18 Discharge Date: Expected LOS: 6 Initial Reviewer: [id number] Initial Review Date: 10/19/2018 Generated: 10/22/18 4:04 pm Comments DCP- Discharge Planning Updated by [id number]: Santino Rodriguez on 10/20/18 2:[address] Patient Name: TRIP HERNANDEZ Encounter No: [id number] : 1930 Primary Insurance: MEDICARE A & B Anticipated DC Date: 10-20-2018 Planned Disposition: Prison Facility External Planned Provider: [facility] MEDICARE REHAB BED DCP follow-up note: MELISSA SPOKE TO PT'S SON, DEAN HERNANDEZ, AT [employer]. DEAN PROVIDED HIS PHONE NUMBER FOR CONTACT, . HE IS CONSIDERING TAKING PT HOME AND IF SO, WILL NEED A NEBULIZER, PT HAS HOME HEALTH WITH [facility] THAT WAS ARRANGED BY [facility] BUT WAS NOT ADMITTED BECAUSE PT CAME TO THE HOSPITAL PRIOR TO HOME HEALTH ADMISSION. DEAN WILL DISCUSS THIS WITH THE DOCTOR AND LET CM KNOW. MELISSA CALLED [facility] AT [phone], SPOKE TO MARTHA AND INFORMED HER THAT PT'S FAMILY MAY WANT REHAB OR MAY JUST GO HOME WITH HOME HEALTH, WE ARE WAITING ON FAMILY DECISION. CM WAITING ADMISSION DETERMINATION FROM [facility]. CM WAITING ON PT TO DETERMINE IF FAMILY IS GOING TO HAVE PT GO TO REHAB AT [facility] OF HOME WITH [facility]. IF PT GOES HOME WITH HOME HEALTH, [facility] WILL NEED HOME HEALTH ORDERS. GERMAN Robledo DCP- Discharge Planning Updated by [id number]: Santino Rodriguez on 10/20/18 12:[address] Patient Name: TRIP HERNANDEZ Encounter No: [id number] : 1930 Primary Insurance: MEDICARE A & B Anticipated DC Date: 10-20-2018 Planned Disposition: Prison Facility External Planned Provider: [facility] MEDICARE REHAB BED DCP follow-up note: CM SPOKE TO MIGUEL ANGEL OF [facility] INPATIENT REHAB WHO INFORMED CM THAT SCREENING COMPLETED, PT IS NOT ABLE TO TOLERATE THREE HOURS OF PROGRESSIVE THERAPY PER DAY AND GROUP HOME REHAB IS RECOMMENDED. CM SPOKE TO PT IN ROOM WHO IS TEARFUL, REPORTING HE IS LONELY AND WANTS HIS TO COME AND SEE HIM. CM CALLED PT'S , [facility], ; CM INFORMED OF PT'S REQUEST, TERRENCE WILL BE HERE LATER TODAY; CM INFORMED PT. CM INFORMED BOTH PT AND SPOUSE THAT INPATIENT REHAB DECLINED AND RECOMMENDED GROUP HOME. PT IS OK WITH RETURN TO [facility], PT'S SPOUSE ASKED THAT CM SEND REFERRAL FOR REHAB TO [facility]. CHOICE LETTER COMPLETED. CM CALLED [facility] AT [phone], SPOKE TO MARTHA WHO INFORMED CM THAT PT JUST LEFT REHAB A FEW DAYS AGO AND SHE WILL SCREEN FOR REHAB. CM FAXED REFERRAL TO [facility] AT [phone]. CM WAITING ADMISSION DETERMINATION FROM [facility]. Santino Rodriguez, CASE MANAGEMENT DCP- Discharge Planning Updated by [id number]: Santino Rodriguez on 10/19/18 4:[address] Patient Name: TRIP HERNANDEZ Admission Status: ER Accout number: [id number] Admission Date: 10-16-2018 : 1930 Admission Diagnosis:PNEUMONITIS DUE TO INHALATION OF FOOD AND VOMIT Attending: HILLARY DUNNE Current LOS: 3 Anticipated DC Date: 10-20-2018 Planned Disposition: Inpatient Rehab Primary Insurance: MEDICARE A & B PLANNED EXTERNAL PROVIDER: [facility] INPATIENT REHAB Discharge Planning Comments: CM RECEIVED ORDER FOR INPATIENT REHAB PRESCREENING. CM MET WITH PT IN ROOM TO DISCUSS DISCHARGE PLANNING AND NEEDS. PT REPORTS LIVING AT HOME INDEPENDENTLY WITH SPOUSE. PT HAS NO MEDICAL EQUIPMENT AND NO OUTSIDE SERVICES ASSISTING IN THE HOME. CM DISCUSSED AVAILABILITY OF HOME HEALTH, REHAB SERVICES AND MEDICAL EQUIPMENT. PT WOULD LIKE REHAB AT [place], HE HAS BEEN THERE AND RECEIVED VERY GOOD REHAB BEFORE. PT REPORTS HE JUST GOT HOME FROM [facility] AND WAS HOME FOR ONLY ONE DAY BEFORE HAVING TROUBLE CATCHING HIS BREATH AND THOUGHT IT A GOOD IDEA TO COME TO THE HOSPITAL TO BE CHECKED OUT. PT WANTS REHAB IF THE DOCTOR RECOMMENDS IT. PT REPORTS FAMILY WILL PICK HIM UP FOR DISCHARGE HOME. IMPORTANT MESSAGE FROM MEDICARE PROVIDED AND EXPLAINED. CM WAITING INPATIENT REHAB PRESCREENING FROM [facility] INPATIENT REH[facility]. Line Clearance Foreman: Santino Rodriguez DCPIA - Discharge Planning Initial Assessment Updated by [id number]: Santino Rodirguez on 10/22/18 3:00 pm * Is the patient Alert and Oriented? Yes * How many steps to enter\exit or inside your home? RAMP * PCP DR. MANNING * Pharmacy [facility] ON [address] * Preadmission Environment Home with Family * ADLs Independent * Equipment None * Other Equipment NO MEDICAL EQUIPMENT PROVIDER PREFERENCE * List name and contact numbers for known caregivers / representatives who currently or will assist patient after discharge: DEAN HERNANDEZ, SON, , CELL [phone] TERRENCE HERNANDEZ, SPOUSE, * Verbal permission to speak to the caregivers and representatives has been obtained from the patient. Yes * Community resources currently utilized Home Health * Please name any agencies selected above. [facility], [facility]ED BY [facility] BUT NOT ADMITTED DUE TO PT'S ADMISSION TO HOSPITAL. * Additional services required to return to the preadmission environment? Yes * Can the patient safely return to the preadmission environment? Yes * Has this patient been hospitalized within the prior 30 days at any hospital? Yes External Providers External Provider: [facility] Next Contact Date: 10/22/2018 Service Request Date: Service Type: Resolution: Reviewer: Comments: Coverage Notice Reviewer: [id number] Amelia Rodriguez Notice Issued Date-Time: 10/19/2018 15:25 Notice Type: IM Discharge Notice Notice Delivered To: Patient Relationship to Patient: Endocrinology Physician Name: Delivery Method: HAND - Hand Delivered Bianca Days: Prior Verbal Notification: Recipient Understood Notice: Yes Recipient Signature: Yes Med Rec Note Co-signed by Attending: Coverage Notice Comment: Reviewer: [id number] Rodriguez Notice Issued Date-Time: 10/20/2018 12:25 Notice Type: Patient Choice Letter Notice Delivered To: Family Member Relationship to Patient: Spouse Endocrinology Physician Name: TERRENCE HERNANDEZ Delivery Method: HAND - Hand Delivered Bianca Days: Prior Verbal Notification: Recipient Understood Notice: Yes Recipient Signature: Yes Med Rec Note Co-signed by Attending: Coverage Notice Comment: Reviewer: [id number] Amelia Rodriguez Notice Issued Date-Time: 10/22/2018 12:24 Notice Type: IM Discharge Notice Notice Delivered To: Patient Relationship to Patient: Endocrinology Physician Name: Delivery Method: HAND - Hand Delivered Bianca Days: Prior Verbal Notification: Recipient Understood Notice: Yes Recipient Signature: Yes Med Rec Note Co-signed by Attending: Coverage Notice Comment: Last DP export: 10/22/18 1:58 Patient Name: TRIP HERNANDEZ Page [id number] at 1504 All edits/amendments must be made on the electronic document DICTATION DATE: 10/22/18 1504 STAFF TRAINER: CLAUDIA 10/22/18 1504 RPT#: [id number] HI DATE: STATUS: ADM IN [facility] [address] [place] [address] END OF REPORT
--- NOTE | ~2018-10-16 | MORECARE ---
CASE MANAGEMENT DISCHARGE SUMMARY PATIENT: TRIP HERNANDEZ UNIT: [id number] ADM DATE: 10/16/18 AGE: 88 : 31 SEX: M ROOM/BED: D.9892 AUTHOR: OSCAR,DOC PHYSICIAN: REFERRING PHYSICIAN: HILLARY DUNNE MD DATE OF SERVICE: 10/22/18 Discharge Plan Patient Name: TRIP HERNANDEZ Facility: [facility]:[place] : 1930 Planned Disposition: Snf Facility Anticipated Discharge Date: 10/20/18 Discharge Date: Expected LOS: 4 Initial Reviewer: [id number] Initial Review Date: 10/19/2018 Generated: 10/22/18 3:17 pm Comments DCP- Discharge Planning Updated by [id number]: Santino Rodriguez on 10/20/18 2:[address] Patient Name: TRIP HERNANDEZ Encounter No: [id number] : 1930 Primary Insurance: MEDICARE A & B Anticipated DC Date: 10-20-2018 Planned Disposition: Snf Facility External Planned Provider: [facility] NURSING [facility] RE[facility] MEDICARE REHAB BED DCP follow-up note: MELISSA SPOKE TO PT'S SON, DEAN HERNANDEZ, AT [employer] [facility]. DEAN PROVIDED HIS PHONE NUMBER FOR CONTACT, . HE IS CONSIDERING TAKING PT HOME AND IF SO, WILL NEED A NEBULIZER, PT HAS HOME HEALTH WITH [facility] THAT WAS ARRANGED BY [facility] BUT WAS NOT ADMITTED BECAUSE PT CAME TO THE HOSPITAL PRIOR TO HOME HEALTH ADMISSION. DEAN WILL DISCUSS THIS WITH THE DOCTOR AND LET CM KNOW. MELISSA CALLED [facility] AT [phone], SPOKE TO MARTHA AND INFORMED HER THAT PT'S FAMILY MAY WANT REHAB OR MAY JUST GO HOME WITH HOME HEALTH, WE ARE WAITING ON FAMILY DECISION. CM WAITING ADMISSION DETERMINATION FROM [facility] NURSING AND REHAB. CM WAITING ON PT TO DETERMINE IF FAMILY IS GOING TO HAVE PT GO TO REHAB AT [facility] OF HOME WITH [facility]. IF PT GOES HOME WITH HOME HEALTH, PRUDENCIO WILL NEED HOME HEALTH ORDERS. Santino Rodriguez CASE MAUREEN DCP- Discharge Planning Updated by [id number]: Santino Rodriguez on 10/20/18 12:[address] Patient Name: TRIP HERNANDEZ Encounter No: [id number] : 1930 Primary Insurance: MEDICARE A & B Anticipated DC Date: 10-20-2018 Planned Disposition: Snf Facility External Planned Provider: [facility] MEDICARE REHAB BED DCP follow-up note: CM SPOKE TO MIGUEL ANGEL OF [facility] INPATIENT REHAB WHO INFORMED CM THAT SCREENING COMPLETED, PT IS NOT ABLE TO TOLERATE THREE HOURS OF PROGRESSIVE THERAPY PER DAY AND ASSISTED REHAB IS RECOMMENDED. CM SPOKE TO PT IN ROOM WHO IS TEARFUL, REPORTING HE IS LONELY AND WANTS HIS TO COME AND SEE HIM. CM CALLED PT'S , [place], ; CM INFORMED OF PT'S REQUEST, TERRENCE WILL BE HERE LATER TODAY; CM INFORMED PT. CM INFORMED BOTH PT AND SPOUSE THAT INPATIENT REHAB DECLINED AND RECOMMENDED ASSISTED. PT IS OK WITH RETURN TO [facility], PT'S SPOUSE ASKED THAT CM SEND REFERRAL FOR REHAB TO [facility]. CHOICE LETTER COMPLETED. CM CALLED [facility] AT [phone], SPOKE TO MARTHA WHO INFORMED CM THAT PT JUST LEFT REHAB A FEW DAYS AGO AND SHE WILL SCREEN FOR REHAB. CM FAXED REFERRAL TO [facility] AT [phone]. CM WAITING ADMISSION DETERMINATION FROM [facility] NURSING AND RE[facility]. Santino Rodriguez, CASE MANAGEMENT DCP- Discharge Planning Updated by [id number]: Santino Rodriguez on 10/19/18 4:[address] Patient Name: TRIP HERNANDEZ Admission Status: ER Accout number: [id number] Admission Date: 10-16-2018 : 1930 Admission Diagnosis:PNEUMONITIS DUE TO INHALATION OF FOOD AND VOMIT Attending: HILLARY DUNNE Current LOS: 3 Anticipated DC Date: 10-20-2018 Planned Disposition: Inpatient Rehab Primary Insurance: MEDICARE A & B PLANNED EXTERNAL PROVIDER: [facility] INPATIENT REHAB Discharge Planning Comments: CM RECEIVED ORDER FOR INPATIENT REHAB PRESCREENING. CM MET WITH PT IN ROOM TO DISCUSS DISCHARGE PLANNING AND NEEDS. PT REPORTS LIVING AT HOME INDEPENDENTLY WITH SPOUSE. PT HAS NO MEDICAL EQUIPMENT AND NO OUTSIDE SERVICES ASSISTING IN THE HOME. CM DISCUSSED AVAILABILITY OF HOME HEALTH, REHAB SERVICES AND MEDICAL EQUIPMENT. PT WOULD LIKE REHAB AT [place], HE HAS BEEN THERE AND RECEIVED VERY GOOD REHAB BEFORE. PT REPORTS HE JUST GOT HOME FROM [facility] AND WAS HOME FOR ONLY ONE DAY BEFORE HAVING TROUBLE CATCHING HIS BREATH AND THOUGHT IT A GOOD IDEA TO COME TO THE HOSPITAL TO BE CHECKED OUT. PT WANTS REHAB IF THE DOCTOR RECOMMENDS IT. PT REPORTS FAMILY WILL PICK HIM UP FOR DISCHARGE HOME. IMPORTANT MESSAGE FROM MEDICARE PROVIDED AND EXPLAINED. CM WAITING INPATIENT REHAB PRESCREENING FROM [facility] INPATIENT REHAB. Inbound Sales Advisor: Santino Rodriguez DCPIA - Discharge Planning Initial Assessment Updated by [id number]: Santino Rodriguez on 10/22/18 2:02 pm * Is the patient Alert and Oriented? Yes * How many steps to enter\exit or inside your home? RAMP * PCP DR. MANNING * Pharmacy [facility] ON [address] * Preadmission Environment Home with Family * ADLs Independent * Equipment None * Other Equipment NO MEDICAL EQUIPMENT PROVIDER PREFERENCE * List name and contact numbers for known caregivers / representatives who currently or will assist patient after discharge: DEAN HERNANDEZ, SON, TERRENCE HERNANDEZ, SPOUSE, * Verbal permission to speak to the caregivers and representatives has been obtained from the patient. Yes * Community resources currently utilized Home Health * Please name any agencies selected above. [facility], ARRANGED BY [facility] BUT NOT ADMITTED DUE TO PT'S ADMISSION TO HOSPITAL. * Additional services required to return to the preadmission environment? Yes * Can the patient safely return to the preadmission environment? Yes * Has this patient been hospitalized within the prior 30 days at any hospital? Yes External Providers External Provider: [facility] Next Contact Date: 10/22/2018 Service Request Date: Service Type: Resolution: Reviewer: Comments: Coverage Notice Reviewer: [id number] Amelia Rodriguez Notice Issued Date-Time: 10/19/2018 15:25 Notice Type: IM Discharge Notice Notice Delivered To: Patient Relationship to Patient: Shoe Repair Cobbler Name: Delivery Method: HAND - Hand Delivered Bianca Days: Prior Verbal Notification: Recipient Understood Notice: Yes Recipient Signature: Yes Med Rec Note Co-signed by Attending: Coverage Notice Comment: Reviewer: [id number] Amelia Rodriguez Notice Issued Date-Time: 10/20/2018 12:25 Notice Type: Patient Choice Letter Notice Delivered To: Family Member Relationship to Patient: Spouse Shoe Repair Cobbler Name: TERRENCE HERNANDEZ Delivery Method: HAND - Hand Delivered Bianca Days: Prior Verbal Notification: Recipient Understood Notice: Yes Recipient Signature: Yes Med Rec Note Co-signed by Attending: Coverage Notice Comment: Last DP export: 10/22/18 1:08 Patient Name: TRIP HERNANDEZ Page 97174 at 1417 All edits/amendments must be made on the electronic document DICTATION DATE: 10/22/181416 CAREER SERVICES REPRESENTATIVE: CLAUDIA 10/22/181416 RPT#: [id number] DC DATE: STATUS: ADM IN [facility] [address] [place] [address] END OF REPORT
--- NOTE | ~2018-10-16 | MORECARE ---
CASE MANAGEMENT DISCHARGE SUMMARY PATIENT: TRIP HERNANDEZ UNIT: [id number] ADM DATE: 10/16/18 AGE: 88 : 31 SEX: M ROOM/BED: D.0834 AUTHOR: OSCAR,DOC PHYSICIAN: REFERRING PHYSICIAN: HILLARY DUNNE MD DATE OF SERVICE: 10/20/18 Discharge Plan Patient Name: TRIP HERNANDEZ Facility: [facility]:[place] : 1930 Planned Disposition: Half-Way Facility Anticipated Discharge Date: 10/20/18 Discharge Date: Expected LOS: 4 Initial Reviewer: [id number] Initial Review Date: 10/19/2018 Generated: 10/20/18 4:11 pm Comments DCP- Discharge Planning Updated by [id number]: Santino Rodriguez on 10/20/18 2:[address] Patient Name: TRIP HERNANDEZ Encounter No: [id number] : 1930 Primary Insurance: MEDICARE A & B Anticipated DC Date: 10-20-2018 Planned Disposition: Half-Way Facility External Planned Provider: [facility] NURSING [facility] REHAB MEDICARE REHAB BED DCP follow-up note: MELISSA SPOKE TO PT'S SON, DEAN HERNANDEZ, AT [employer] [facility]. DEAN PROVIDED HIS PHONE NUMBER FOR CONTACT, . HE IS CONSIDERING TAKING PT HOME AND IF SO, WILL NEED A NEBULIZER, PT HAS HOME HEALTH WITH [facility] THAT WAS ARRANGED BY [facility] BUT WAS NOT ADMITTED BECAUSE PT CAME TO THE HOSPITAL PRIOR TO HOME HEALTH ADMISSION. DEAN WILL DISCUSS THIS WITH THE DOCTOR AND LET CM KNOW. MELISSA CALLED [facility] AT [phone], SPOKE TO MARTHA AND INFORMED HER THAT PT'S FAMILY MAY WANT REHAB OR MAY JUST GO HOME WITH HOME HEALTH, WE ARE WAITING ON FAMILY DECISION. CM WAITING ADMISSION DETERMINATION FROM [facility] N[facility]SING AND REHAB. CM WAITING ON PT TO DETERMINE IF FAMILY IS GOING TO HAVE PT GO TO REHAB AT [facility] OF HOME WITH [facility]. IF PT GOES HOME WITH HOME HEALTH, PRUDENCIO WILL NEED HOME HEALTH ORDERS. Santino Rodriguez CASE MAUREEN DCP- Discharge Planning Updated by [id number]: Santino Rodriguez on 10/20/18 12:[address] Patient Name: TRIP HERNANDEZ Encounter No: [id number] : 1930 Primary Insurance: MEDICARE A & B Anticipated DC Date: 10-20-2018 Planned Disposition: Half-Way Facility External Planned Provider: [facility] N[facility] RE[facility] MEDICARE REHAB BED DCP follow-up note: CM SPOKE TO MIGUEL ANGEL OF [facility] INPATIENT REHAB WHO INFORMED CM THAT SCREENING COMPLETED, PT IS NOT ABLE TO TOLERATE THREE HOURS OF PROGRESSIVE THERAPY PER DAY AND PRISON REHAB IS RECOMMENDED. CM SPOKE TO PT IN ROOM WHO IS TEARFUL, REPORTING HE IS LONELY AND WANTS HIS TO COME AND SEE HIM. CM CALLED PT'S , [place], ; CM INFORMED OF PT'S REQUEST, TERRENCE WILL BE HERE LATER TODAY; CM INFORMED PT. CM INFORMED BOTH PT AND SPOUSE THAT INPATIENT REHAB DECLINED AND RECOMMENDED PRISON. PT IS OK WITH RETURN TO [facility], PT'S SPOUSE ASKED THAT CM SEND REFERRAL FOR REHAB TO [facility]. CHOICE LETTER COMPLETED. CM CALLED [facility] AT [phone], SPOKE TO MARTHA WHO INFORMED CM THAT PT JUST LEFT REHAB A FEW DAYS AGO AND SHE WILL SCREEN FOR REHAB. CM FAXED REFERRAL TO [facility] AT [phone]. CM WAITING ADMISSION DETERMINATION FROM [facility] N[facility]SING AND REHAB. Santino Rodriguez, CASE MANAGEMENT DCP- Discharge Planning Updated by [id number]: Santino Rodriguez on 10/19/18 4:[address] Patient Name: TRIP HERNANDEZ Admission Status: ER Accout number: [id number] Admission Date: 10-16-2018 : 1930 Admission Diagnosis:PNEUMONITIS DUE TO INHALATION OF FOOD AND VOMIT Attending: HILLARY DUNNE Current LOS: 3 Anticipated DC Date: 10-20-2018 Planned Disposition: Inpatient Rehab Primary Insurance: MEDICARE A & B PLANNED EXTERNAL PROVIDER: [facility] INPATIENT REH[facility] Discharge Planning Comments: CM RECEIVED ORDER FOR INPATIENT REHAB PRESCREENING. CM MET WITH PT IN ROOM TO DISCUSS DISCHARGE PLANNING AND NEEDS. PT REPORTS LIVING AT HOME INDEPENDENTLY WITH SPOUSE. PT HAS NO MEDICAL EQUIPMENT AND NO OUTSIDE SERVICES ASSISTING IN THE HOME. CM DISCUSSED AVAILABILITY OF HOME HEALTH, REHAB SERVICES AND MEDICAL EQUIPMENT. PT WOULD LIKE REHAB AT [place], HE HAS BEEN THERE AND RECEIVED VERY GOOD REHAB BEFORE. PT REPORTS HE JUST GOT HOME FROM [facility] AND WAS HOME FOR ONLY ONE DAY BEFORE HAVING TROUBLE CATCHING HIS BREATH AND THOUGHT IT A GOOD IDEA TO COME TO THE HOSPITAL TO BE CHECKED OUT. PT WANTS REHAB IF THE DOCTOR RECOMMENDS IT. PT REPORTS FAMILY WILL PICK HIM UP FOR DISCHARGE HOME. IMPORTANT MESSAGE FROM MEDICARE PROVIDED AND EXPLAINED. CM WAITING INPATIENT REHAB PRESCREENING FROM [facility] INPATIENT REHAB. Laundry Laborer: Santino Rodriguez DCPIA - Discharge Planning Initial Assessment Updated by [id number]: Santino Rodriguez on 10/20/18 3:05 pm * Is the patient Alert and Oriented? Yes * How many steps to enter\exit or inside your home? RAMP * PCP DR. MANNING * Pharmacy [facility] ON [address] * Preadmission Environment Home with Family * ADLs Independent * Equipment None * Other Equipment NO MEDICAL EQUIPMENT PROVIDER PREFERENCE * List name and contact numbers for known caregivers / representatives who currently or will assist patient after discharge: TERRENCE HERNANDEZ, SPOUSE, * Verbal permission to speak to the caregivers and representatives has been obtained from the patient. Yes * Community resources currently utilized Home Health * Please name any agencies selected above. [facility], ARRANGED BY [facility] BUT NOT ADMITTED DUE TO PT'S ADMISSION TO HOSPITAL. * Additional services required to return to the preadmission environment? Yes * Can the patient safely return to the preadmission environment? Yes * Has this patient been hospitalized within the prior 30 days at any hospital? Yes Coverage Notice Reviewer: [id number] Amelia Rodriguez Notice Issued Date-Time: 10/19/2018 15:25 Notice Type: IM Discharge Notice Notice Delivered To: Patient Relationship to Patient: Aligning Checker Name: Delivery Method: HAND - Hand Delivered Bianca Days: Prior Verbal Notification: Recipient Understood Notice: Yes Recipient Signature: Yes Med Rec Note Co-signed by Attending: Coverage Notice Comment: Reviewer: [id number] Amelia Rodriguez Notice Issued Date-Time: 10/20/2018 12:25 Notice Type: Patient Choice Letter Notice Delivered To: Family Member Relationship to Patient: Spouse Aligning Checker Name: TERRENCE HERNANDEZ Delivery Method: HAND - Hand Delivered Bianca Days: Prior Verbal Notification: Recipient Understood Notice: Yes Recipient Signature: Yes Med Rec Note Co-signed by Attending: Coverage Notice Comment: Last DP export: 10/20/18 12:30 Patient Name: TRIP HERNANDEZ Page 48174 at 1511 All edits/amendments must be made on the electronic document DICTATION DATE: 10/20/181509 ROPEMAN: CLAUDIA 10/20/181509 RPT#: [id number] DC DATE: STATUS: ADM IN [facility] [address] [place] [address] END OF REPORT
--- NOTE | ~2018-10-16 | MORECARE ---
CASE MANAGEMENT DISCHARGE SUMMARY PATIENT: TRIP HERNANDEZ UNIT: [id number] ADM DATE: 10/16/18 AGE: 88 : 31 SEX: M ROOM/BED: D.3671 AUTHOR: OSCAR,DOC PHYSICIAN: REFERRING PHYSICIAN: HILLARY DUNNE MD DATE OF SERVICE: 10/22/18 Discharge Plan Patient Name: TRIP HERNANDEZ Facility: [facility]:[place] : 1930 Planned Disposition: Senior Living Facility Anticipated Discharge Date: 10/20/18 Discharge Date: Expected LOS: 4 Initial Reviewer: [id number] Initial Review Date: 10/19/2018 Generated: 10/22/18 3:08 pm Comments DCP- Discharge Planning Updated by [email or web address]: Santino Rodriguez on 10/20/18 2:[address] Patient Name: TRIP HERNANDEZ Encounter No: [id number] : 1930 Primary Insurance: MEDICARE A & B Anticipated DC Date: 10-20-2018 Planned Disposition: Senior Living Facility External Planned Provider: [facility] MEDICARE REHAB BED DCP follow-up note: MELISSA SPOKE TO PT'S SON, DEAN HERNANDEZ, AT [employer] [facility]. DEAN PROVIDED HIS PHONE NUMBER FOR CONTACT, . HE IS CONSIDERING TAKING PT HOME AND IF SO, WILL NEED A NEBULIZER, PT HAS HOME HEALTH WITH [facility] THAT WAS ARRANGED BY [facility] BUT WAS NOT ADMITTED BECAUSE PT CAME TO THE HOSPITAL PRIOR TO HOME HEALTH ADMISSION. DEAN WILL DISCUSS THIS WITH THE DOCTOR AND LET CM KNOW. MELISSA CALLED [facility] AT [phone], SPOKE TO MARTHA AND INFORMED HER THAT PT'S FAMILY MAY WANT REHAB OR MAY JUST GO HOME WITH HOME HEALTH, WE ARE WAITING ON FAMILY DECISION. CM WAITING ADMISSION DETERMINATION FROM [facility]. CM WAITING ON PT TO DETERMINE IF FAMILY IS GOING TO HAVE PT GO TO REHAB AT [facility] OF HOME WITH [facility]. IF PT GOES HOME WITH HOME HEALTH, [employer] WILL NEED HOME HEALTH ORDERS. Santino Rodriguez CASE MAUREEN DCP- Discharge Planning Updated by [id number]: Santino Rodriguez on 10/20/18 12:[address] Patient Name: TRIP HERNANDEZ Encounter No: [id number] : 1930 Primary Insurance: MEDICARE A & B Anticipated DC Date: 10-20-2018 Planned Disposition: Senior Living Facility External Planned Provider: [facility] MEDICARE REHAB BED DCP follow-up note: CM SPOKE TO MIGUEL ANGEL OF [facility] INPATIENT REHAB WHO INFORMED CM THAT SCREENING COMPLETED, PT IS NOT ABLE TO TOLERATE THREE HOURS OF PROGRESSIVE THERAPY PER DAY AND [facility] REHAB IS RECOMMENDED. CM SPOKE TO PT IN ROOM WHO IS TEARFUL, REPORTING HE IS LONELY AND WANTS HIS TO COME AND SEE HIM. CM CALLED PT'S , NADEEM, ; CM INFORMED OF PT'S REQUEST, TERRENCE WILL BE HERE LATER TODAY; CM INFORMED PT. CM INFORMED BOTH PT AND SPOUSE THAT INPATIENT REHAB DECLINED AND RECOMMENDED [facility]. PT IS OK WITH RETURN TO [facility], PT'S SPOUSE ASKED THAT CM SEND REFERRAL FOR REHAB TO [facility]. CHOICE LETTER COMPLETED. CM CALLED [facility] AT [phone], SPOKE TO MARTHA WHO INFORMED CM THAT PT JUST LEFT REHAB A FEW DAYS AGO AND SHE WILL SCREEN FOR REHAB. CM FAXED REFERRAL TO [facility] AT [phone]. CM WAITING ADMISSION DETERMINATION FROM [facility]. Santino Rodriguez, CASE MANAGEMENT DCP- Discharge Planning Updated by [email or web address]: Santino Rodriguez on 10/19/18 4:[address] Patient Name: TRIP HERNANDEZ Admission Status: ER Accout number: [id number] Admission Date: 10-16-2018 : 1930 Admission Diagnosis:PNEUMONITIS DUE TO INHALATION OF FOOD AND VOMIT Attending: HILLARY DUNNE Current LOS: 3 Anticipated DC Date: 10-20-2018 Planned Disposition: Inpatient Rehab Primary Insurance: MEDICARE A & B PLANNED EXTERNAL PROVIDER: [facility] INPATIENT REHAB Discharge Planning Comments: CM RECEIVED ORDER FOR INPATIENT REHAB PRESCREENING. CM MET WITH PT IN ROOM TO DISCUSS DISCHARGE PLANNING AND NEEDS. PT REPORTS LIVING AT HOME INDEPENDENTLY WITH SPOUSE. PT HAS NO MEDICAL EQUIPMENT AND NO OUTSIDE SERVICES ASSISTING IN THE HOME. CM DISCUSSED AVAILABILITY OF HOME HEALTH, REHAB SERVICES AND MEDICAL EQUIPMENT. PT WOULD LIKE REHAB AT [place], HE HAS BEEN THERE AND RECEIVED VERY GOOD REHAB BEFORE. PT REPORTS HE JUST GOT HOME FROM [facility] AND WAS HOME FOR ONLY ONE DAY BEFORE HAVING TROUBLE CATCHING HIS BREATH AND THOUGHT IT A GOOD IDEA TO COME TO THE HOSPITAL TO BE CHECKED OUT. PT WANTS REHAB IF THE DOCTOR RECOMMENDS IT. PT REPORTS FAMILY WILL PICK HIM UP FOR DISCHARGE HOME. IMPORTANT MESSAGE FROM MEDICARE PROVIDED AND EXPLAINED. CM WAITING INPATIENT REHAB PRESCREENING FROM [facility] INPATIENT REHAB. Library Associate: Santino Rodriguez DCPIA - Discharge Planning Initial Assessment Updated by [id number]: Santino Rodriguez on 10/22/18 2:02 pm * Is the patient Alert and Oriented? Yes * How many steps to enter\exit or inside your home? RAMP * PCP DR. MANNING * Pharmacy [facility] [address] * Preadmission Environment Home with Family * ADLs Independent * Equipment None * Other Equipment NO MEDICAL EQUIPMENT PROVIDER [employer] * List name and contact numbers for known caregivers / representatives who currently or will assist patient after discharge: DEAN HERNANDEZ, SON, TERRENCE HERNANDEZ, SPOUSE, * Verbal permission to speak to the caregivers and representatives has been obtained from the patient. Yes * Community resources currently utilized Home Health * Please name any agencies selected above. [facility], ARRANGED BY [facility] BUT NOT ADMITTED DUE TO PT'S ADMISSION TO HOSPITAL. * Additional services required to return to the preadmission environment? Yes * Can the patient safely return to the preadmission environment? Yes * Has this patient been hospitalized within the prior 30 days at any hospital? Yes Coverage Notice Reviewer: [id number] Amelia Rodriguez Notice Issued Date-Time: 10/19/2018 15:25 Notice Type: IM Discharge Notice Notice Delivered To: Patient Relationship to Patient: Acute Care Assistant Name: Delivery Method: HAND - Hand Delivered Bianca Days: Prior Verbal Notification: Recipient Understood Notice: Yes Recipient Signature: Yes Med Rec Note Co-signed by Attending: Coverage Notice Comment: Reviewer: [id number] Rodriguez Notice Issued Date-Time: 10/20/2018 12:25 Notice Type: Patient Choice Letter Notice Delivered To: Family Member Relationship to Patient: Spouse Acute Care Assistant Name: TERRENCE HERNANDEZ Delivery Method: HAND - Hand Delivered Bianca Days: Prior Verbal Notification: Recipient Understood Notice: Yes Recipient Signature: Yes Med Rec Note Co-signed by Attending: Coverage Notice Comment: Last DP export: 10/22/18 9:33 Patient Name: TRPI HERNANDEZ Page 23408 at 1408 All edits/amendments must be made on the electronic document DICTATION DATE: 10/22/181406 MISSION WORKER: CLAUDIA 10/22/181406 RPT#: [id number] DC DATE: STATUS: ADM IN [facility] [address] [place] [address] END OF REPORT
--- NOTE | ~2018-10-16 | MORECARE ---
CASE MANAGEMENT DISCHARGE SUMMARY PATIENT: TRIP HERNANDEZ UNIT: [id number] ADM DATE: 10/16/18 AGE: 88 : 31 SEX: M ROOM/BED: D.9082 AUTHOR: OSCAR,DOC PHYSICIAN: REFERRING PHYSICIAN: HILLARY DUNNE MD DATE OF SERVICE: 10/20/18 Discharge Plan Patient Name: TRIP HERNANDEZ Facility: [facility]:[place] : 1930 Planned Disposition: Assisted Facility Anticipated Discharge Date: 10/20/18 Discharge Date: Expected LOS: 4 Initial Reviewer: [id number] Initial Review Date: 10/19/2018 Generated: 10/20/18 2:30 pm Comments DCP- Discharge Planning Updated by [id number]: Santino Rodriguez on 10/20/18 12:[address] Patient Name: TRIP HERNANDEZ Encounter No: [id number] : 1930 Primary Insurance: MEDICARE A & B Anticipated DC Date: 10-20-2018 Planned Disposition: Assisted Facility External Planned Provider: [facility] MEDICARE REHAB BED DCP follow-up note: CM SPOKE TO MIGUEL ANGEL OF [facility] INPATIENT REHAB WHO INFORMED CM THAT SCREENING COMPLETED, PT IS NOT ABLE TO TOLERATE THREE HOURS OF PROGRESSIVE THERAPY PER DAY AND ALF REHAB IS RECOMMENDED. CM SPOKE TO PT IN ROOM WHO IS TEARFUL, REPORTING HE IS LONELY AND WANTS HIS TO COME AND SEE HIM. CM CALLED PT'S , NADEEM, ; CM INFORMED OF PT'S REQUEST, TERRENCE WILL BE HERE LATER TODAY; CM INFORMED PT. CM INFORMED BOTH PT AND SPOUSE THAT INPATIENT REHAB DECLINED AND RECOMMENDED ALF. PT IS OK WITH RETURN TO [facility], PT'S SPOUSE ASKED THAT CM SEND REFERRAL FOR REHAB TO [facility]. CHOICE LETTER COMPLETED. CM CALLED [facility] AT [phone], SPOKE TO MARTHA WHO INFORMED CM THAT PT JUST LEFT REHAB A FEW DAYS AGO AND SHE WILL SCREEN FOR REHAB. CM FAXED REFERRAL TO [facility] AT [phone]. CM WAITING ADMISSION DETERMINATION FROM [facility] N[facility]SING [facility]. GERMAN Robledo MANAGEMENT DCP- Discharge Planning Updated by [id number]: Santino Rodriguez on 10/19/18 4:[address] Patient Name: TRIP HERNANDEZ Admission Status: ER Accout number: [id number] Admission Date: 10-16-2018 : 1930 Admission Diagnosis:PNEUMONITIS DUE TO INHALATION OF FOOD AND VOMIT Attending: HILLARY DUNNE Current LOS: 3 Anticipated DC Date: 10-20-2018 Planned Disposition: Inpatient Rehab Primary Insurance: MEDICARE A & B PLANNED EXTERNAL PROVIDER: [facility] INPATIENT REHAB Discharge Planning Comments: CM RECEIVED ORDER FOR INPATIENT REHAB PRESCREENING. CM MET WITH PT IN ROOM TO DISCUSS DISCHARGE PLANNING AND NEEDS. PT REPORTS LIVING AT HOME INDEPENDENTLY WITH SPOUSE. PT HAS NO MEDICAL EQUIPMENT AND NO OUTSIDE SERVICES ASSISTING IN THE HOME. CM DISCUSSED AVAILABILITY OF HOME HEALTH, REHAB SERVICES AND MEDICAL EQUIPMENT. PT WOULD LIKE REHAB AT [place], HE HAS BEEN THERE AND RECEIVED VERY GOOD REHAB BEFORE. PT REPORTS [facility] AND WAS HOME FOR ONLY ONE DAY BEFORE HAVING TROUBLE CATCHING HIS BREATH AND THOUGHT IT A GOOD IDEA TO COME TO THE HOSPITAL TO BE CHECKED OUT. PT WANTS REHAB IF THE DOCTOR RECOMMENDS IT. PT REPORTS FAMILY WILL PICK HIM UP FOR DISCHARGE HOME. IMPORTANT MESSAGE FROM MEDICARE PROVIDED AND EXPLAINED. CM WAITING INPATIENT REHAB PRESCREENING FROM [facility] INPATIENT REH[facility]. Pediatric Social Worker: Santino Rodriguez DCPIA - Discharge Planning Initial Assessment Updated by [email or web address]: Santino Rodriguez on 10/19/18 5:12 pm * Is the patient Alert and Oriented? Yes * How many steps to enter\exit or inside your home? RAMP * PCP DR. MANNING * Pharmacy [facility] * Preadmission Environment Home with Family * ADLs Independent * Equipment None * Other Equipment NO MEDICAL EQUIPMENT PROVIDER [employer] * List name and contact numbers for known caregivers / representatives who currently or will assist patient after discharge: TERRENCE HERNANDEZ, SPOUSE, * Verbal permission to speak to the caregivers and representatives has been obtained from the patient. Yes * Community resources currently utilized None * Please name any agencies selected above. NONE * Additional services required to return to the preadmission environment? Yes * Can the patient safely return to the preadmission environment? Yes * Has this patient been hospitalized within the prior 30 days at any hospital? Yes Coverage Notice Reviewer: [id number] Rodriguez Notice Issued Date-Time: 10/19/2018 15:25 Notice Type: IM Discharge Notice Notice Delivered To: Patient Relationship to Patient: Automotive Parts Manager Name: Delivery Method: HAND - Hand Delivered Bianca Days: Prior Verbal Notification: Recipient Understood Notice: Yes Recipient Signature: Yes Med Rec Note Co-signed by Attending: Coverage Notice Comment: Reviewer: [id number] Rodriguez Notice Issued Date-Time: 10/20/2018 12:25 Notice Type: Patient Choice Letter Notice Delivered To: Family Member Relationship to Patient: Spouse Automotive Parts Manager Name: TERRENCE HERNANDEZ Delivery Method: HAND - Hand Delivered Bianca Days: Prior Verbal Notification: Recipient Understood Notice: Yes Recipient Signature: Yes Med Rec Note Co-signed by Attending: Coverage Notice Comment: Last DP export: 10/20/18 12:12 Patient Name: TRIP HERNANDEZ Page 14678 at 1330 All edits/amendments must be made on the electronic document DICTATION DATE: 10/20/18 1330 MANAGER ASSET: CLAUDIA 10/20/18 1330 RPT#: [id number] DC DATE: STATUS: ADM IN [facility] [address] [place] [address] END OF REPORT
--- NOTE | ~2018-10-16 | MORECARE ---
CASE MANAGEMENT DISCHARGE SUMMARY PATIENT: TRIP HERNANDEZ UNIT: [id number] ADM DATE: 10/16/18 AGE: 88 : 31 SEX: M ROOM/BED: D.2482 AUTHOR: OSCAR,DOC PHYSICIAN: REFERRING PHYSICIAN: HILLARY DUNNE MD DATE OF SERVICE: 10/22/18 Discharge Plan Patient Name: TRIP HERNANDEZ Facility: [facility]:[place] : 1930 Planned Disposition: Home with Home Health Anticipated Discharge Date: 10/22/18 Discharge Date: Expected LOS: 6 Initial Reviewer: [id number] Initial Review Date: 10/19/2018 Generated: 10/22/18 4:25 pm Comments DCP- Discharge Planning Updated by [email or web address]: Santino Rodriguez on 10/22/18 2:[address] Patient Name: TRIP HERNANDEZ Encounter No: [id number] : 1930 Primary Insurance: MEDICARE A & B Anticipated DC Date: 10-22-2018 Planned Disposition: Home with Home Health External Planned Provider: [facility] DCP follow-up note: MELISSA SPOKE TO PT'S SON, DEAN HERNANDEZ, AT [employer] [facility] DEAN PROVIDED HIS PHONE NUMBER FOR CONTACT, . THEY ARE TAKING PT HOME AND WOULD LIKE A NEBULIZER FROM [employer]; THEY WANT HOME HEALTH WITH [facility] WHICH WAS PREVIOUSLY ARRANGED BY [facility]. CM SPOKE TO PT IN ROOM WHO IS IN AGREEMENT WITH PLAN. IMPORTANT MESSAGE FROM MEDICARE PROVIDED AND EXPLAINED. CM CALLED [employer], , SPOKE TO BUDYD WHO REPORTS PT'S SON HAS RENTED OXYGEN E TANK FROM THEM TO USE WITH PT NEEDED. THEY WILL ARRANGE NEBULIZER DELIVER WITH PT'S SON. CM FAXED REFERRAL FOR NEBULIZER TO [employer] AT [phone]. CM RECEIVED CALL A SHORT TIME LATER WHO INFORMED CM THAT PT'S CHF DIAGNOSIS DID NOT QUALIFY FOR INSURANCE TO PAY FOR NEBULIZER AND PT'S SON HAS OPTED FOR PRIVATE PURCHASE OF NEBULIZER AND SUPPLIES. MELISSA CALLED [employer], , SPOKE TO SONA WHO TOOK REFERRAL INFORMATION AND PLACED PT ON SCHEDULE FOR THURSDAY ADMIT. CM FAXED REFERRAL INFORMATION TO [facility] AT [phone]. PT NOTIFIED WHO DENIES FURHTER NEEDS. CM CALLED PT'S SON, DEAN, WHO REPORTS HE AND HIS WILL MEDICAL TERMINOLOGIST PT SHORTLY AND DENIED FURTHER NEEDS. GERMAN Robledo MANGEMENT DCP- Discharge Planning Updated by [id number]: Santino Rodriguez on 10/20/18 2:[address] Patient Name: TRIP HERNANDEZ Encounter No: [id number] : 1930 Primary Insurance: MEDICARE A & B Anticipated DC Date: 10-20-2018 Planned Disposition: Fpc Facility External Planned Provider: [facility] MEDICARE REHAB BED DCP follow-up note: CM SPOKE TO PT'S SON, DEAN HERNANDEZ, AT [employer] [facility] DEAN PROVIDED HIS PHONE NUMBER FOR CONTACT, . HE IS CONSIDERING TAKING PT HOME AND IF SO, WILL NEED A NEBULIZER, PT HAS HOME HEALTH WITH [facility] THAT WAS ARRANGED BY [facility] BUT WAS NOT ADMITTED BECAUSE PT CAME TO THE HOSPITAL PRIOR TO HOME HEALTH ADMISSION. DEAN WILL DISCUSS THIS WITH THE DOCTOR AND LET CM KNOW. CM CALLED [facility] AT [phone], SPOKE TO MARTHA AND INFORMED HER THAT PT'S FAMILY MAY WANT REHAB OR MAY JUST GO HOME WITH HOME HEALTH, WE ARE WAITING ON FAMILY DECISION. CM WAITING ADMISSION DETERMINATION FROM [facility] NURSING [facility] RE[facility]. CM WAITING ON PT TO DETERMINE IF FAMILY IS GOING TO HAVE PT GO TO REHAB AT [facility] OF HOME WITH [facility]. IF PT GOES HOME WITH HOME HEALTH, [facility] WILL NEED HOME HEALTH ORDERS. Santino Rodriguez, CASE MANAGEMENT DCP- Discharge Planning Updated by [email or web address]: Santino Rodriguez on 10/20/18 12:[address] Patient Name: TRIP HERNANDEZ Encounter No: [id number] : 1930 Primary Insurance: MEDICARE A & B Anticipated DC Date: 10-20-2018 Planned Disposition: Fpc Facility External Planned Provider: [facility] MEDICARE REHAB BED DCP follow-up note: CM SPOKE TO MIGUEL ANGEL OF [facility] INPATIENT REHAB WHO INFORMED CM THAT SCREENING COMPLETED, PT IS NOT ABLE TO TOLERATE THREE HOURS OF PROGRESSIVE THERAPY PER DAY AND HALFWAY REHAB IS RECOMMENDED. CM SPOKE TO PT IN ROOM WHO IS TEARFUL, REPORTING HE IS LONELY AND WANTS HIS TO COME AND SEE HIM. CM CALLED PT'S , NADEEM, ; CM INFORMED OF PT'S REQUEST, TERRENCE WILL BE HERE LATER TODAY; CM INFORMED PT. CM INFORMED BOTH PT AND SPOUSE THAT INPATIENT REHAB DECLINED AND RECOMMENDED HALFWAY. PT IS OK WITH RETURN TO [facility], PT'S SPOUSE ASKED THAT CM SEND REFERRAL FOR REHAB TO [facility]. CHOICE LETTER COMPLETED. CM CALLED [facility] AT [phone], SPOKE TO MARTHA WHO INFORMED CM THAT PT JUST LEFT REHAB A FEW DAYS AGO AND SHE WILL SCREEN FOR REHAB. CM FAXED REFERRAL TO [facility] AT [phone]. CM WAITING ADMISSION DETERMINATION FROM [facility] N[facility]SING [facility] RE[facility]. Santino Rodriguez, CASE MANAGEMENT DCP- Discharge Planning Updated by [id number]: Santino Rodriguez on 10/19/18 4:[address] Patient Name: TRIP HERNANDEZ Admission Status: ER Accout number: [id number] Admission Date: 10-16-2018 : 1930 Admission Diagnosis:PNEUMONITIS DUE TO INHALATION OF FOOD AND VOMIT Attending: HILLARY DUNNE Current LOS: 3 Anticipated DC Date: 10-20-2018 Planned Disposition: Inpatient Rehab Primary Insurance: MEDICARE A & B PLANNED EXTERNAL PROVIDER: [facility] INPATIENT REHAB Discharge Planning Comments: CM RECEIVED ORDER FOR INPATIENT REHAB PRESCREENING. CM MET WITH PT IN ROOM TO DISCUSS DISCHARGE PLANNING AND NEEDS. PT REPORTS LIVING AT HOME INDEPENDENTLY WITH SPOUSE. PT HAS NO MEDICAL EQUIPMENT AND NO OUTSIDE SERVICES ASSISTING IN THE HOME. CM DISCUSSED AVAILABILITY OF HOME HEALTH, REHAB SERVICES AND MEDICAL EQUIPMENT. PT WOULD LIKE REHAB AT [place], HE HAS BEEN THERE AND RECEIVED VERY GOOD REHAB BEFORE. PT REPORTS HE JUST [facility] AND WAS HOME FOR ONLY ONE DAY BEFORE HAVING TROUBLE CATCHING HIS BREATH AND THOUGHT IT A GOOD IDEA TO COME TO THE HOSPITAL TO BE CHECKED OUT. PT WANTS REHAB IF THE DOCTOR RECOMMENDS IT. PT REPORTS FAMILY WILL PICK HIM UP FOR DISCHARGE HOME. IMPORTANT MESSAGE FROM MEDICARE PROVIDED AND EXPLAINED. CM WAITING INPATIENT REHAB PRESCREENING FROM [facility] INPATIENT REHAB. Ornamenter: Santino Rodriguez DCPIA - Discharge Planning Initial Assessment Updated by [id number]: Santino Rodriguez on 10/22/18 3:00 pm * Is the patient Alert and Oriented? Yes * How many steps to enter\exit or inside your home? RAMP * PCP DR. MANNING * Pharmacy [facility] [address] * Preadmission Environment Home with Family * ADLs Independent * Equipment None * Other Equipment NO MEDICAL EQUIPMENT PROVIDER PREFERENCE * List name and contact numbers for known caregivers / representatives who currently or will assist patient after discharge: DEAN HERNANDEZ, SON, , CELL [phone] TERRENCE HERNANDEZ, SPOUSE, * Verbal permission to speak to the caregivers and representatives has been obtained from the patient. Yes * Community resources currently utilized Home Health * Please name any agencies selected above. [facility], AR[facility]ANGED BY [facility] BUT NOT ADMITTED DUE TO PT'S ADMISSION TO HOSPITAL. * Additional services required to return to the preadmission environment? Yes * Can the patient safely return to the preadmission environment? Yes * Has this patient been hospitalized within the prior 30 days at any hospital? Yes Coverage Notice Reviewer: [id number] Amelia Rodriguez Notice Issued Date-Time: 10/19/2018 15:25 Notice Type: IM Discharge Notice Notice Delivered To: Patient Relationship to Patient: Spa Coordinator Name: Delivery Method: HAND - Hand Delivered Bianca Days: Prior Verbal Notification: Recipient Understood Notice: Yes Recipient Signature: Yes Med Rec Note Co-signed by Attending: Coverage Notice Comment: Reviewer: [id number] Rodriguez Notice Issued Date-Time: 10/20/2018 12:25 Notice Type: Patient Choice Letter Notice Delivered To: Family Member Relationship to Patient: Spouse Spa Coordinator Name: TERRENCE HERNANDEZ Delivery Method: HAND - Hand Delivered Bianca Days: Prior Verbal Notification: Recipient Understood Notice: Yes Recipient Signature: Yes Med Rec Note Co-signed by Attending: Coverage Notice Comment: Reviewer: [id number] Rodriguez Notice Issued Date-Time: 10/22/2018 12:24 Notice Type: IM Discharge Notice Notice Delivered To: Patient Relationship to Patient: Spa Coordinator Name: Delivery Method: HAND - Hand Delivered Bianca Days: Prior Verbal Notification: Recipient Understood Notice: Yes Recipient Signature: Yes Med Rec Note Co-signed by Attending: Coverage Notice Comment: Last DP export: 10/22/18 2:18 Patient Name: TRIP HERNANDEZ Page 74569 at 1525 All edits/amendments must be made on the electronic document DICTATION DATE: 10/22/181523 GAS COMPRESSOR TURBINE OPERATOR: CLAUDIA 10/22/181523 RPT#: [id number] DC DATE: STATUS: ADM IN [facility] [address] [place] [address] END OF REPORT
--- NOTE | ~2018-10-16 | MORECARE ---
CASE MANAGEMENT DISCHARGE SUMMARY PATIENT: TRIP HERNANDEZ UNIT: [id number] ADM DATE: 10/16/18 AGE: 88 : 31 SEX: M ROOM/BED: D.2005 AUTHOR: OSCARDOC PHYSICIAN: REFERRING PHYSICIAN: HILLARY DUNNE MD DATE OF SERVICE: 10/22/18 Discharge Plan Patient Name: TRIP HERNANDEZ Facility: [facility]:[place] : 1930 Planned Disposition: Home Anticipated Discharge Date: 10/22/18 Discharge Date: Expected LOS: 6 Initial Reviewer: [email or web address] Initial Review Date: 10/19/2018 Generated: 10/22/18 3:58 pm Comments DCP- Discharge Planning Updated by [id number]: Santino Rodriguez on 10/20/18 2:[address] Patient Name: TRIP HERNANDEZ Encounter No: [id number] : 1930 Primary Insurance: MEDICARE A & B Anticipated DC Date: 10-20-2018 Planned Disposition: [facility] Facility External Planned Provider: [facility] MEDICARE REHAB BED DCP follow-up note: MELISSA SPOKE TO PT'S SON, DEAN HERNANDEZ, AT [employer]. DEAN PROVIDED HIS PHONE NUMBER FOR CONTACT, . HE IS CONSIDERING TAKING PT HOME AND IF SO, WILL NEED A NEBULIZER, PT HAS HOME HEALTH WITH [facility] THAT WAS ARRANGED BY [facility] BUT WAS NOT ADMITTED BECAUSE PT CAME TO THE HOSPITAL PRIOR TO HOME HEALTH ADMISSION. DEAN WILL DISCUSS THIS WITH THE DOCTOR AND LET CM KNOW. MELISSA CALLED [facility] AT [phone], SPOKE TO MARTHA AND INFORMED HER THAT PT'S FAMILY MAY WANT REHAB OR MAY JUST GO HOME WITH HOME HEALTH, WE ARE WAITING ON FAMILY DECISION. CM WAITING ADMISSION DETERMINATION FROM [facility]. CM WAITING ON PT TO DETERMINE IF FAMILY IS GOING TO HAVE PT GO TO REHAB AT [facility] OF HOME WITH [facility]. IF PT GOES HOME WITH HOME HEALTH, [facility] WILL NEED HOME HEALTH ORDERS. GERMAN Robledo DCP- Discharge Planning Updated by [id number]: Santino Rodriguez on 10/20/18 12:[address] Patient Name: TRIP HERNANDEZ Encounter No: [id number] : 1930 Primary Insurance: MEDICARE A & B Anticipated DC Date: 10-20-2018 Planned Disposition: [facility] Facility External Planned Provider: [facility] MEDICARE REHAB BED DCP follow-up note: CM SPOKE TO MIGUEL ANGEL OF [facility] WHO INFORMED CM THAT SCREENING COMPLETED, PT IS NOT ABLE TO TOLERATE THREE HOURS OF PROGRESSIVE THERAPY PER DAY AND [facility] REHAB IS RECOMMENDED. CM SPOKE TO PT IN ROOM WHO IS TEARFUL, REPORTING HE IS LONELY AND WANTS HIS TO COME AND SEE HIM. CM CALLED PT'S , [place], ; CM INFORMED OF PT'S REQUEST, TERRENCE WILL BE HERE LATER TODAY; CM INFORMED PT. CM INFORMED BOTH PT AND SPOUSE THAT INPATIENT REHAB DECLINED AND RECOMMENDED [facility]. PT IS OK WITH RETURN TO [facility], PT'S SPOUSE ASKED THAT CM SEND REFERRAL FOR REHAB TO [facility]. CHOICE LETTER COMPLETED. CM CALLED [facility] AT [phone], SPOKE TO MARTHA WHO INFORMED CM THAT PT JUST LEFT REHAB A FEW DAYS AGO AND SHE WILL SCREEN FOR REHAB. CM FAXED REFERRAL TO [facility] AT [phone]. CM WAITING ADMISSION DETERMINATION FROM [facility]. Santino Rodriguez, CASE MANAGEMENT DCP- Discharge Planning Updated by [id number]: Santino Rodriguez on 10/19/18 4:[address] Patient Name: TRIP HERNANDEZ Admission Status: ER Accout number: [id number] Admission Date: 10-16-2018 : 1930 Admission Diagnosis:PNEUMONITIS DUE TO INHALATION OF FOOD AND VOMIT Attending: HILLARY DUNNE Current LOS: 3 Anticipated DC Date: 10-20-2018 Planned Disposition: Inpatient Rehab Primary Insurance: MEDICARE A & B PLANNED EXTERNAL PROVIDER: [facility] Discharge Planning Comments: CM RECEIVED ORDER FOR INPATIENT REHAB PRESCREENING. CM MET WITH PT IN ROOM TO DISCUSS DISCHARGE PLANNING AND NEEDS. PT REPORTS LIVING AT HOME INDEPENDENTLY WITH SPOUSE. PT HAS NO MEDICAL EQUIPMENT AND NO OUTSIDE SERVICES ASSISTING IN THE HOME. CM DISCUSSED AVAILABILITY OF HOME HEALTH, REHAB SERVICES AND MEDICAL EQUIPMENT. PT WOULD LIKE REHAB AT [facility], HE HAS BEEN THERE AND RECEIVED VERY GOOD REHAB BEFORE. PT REPORTS HE JUST GOT HOME FROM [facility] AND WAS HOME FOR ONLY ONE DAY BEFORE HAVING TROUBLE CATCHING HIS BREATH AND THOUGHT IT A GOOD IDEA TO COME TO THE HOSPITAL TO BE CHECKED OUT. PT WANTS REHAB IF THE DOCTOR RECOMMENDS IT. PT REPORTS FAMILY WILL PICK HIM UP FOR DISCHARGE HOME. IMPORTANT MESSAGE FROM MEDICARE PROVIDED AND EXPLAINED. CM WAITING INPATIENT REHAB PRESCREENING FROM [facility]. Philatelic Consultant: Santino Rodriguez DCPIA - Discharge Planning Initial Assessment Updated by [email or web address]: Santino Rodriguez on 10/22/18 2:02 pm * Is the patient Alert and Oriented? Yes * How many steps to enter\exit or inside your home? RAMP * PCP DR. MANNIGN * [facility] [address] * Preadmission Environment Home with Family * ADLs Independent * Equipment None * Other Equipment NO MEDICAL EQUIPMENT PROVIDER [employer] * List name and contact numbers for known caregivers / representatives who currently or will assist patient after discharge: DEAN HERNANDEZ, SON, TERRENCE HERNANDEZ, SPOUSE, * Verbal permission to speak to the caregivers and representatives has been obtained from the patient. Yes * Community resources currently utilized Home Health * Please name any agencies selected above. [facility], ARRANGED BY [facility] BUT NOT ADMITTED DUE TO PT'S ADMISSION TO HOSPITAL. * Additional services required to return to the preadmission environment? Yes * Can the patient safely return to the preadmission environment? Yes * Has this patient been hospitalized within the prior 30 days at any hospital? Yes External Providers [facility] Next Contact Date: 10/22/2018 Service Request Date: Service Type: Resolution: Reviewer: Comments: Coverage Notice Reviewer: [id number] Amelia Rodriguez Notice Issued Date-Time: 10/19/2018 15:25 Notice Type: IM Discharge Notice Notice Delivered To: Patient Relationship to Patient: Pattern Puncher Name: Delivery Method: HAND - Hand Delivered Bianca Days: Prior Verbal Notification: Recipient Understood Notice: Yes Recipient Signature: Yes Med Rec Note Co-signed by Attending: Coverage Notice Comment: Reviewer: [id number] Amelia Rodriguez Notice Issued Date-Time: 10/20/2018 12:25 Notice Type: Patient Choice Letter Notice Delivered To: Family Member Relationship to Patient: Spouse Pattern Puncher Name: TERRENCE HERNANDEZ Delivery Method: HAND - Hand Delivered Bianca Days: Prior Verbal Notification: Recipient Understood Notice: Yes Recipient Signature: Yes Med Rec Note Co-signed by Attending: Coverage Notice Comment: Last DP export: 10/22/18 1:17 Patient Name: TRIP HERNANDEZ Page [id number] at 1458 All edits/amendments must be made on the electronic document DICTATION DATE: 10/22/181456 LINUX NETWORK ADMINISTRATOR: CLAUDIA 10/22/181456 RPT#: [id number] DC DATE: STATUS: ADM IN [facility] [address] [place] [address] END OF REPORT
[~2018-10-16 14:36] MED LIST changes: +ALDACTONE25 MG PO; +ELIQUIS2.5 MG PO; +RANITIDINE HCL150 M1 PO
[2018-10-16 15:31] LABS: BASOPHILS 0.3 % (0-2); EOSINOPHILS 0.9 % (0-7); HEMATOCRIT 42.8 % (42.0-54.0); HEMOGLOBIN 14.2 g/dL (13.5-17.5); IMMATURE GRANULOCYTES 0.1 % (0-5); LYMPHOCYTES 22.1 % (15-50); MCH 30.5 pg (26.0-34.0); MCHC 33.2 g/dL (31.0-37.0); MCV 91.8 fL (80.0-100.0); MEAN PLATELET VOLUME 11.2 fL (7.4-10.4); MONOCYTES 8.5 % (2-11); NEUTROPHILS 68.1 % (40-80); RBC 4.66 10x6/uL (4.20-6.10); RDW 16.4 % (11.5-14.5); WBC 7.7 10x3/uL (4.8-10.8)
[2018-10-16 15:32] LABS: PLATELET COUNT 94 10x3/uL (130-400)
[2018-10-16 15:50] LABS: ALBUMIN 4.2 g/dL (3.4-5.0); ANION GAP 17.3 mmol/L (8-16); BILIRUBIN - TOTAL 0.61 mg/dL (0.2-1.3); CALCIUM 9.3 mg/dL (8.5-10.1); CARBON DIOXIDE 22.7 mmol/L (21.0-32.0); CREATININE - SERUM 1.9 mg/dL (0.6-1.3); PROTEIN - SERUM 7.3 g/dL (6.4-8.2)
[2018-10-16 16:00] VITALS: BP 126/84
[2018-10-16 16:21] LABS: MAGNESIUM - SERUM 2.5 mg/dL (1.8-2.4)
[2018-10-16 18:04] VITALS: BP 120/47; BMI 23.0
[2018-10-16] MEDS ORDERED: K-DUR20 MEQ PO (19:37)
[2018-10-16] MEDS ORDERED: LASIX40 MG PO (19:38)
[2018-10-16] MEDS ORDERED: ALDACTONE25 MG PO (19:39)
[2018-10-16 21:06] VITALS: BP 101/47
[2018-10-17] VITALS: BP 95/42
[2018-10-17 04:59] VITALS: BP 103/43
[2018-10-17 09:24] VITALS: BP 127/45
[2018-10-17 13:28] VITALS: BP 104/48
[2018-10-17 16:47] VITALS: BP 138/51
[2018-10-17 20:00] VITALS: BP 111/42
[2018-10-18 04:00] VITALS: BP 106/90
[2018-10-18 06:51] LABS: BASOPHILS 0.3 % (0-2); EOSINOPHILS 0.7 % (0-7); HEMATOCRIT 42.8 % (42.0-54.0); HEMOGLOBIN 14.1 g/dL (13.5-17.5); IMMATURE GRANULOCYTES 0.1 % (0-5); LYMPHOCYTES 20.4 % (15-50); MCH 30.3 pg (26.0-34.0); MCHC 32.9 g/dL (31.0-37.0); MCV 91.8 fL (80.0-100.0); MEAN PLATELET VOLUME 11.3 fL (7.4-10.4); MONOCYTES 8.8 % (2-11); NEUTROPHILS 69.7 % (40-80); PLATELET COUNT 93 10x3/uL (130-400); RBC 4.66 10x6/uL (4.20-6.10); RDW 16.5 % (11.5-14.5); WBC 7.4 10x3/uL (4.8-10.8)
[2018-10-18 07:05] LABS: ANION GAP 16.6 mmol/L (8-16); CALCIUM 9.2 mg/dL (8.5-10.1); CARBON DIOXIDE 24.8 mmol/L (21.0-32.0); POTASSIUM - SERUM 4.4 mmol/L (3.5-5.1)
[2018-10-18 10:48] VITALS: BP 122/81
[2018-10-18 13:04] VITALS: Ht 180.3 cm; Wt 75.6 kg
[2018-10-18 13:38] VITALS: BP 97/41
[2018-10-18 15:53] VITALS: BP 102/42
[2018-10-18 19:45] VITALS: BP 114/34
[2018-10-18 23:35] VITALS: BP 106/48
[2018-10-19 03:30] VITALS: BP 107/55
[2018-10-19 04:45] LABS: BASOPHILS 0.2 % (0-2); EOSINOPHILS 1.1 % (0-7); HEMATOCRIT 38.6 % (42.0-54.0); HEMOGLOBIN 12.8 g/dL (13.5-17.5); IMMATURE GRANULOCYTES 0.5 % (0-5); LYMPHOCYTES 22.3 % (15-50); MCHC 33.2 g/dL (31.0-37.0); MCV 90.4 fL (80.0-100.0); MEAN PLATELET VOLUME 11.7 fL (7.4-10.4); MONOCYTES 10.9 % (2-11); PLATELET COUNT 84 10x3/uL (130-400); RBC 4.27 10x6/uL (4.20-6.10); RDW 16.1 % (11.5-14.5); WBC 6.2 10x3/uL (4.8-10.8)
[2018-10-19 05:04] LABS: ANION GAP 14.3 mmol/L (8-16); CALCIUM 9.2 mg/dL (8.5-10.1); CARBON DIOXIDE 26.8 mmol/L (21.0-32.0); POTASSIUM - SERUM 4.1 mmol/L (3.5-5.1)
[2018-10-19 08:47] VITALS: BP 108/51
[2018-10-19 11:42] VITALS: BP 112/58
[2018-10-19 15:07] VITALS: BP 112/44
[2018-10-19 21:41] VITALS: BP 107/48
[2018-10-20 01:16] VITALS: BP 101/80
[2018-10-20 05:50] VITALS: BP 98/45
[2018-10-20 06:21] LABS: ANION GAP 15.3 mmol/L (8-16); CALCIUM 8.7 mg/dL (8.5-10.1); CARBON DIOXIDE 24.7 mmol/L (21.0-32.0); CREATININE - SERUM 2.2 mg/dL (0.6-1.3)
[2018-10-20 06:28] LABS: BASOPHILS 0.1 % (0-2); EOSINOPHILS 0.7 % (0-7); HEMATOCRIT 39.3 % (42.0-54.0); HEMOGLOBIN 13.2 g/dL (13.5-17.5); IMMATURE GRANULOCYTES 0.3 % (0-5); LYMPHOCYTES 18.2 % (15-50); MCH 30.2 pg (26.0-34.0); MCHC 33.6 g/dL (31.0-37.0); MCV 89.9 fL (80.0-100.0); MEAN PLATELET VOLUME 11.8 fL (7.4-10.4); MONOCYTES 9.9 % (2-11); NEUTROPHILS 70.8 % (40-80); PLATELET COUNT 84 10x3/uL (130-400); RBC 4.37 10x6/uL (4.20-6.10); RDW 15.9 % (11.5-14.5); WBC 7.1 10x3/uL (4.8-10.8)
[2018-10-20 08:01] VITALS: BP 119/43
[2018-10-20 11:23] VITALS: BP 117/50
[2018-10-20 15:39] VITALS: BP 97/49
[2018-10-20 21:07] VITALS: BP 100/49
[2018-10-21 00:42] VITALS: BP 106/49
[2018-10-21 04:51] LABS: BASOPHILS 0.3 % (0-2); EOSINOPHILS 0.5 % (0-7); HEMATOCRIT 37.3 % (42.0-54.0); HEMOGLOBIN 12.7 g/dL (13.5-17.5); IMMATURE GRANULOCYTES 0.3 % (0-5); LYMPHOCYTES 17.6 % (15-50); MCH 30.5 pg (26.0-34.0); MCV 89.4 fL (80.0-100.0); MEAN PLATELET VOLUME 11.4 fL (7.4-10.4); MONOCYTES 10.9 % (2-11); NEUTROPHILS 70.4 % (40-80); PLATELET COUNT 73 10x3/uL (130-400); RBC 4.17 10x6/uL (4.20-6.10); WBC 7.8 10x3/uL (4.8-10.8)
[2018-10-21 04:59] LABS: ANION GAP 16.4 mmol/L (8-16); CALCIUM 8.9 mg/dL (8.5-10.1); CARBON DIOXIDE 24.8 mmol/L (21.0-32.0); CREATININE - SERUM 2.3 mg/dL (0.6-1.3); POTASSIUM - SERUM 4.2 mmol/L (3.5-5.1)
[2018-10-21 05:17] VITALS: BP 112/55
[2018-10-21 07:56] VITALS: BP 120/63
[2018-10-21 12:05] VITALS: BP 105/45
[2018-10-21 15:04] VITALS: BP 95/37
[2018-10-21 21:03] VITALS: BP 94/47
[2018-10-22 01:12] VITALS: BP 99/46
[2018-10-22 04:38] VITALS: BP 93/47
[2018-10-22 05:20] LABS: BASOPHILS 0.3 % (0-2); EOSINOPHILS 1.3 % (0-7); HEMATOCRIT 34.8 % (42.0-54.0); HEMOGLOBIN 11.8 g/dL (13.5-17.5); IMMATURE GRANULOCYTES 0.4 % (0-5); LYMPHOCYTES 17.9 % (15-50); MCH 30.1 pg (26.0-34.0); MCHC 33.9 g/dL (31.0-37.0); MCV 88.8 fL (80.0-100.0); MEAN PLATELET VOLUME 11.7 fL (7.4-10.4); MONOCYTES 12.1 % (2-11); PLATELET COUNT 64 10x3/uL (130-400); RBC 3.92 10x6/uL (4.20-6.10); WBC 6.8 10x3/uL (4.8-10.8)
[2018-10-22 05:27] LABS: ANION GAP 15.2 mmol/L (8-16); CALCIUM 8.9 mg/dL (8.5-10.1); CARBON DIOXIDE 23.8 mmol/L (21.0-32.0); CREATININE - SERUM 2.1 mg/dL (0.6-1.3)
[2018-10-22 08:00] VITALS: BP 108/37
[2018-10-22 11:19] VITALS: BP 95/43
[2018-10-22] MEDS ORDERED: IPRAT-ALBUT 0.5-3 ML UPD (11:47)
== END 2018-10-22 16:33 | disposition home health service (06) | DRG 177 ==
LOC: D.ER 14:36 → D.M2 17:28
PROVIDERS: Emergency Medicine; Internal Medicine Nephrology
DX: J69.0 Pneumonitis due to inhalation of food and vomit (principal); I50.33 Acute on chronic diastolic (congestive) heart failure; I13.0 Hypertensive heart and chronic kidney disease with heart failure and stage 1 through stage 4 chronic kidney disease, or unspecified chronic kidney disease; N17.9 Acute kidney failure, unspecified; E87.1 Hypo-osmolality and hyponatremia; N18.9 Chronic kidney disease, unspecified; I08.0 Rheumatic disorders of both mitral and aortic valves; E78.5 Hyperlipidemia, unspecified; I48.91 Unspecified atrial fibrillation; D64.9 Anemia, unspecified; D69.6 Thrombocytopenia, unspecified; K21.9 Gastro-esophageal reflux disease without esophagitis; I25.10 Atherosclerotic heart disease of native coronary artery without angina pectoris; Z95.1 Presence of aortocoronary bypass graft; Z95.5 Presence of coronary angioplasty implant and graft

== ENCOUNTER 2018-11-09 17:34 | Inpatient (IN) | payer MEDICARE, OTHER ==
[~2018-11-09] VITALS: Ht 180.3 cm; Wt 102.3 kg
--- NOTE | ~2018-11-09 | MORECARE ---
CASE MANAGEMENT DISCHARGE SUMMARY PATIENT: TRIP HERNANDEZ UNIT: [id number] ADM DATE: 11/09/18 AGE: 88 : 31 SEX: M ROOM/BED: D.3481 AUTHOR: BELÉN MOORE PHYSICIAN: REFERRING PHYSICIAN: WILMER SMART MD DATE OF SERVICE: 11/11/18 Discharge Plan Patient Name: TRIP HERNANDEZ Facility: [facility]:[place] : 1930 Planned Disposition: Home with Home Health Anticipated Discharge Date: 11/11/18 Discharge Date: Expected LOS: 2 Initial Reviewer: [id number] Initial Review Date: 11/11/2018 Generated: 11/11/18 3:49 pm Comments DCP- Discharge Planning Updated by [id number]: Santino Rodriguez on 11/11/18 1:[address] Patient Name: TRIP HERNANDEZ Admission Status: ER Accout number: [id number] Admission Date: 11-09-2018 : 1930 Admission Diagnosis:SHORTNESS OF BREATH Attending: WILMER SMART Current LOS: 2 Anticipated DC Date: 11-11-2018 Planned Disposition: Home with Home Health Primary Insurance: MEDICARE A & B PLANNED EXTERNAL PROVIDER: [facility] Discharge Planning Comments: CM MET WITH PT AND SPOUSE IN ROOM TO DISCUSS DISCHARGE PLANNING AND NEEDS. TRIP HERNANDEZ provided verbal consent to discuss current and ongoing needs with/in the presence of: SPOUSE, TERRENCE AND SON, DEAN. PT REPORTS LIVING AT HOME INDEPENDENTLY WITH HIS , PT'S SON LIVES NEXT DOOR AND EITHER PT'S SON OR DAUGHTER IN LAW IS THERE TO ASSIST ALL OF THE TIME. . PT HAS WALKER AND WHEELCHAIR WELL PORTABLE OXYGEN THAT PT'S SON HAS BEEN PRIVATELY PAYING FOR; PT REPORTS ONLY USING THE OXYGEN NEEDED. THEY NEVER OBTAINED THE NEBULIZER AFTER LAST ADMISSION. PT'S PROVIDER FOR MEDICAL EQUIPMENT IS [employer]. PT HAS HOME HEALTH WITH [facility] FOR THERAPY AND NURSING. CM DISCUSSED AVAILABILITY OF HOME HEALTH, REHAB SERVICES AND MEDICAL EQUIPMENT. PT AND SON DENIES DISCHARGE NEEDS OTHER THAN OXYGEN, NEBULIZER AND RESUMPTION OF [facility], SON WILL BE TRANSPORTING PT AND SPOUSE HOME FOR DISCHARGE TODAY. IMPORTANT MESSAGE FROM MEDICARE PROVIDED AND EXPLAINED. CM CALLED [facility], , SPOKE TO AIDE, PROVIDED REFERRAL INFORMATION FOR RESUMPTION OF HOME HEALTH. CM FAXED REFERRAL AND DISCHARGE INFORMATION TO [facility], . CM CALLED [facility], , PROVIDED REFERRAL INFORMATION FOR OXYGEN AND NEBULIZER TO [facility]. CM FAXED REFERRAL TO [facility] AT [phone]. [facility] DELIVERED OXYGEN TO PT'S ROOM FOR DISCHARGE HOME TODAY AND WILL ARRANGE HOME OXYGEN AND NEBULIZER DELIVERY TO PT'S HOME TODAY AFTER PT'S ARRIVAL AT HOME. COLORIST DYER NURSE NOTIFIED. Hemmer Chainstitch: Santino Rodriguez DCPIA - Discharge Planning Initial Assessment Updated by [email or web address]: Santino Rodriguez on 11/11/18 2:33 pm * Is the patient Alert and Oriented? Yes * How many steps to enter\exit or inside your home? RAMP * PCP DR. MANNING * Pharmacy [facility] [address] * Preadmission Environment Home with Family * ADLs Partial Dependent * Partial ADLs (Assistance needed) Medication Management * Equipment Walker Wheelchair * Other Equipment [facility] - MEDICAL EQUIPMENT PROVIDER [facility]REFERENCE * List name and contact numbers for known caregivers / representatives who currently or will assist patient after discharge: DEAN HERNANDEZ, SON, * Verbal permission to speak to the caregivers and representatives has been obtained from the patient. N/A * Community resources currently utilized Home Health * Please name any agencies selected above. [facility] * Additional services required to return to the preadmission environment? No * Can the patient safely return to the preadmission environment? Yes * Has this patient been hospitalized within the prior 30 days at any hospital? Yes Coverage Notice Reviewer: [id number] - Santino Rodriguez Notice Issued Date-Time: 11/11/2018 12:30 Notice Type: IM Discharge Notice Notice Delivered To: Patient Relationship to Patient: Chemical Technician Name: Delivery Method: HAND - Hand Delivered Bianca Days: Prior Verbal Notification: Recipient Understood Notice: Yes Recipient Signature: Yes Med Rec Note Co-signed by Attending: Coverage Notice Comment: Last DP export: 11/11/18 1:35 Patient Name: TRIP HERNANDEZ Page [id number] at 1449 All edits/amendments must be made on the electronic document DICTATION DATE: 11/11/181448 ENGINEERING PROGRAM MANAGER: CLAUDIA 11/11/181448 RPT#: [id number] [place] DATE: STATUS: ADM IN [facility] [address] [place] [address] END OF REPORT
--- NOTE | ~2018-11-09 | MORECARE ---
CASE MANAGEMENT DISCHARGE SUMMARY PATIENT: TRIP HERNANDEZ UNIT: [id number] ADM DATE: 11/09/18 AGE: 88 : 31 SEX: M ROOM/BED: D.7456 AUTHOR: BELÉN MOORE PHYSICIAN: REFERRING PHYSICIAN: WILMER SMART MD DATE OF SERVICE: 11/12/18 Discharge Plan Patient Name: TRIP HERNANDEZ Facility: [facility]:[place] : 1930 Planned Disposition: Home with Home Health Anticipated Discharge Date: 11/11/18 Discharge Date: 11/11/2018 Expected LOS: 2 Initial Reviewer: [id number] Initial Review Date: 11/11/2018 Generated: 11/12/18 11:45 am Comments DCP- Discharge Planning Updated by [email or web address]: Santino Rodriguez on 11/11/18 1:[address] Patient Name: TRIP HERNANDEZ Admission Status: ER Accout number: [id number] Admission Date: 11-09-2018 : 1930 Admission Diagnosis:SHORTNESS OF BREATH Attending: WILMER SMART Current LOS: 2 Anticipated DC Date: 11-11-2018 Planned Disposition: Home with Home Health Primary Insurance: MEDICARE A & B PLANNED EXTERNAL PROVIDER: [facility] Discharge Planning Comments: CM MET WITH PT AND SPOUSE IN ROOM TO DISCUSS DISCHARGE PLANNING AND NEEDS. TRIP HERNANDEZ provided verbal consent to discuss current and ongoing needs with/in the presence of: SPOUSE, TERRENCE AND SON, DEAN. PT REPORTS LIVING AT HOME INDEPENDENTLY WITH HIS , PT'S SON LIVES NEXT DOOR AND EITHER PT'S SON OR DAUGHTER IN LAW IS THERE TO ASSIST ALL OF THE TIME. . PT HAS WALKER AND WHEELCHAIR WELL PORTABLE OXYGEN THAT PT'S SON HAS BEEN PRIVATELY PAYING FOR; PT REPORTS ONLY USING THE OXYGEN NEEDED. THEY NEVER OBTAINED THE NEBULIZER AFTER LAST ADMISSION. PT'S PROVIDER FOR MEDICAL EQUIPMENT IS [facility]. PT HAS HOME HEALTH WITH [facility] FOR THERAPY AND NURSING. CM DISCUSSED AVAILABILITY OF HOME HEALTH, REHAB SERVICES AND MEDICAL EQUIPMENT. PT AND SON DENIES DISCHARGE NEEDS OTHER THAN OXYGEN, NEBULIZER AND RESUMPTION OF [facility], SON WILL BE TRANSPORTING PT AND SPOUSE HOME FOR DISCHARGE TODAY. IMPORTANT MESSAGE FROM MEDICARE PROVIDED AND EXPLAINED. CM CALLED [facility], , SPOKE TO AIDE, PROVIDED REFERRAL INFORMATION FOR RESUMPTION OF HOME HEALTH. CM FAXED REFERRAL AND DISCHARGE INFORMATION TO [facility], . CM CALLED [facility], , PROVIDED REFERRAL INFORMATION FOR OXYGEN AND NEBULIZER TO [facility]. CM FAXED REFERRAL TO [facility] AT [phone]. [facility] DELIVERED OXYGEN TO PT'S ROOM FOR DISCHARGE HOME TODAY AND WILL ARRANGE HOME OXYGEN AND NEBULIZER DELIVERY TO PT'S HOME TODAY AFTER PT'S ARRIVAL AT HOME. SPINNING LATHE OPERATOR HYDRAULIC NURSE NOTIFIED. Church Supervisor: Santino Rodriguez DCPIA - Discharge Planning Initial Assessment Updated by [email or web address]: Santino Rodriguez on 11/11/18 2:33 pm * Is the patient Alert and Oriented? Yes * How many steps to enter\exit or inside your home? RAMP * PCP DR. MANNING * [facility] [address] * Preadmission Environment Home with Family * ADLs Partial Dependent * Partial ADLs (Assistance needed) Medication Management * Equipment Walker Wheelchair * Other Equipment [facility] - MEDICAL EQUIPMENT PROVIDER PREFERENCE * List name and contact numbers for known caregivers / representatives who currently or will assist patient after discharge: DEAN HERNANDEZ, SON, * Verbal permission to speak to the caregivers and representatives has been obtained from the patient. N/A * Community resources currently utilized Home Health * Please name any agencies selected above. [facility] * Additional services required to return to the preadmission environment? No * Can the patient safely return to the preadmission environment? Yes * Has this patient been hospitalized within the prior 30 days at any hospital? Yes Coverage Notice Reviewer: [id number] - Santino Rodriguez Notice Issued Date-Time: 11/11/2018 12:30 Notice Type: IM Discharge Notice Notice Delivered To: Patient Relationship to Patient: Illuminating Engineer Name: Delivery Method: HAND - Hand Delivered Bianca Days: Prior Verbal Notification: Recipient Understood Notice: Yes Recipient Signature: Yes Med Rec Note Co-signed by Attending: Coverage Notice Comment: Last DP export: 11/11/18 1:49 Patient Name: TRIP HERNANDEZ Page 15768 at 1045 All edits/amendments must be made on the electronic document DICTATION DATE: 11/12/18 1045 TOBACCO GRADER: CLAUDIA 11/12/18 1045 RPT#: [id number] DC DATE:11/11/18 STATUS: DIS IN [facility] [address] [place] [address] END OF REPORT
--- NOTE | ~2018-11-09 | MORECARE ---
CASE MANAGEMENT DISCHARGE SUMMARY PATIENT: TRIP HERNANDEZ UNIT: [id number] ADM DATE: 11/09/18 AGE: 88 : 31 SEX: M ROOM/BED: D.2130 AUTHOR: BELÉN MOORE PHYSICIAN: REFERRING PHYSICIAN: WILMER SMART MD DATE OF SERVICE: 11/11/18 Discharge Plan Patient Name: TRIP HERNANDEZ Facility: [facility]:[place] : 1930 Planned Disposition: Home with Home Health Anticipated Discharge Date: 11/11/18 Discharge Date: Expected LOS: 2 Initial Reviewer: [email or web address] Initial Review Date: 11/11/2018 Generated: 11/11/18 3:35 pm DCPIA - Discharge Planning Initial Assessment Updated by [email or web address]: Santino Rodriguez on 11/11/18 2:33 pm * Is the patient Alert and Oriented? Yes * How many steps to enter\exit or inside your home? RAMP * PCP DR. MANNING * [facility] [address] * Preadmission Environment Home with Family * ADLs Partial Dependent * Partial ADLs (Assistance needed) Medication Management * Equipment Walker Wheelchair * Other Equipment [facility] - MEDICAL EQUIPMENT PROVIDER PREFERENCE * List name and contact numbers for known caregivers / representatives who currently or will assist patient after discharge: DEAN HERNANDEZ, SON, * Verbal permission to speak to the caregivers and representatives has been obtained from the patient. N/A * Community resources currently utilized Home Health * Please name any agencies selected above. [facility] * Additional services required to return to the preadmission environment? No * Can the patient safely return to the preadmission environment? Yes * Has this patient been hospitalized within the prior 30 days at any hospital? Yes Last DP export: 11/11/18 12:56 Patient Name: TRIP HERNANDEZ Page 49789 at 1432 All edits/amendments must be made on the electronic document DICTATION DATE: 11/11/18 1435 BELLPERSON: CLAUDIA 11/11/18 1435 RPT#: [id number] DC DATE: STATUS: ADM IN [facility] [address] [place] [address] END OF REPORT
--- NOTE | ~2018-11-09 | MORECARE ---
CASE MANAGEMENT DISCHARGE SUMMARY PATIENT: TRIP HERNANDEZ UNIT: [id number] ADM DATE: 11/09/18 AGE: 88 : [birth year] SEX: M ROOM/BED: D.2139 AUTHOR: BELÉN MOORE PHYSICIAN: REFERRING PHYSICIAN: WILMER SMART MD DATE OF SERVICE: 11/11/18 Discharge Plan Patient Name: TRIP HERNANDEZ Facility: [facility]:[place] : 1930 Planned Disposition: Home with Home Health Anticipated Discharge Date: 11/11/18 Discharge Date: Expected LOS: 2 Initial Reviewer: [id number] Initial Review Date: 11/11/2018 Generated: 11/11/18 2:56 pm External Providers External Provider: [facility] Next Contact Date: 11/11/2018 Service Request Date: Service Type: Resolution: Reviewer: Comments: Last DP export: 11/11/18 11:50 Patient Name: TRIP HERNANDEZ Page 11870 at 1356 All edits/amendments must be made on the electronic document DICTATION DATE: 11/11/18 1356 SKI PATROL OFFICER: CLAUDIA 11/11/18 1356 RPT#: [id number] DC DATE: STATUS: ADM IN [facility] [address] [place] [address] END OF REPORT
--- NOTE | ~2018-11-09 | MORECARE ---
CASE MANAGEMENT DISCHARGE SUMMARY PATIENT: TRIP HERNANDEZ UNIT: [id number] ADM DATE: 11/09/18 AGE: 88 : [birth year] SEX: M ROOM/BED: D.2139 AUTHOR: BELÉN MOORE PHYSICIAN: REFERRING PHYSICIAN: WILMER SMART MD DATE OF SERVICE: 11/11/18 Discharge Plan Patient Name: TRIP HERNANDEZ Facility: [facility]:[place] : 1930 Planned Disposition: Home with Home Health Anticipated Discharge Date: 11/11/18 Discharge Date: Expected LOS: 2 Initial Reviewer: [email or web address] Initial Review Date: 11/11/2018 Generated: 11/11/18 1:50 pm External Providers External Provider: [facility] Next Contact Date: 11/11/2018 Service Request Date: Service Type: Resolution: Reviewer: Comments: Patient Name: TRIP HERNANDEZ Page 39048 at 1251 All edits/amendments must be made on the electronic document DICTATION DATE: 11/11/18 1250 WEB MERCHANDISER: CLAUDIA 11/11/18 1250 RPT#: [id number] DC DATE: STATUS: ADM IN [facility] [address] [place] [address] END OF REPORT
[~2018-11-09 17:34] MED LIST changes: +IPRAT-ALBUT 0.5-3 ML UPD
[2018-11-09 18:44] LABS: BASOPHILS 0.3 % (0-2); EOSINOPHILS 1.3 % (0-7); HEMATOCRIT 42.3 % (42.0-54.0); HEMOGLOBIN 14.2 g/dL (13.5-17.5); IMMATURE GRANULOCYTES 0.1 % (0-5); LYMPHOCYTES 24.5 % (15-50); MCH 30.5 pg (26.0-34.0); MCHC 33.6 g/dL (31.0-37.0); MEAN PLATELET VOLUME 11.6 fL (7.4-10.4); MONOCYTES 12.3 % (2-11); NEUTROPHILS 61.5 % (40-80); RBC 4.65 10x6/uL (4.20-6.10); RDW 15.2 % (11.5-14.5); WBC 6.9 10x3/uL (4.8-10.8)
[2018-11-09 18:48] LABS: PLATELET COUNT 101 10x3/uL (130-400)
[2018-11-09 18:55] LABS: APTT 30.6 SECONDS (22.8-39.4); INR 1.12 (0.85-1.17); PROTIME 13.9 SECONDS (11.6-15.0)
[2018-11-09 19:04] LABS: ALBUMIN 3.9 g/dL (3.4-5.0); ALKALINE PHOSPHATASE 88 U/L (46-116); ALT (SGPT) 23 U/L (10-68); BILIRUBIN - TOTAL 0.61 mg/dL (0.2-1.3); CALC OSMOLALITY 284 mosm/kg (275-300); CALCIUM 8.8 mg/dL (8.5-10.1); CARBON DIOXIDE 24.7 mmol/L (21.0-32.0); CHLORIDE - SERUM 101 mmol/L (98-107); CREATININE - SERUM 1.7 mg/dL (0.6-1.3); GLUCOSE 100 mg/dL (74-106); POTASSIUM - SERUM 4.5 mmol/L (3.5-5.1); PROTEIN - SERUM 7.9 g/dL (6.4-8.2); SODIUM 139 mmol/L (136-145); UREA NITROGEN 33 mg/dL (7-18); eGFR NON AFRICAN AMERICAN 41 mL/min (90-120)
[2018-11-09 19:20] LABS: CKMB 0.9 U/L (0.0-3.6); CREATINE KINASE 35 UL (21-232); PRO BNP 7728 pg/mL (0-450); TROPONIN-I 0.023 ng/mL (0.000-0.060)
[2018-11-09 19:58] VITALS: BP 119/48
[2018-11-10] VITALS (7 sets, daily range): BP systolic 94–139; BP diastolic 44–75; Ht 180.3 cm; Wt 102.3 kg
[2018-11-10 06:06] LABS: BASOPHILS 0.2 % (0-2); EOSINOPHILS 1.6 % (0-7); HEMATOCRIT 38.1 % (42.0-54.0); HEMOGLOBIN 12.8 g/dL (13.5-17.5); IMMATURE GRANULOCYTES 0.2 % (0-5); LYMPHOCYTES 22.9 % (15-50); MCH 30.4 pg (26.0-34.0); MCHC 33.6 g/dL (31.0-37.0); MCV 90.5 fL (80.0-100.0); MEAN PLATELET VOLUME 11.2 fL (7.4-10.4); MONOCYTES 11.5 % (2-11); NEUTROPHILS 63.6 % (40-80); PLATELET COUNT 83 10x3/uL (130-400); RBC 4.21 10x6/uL (4.20-6.10); RDW 15.1 % (11.5-14.5)
[2018-11-10 06:07] LABS: WBC 5.1 10x3/uL (4.8-10.8)
[2018-11-10 06:13] LABS: CALCIUM 8.4 mg/dL (8.5-10.1); CARBON DIOXIDE 23.2 mmol/L (21.0-32.0); CREATININE - SERUM 1.7 mg/dL (0.6-1.3); POTASSIUM - SERUM 4.2 mmol/L (3.5-5.1)
[2018-11-10 07:00] LABS: PLATELET ESTIMATE DECREASED
[2018-11-11] VITALS: BP 133/58
[2018-11-11 04:00] VITALS: BP 122/65
[2018-11-11 05:24] LABS: BASOPHILS 0.2 % (0-2); EOSINOPHILS 1.4 % (0-7); HEMATOCRIT 38.6 % (42.0-54.0); HEMOGLOBIN 12.8 g/dL (13.5-17.5); IMMATURE GRANULOCYTES 0.2 % (0-5); LYMPHOCYTES 20.6 % (15-50); MCH 30.3 pg (26.0-34.0); MCHC 33.2 g/dL (31.0-37.0); MCV 91.3 fL (80.0-100.0); MEAN PLATELET VOLUME 11.3 fL (7.4-10.4); MONOCYTES 12.1 % (2-11); NEUTROPHILS 65.5 % (40-80); PLATELET COUNT 83 10x3/uL (130-400); RBC 4.23 10x6/uL (4.20-6.10); RDW 15.2 % (11.5-14.5); WBC 5.6 10x3/uL (4.8-10.8)
[2018-11-11 05:46] LABS: ALBUMIN 3.3 g/dL (3.4-5.0); ANION GAP 17.3 mmol/L (8-16); BILIRUBIN - TOTAL 0.44 mg/dL (0.2-1.3); CALCIUM 8.7 mg/dL (8.5-10.1); CREATININE - SERUM 1.4 mg/dL (0.6-1.3); MAGNESIUM - SERUM 2.3 mg/dL (1.8-2.4); POTASSIUM - SERUM 4.3 mmol/L (3.5-5.1); PROTEIN - SERUM 6.7 g/dL (6.4-8.2)
[2018-11-11 07:53] VITALS: BP 136/52
[2018-11-11 11:41] VITALS: BP 99/49
[2018-11-11] MEDS ORDERED: CARDIZEM CD180 MG PO (14:38)
[2018-11-11] MEDS ORDERED: ALDACTONE25 MG PO (14:38)
[2018-11-11] MEDS ORDERED: IPRAT-ALBUT 0.5-3 ML UPD (14:38)
[2018-11-11] MEDS ORDERED: LOPRESSOR25 MG PO (14:39)
[2018-11-11] MEDS ORDERED: PLAVIX75 MG PO (14:39)
[2018-11-11] MEDS ORDERED: VIBRAMYCIN 100100 MG PO (14:40)
== END 2018-11-11 15:48 | disposition home health service (06) | DRG 190 ==
LOC: D.ER 17:34 → D.M2 20:33 → D.EDHOLD 20:33 → D.M2 21:56
PROVIDERS: Family Medicine; Family Medicine Adult Medicine
DX: J44.0 Chronic obstructive pulmonary disease with (acute) lower respiratory infection (principal); J18.9 Pneumonia, unspecified organism; I50.32 Chronic diastolic (congestive) heart failure; I25.10 Atherosclerotic heart disease of native coronary artery without angina pectoris; Z95.5 Presence of coronary angioplasty implant and graft; I48.91 Unspecified atrial fibrillation; Z95.0 Presence of cardiac pacemaker

== ENCOUNTER 2018-11-14 13:55 | Inpatient (IN) | payer MEDICARE, OTHER ==
[~2018-11-14] VITALS: Ht 180.3 cm; Wt 74.2 kg
--- NOTE | ~2018-11-14 | MORECARE ---
CASE MANAGEMENT DISCHARGE SUMMARY PATIENT: TRIP HERNANDEZ UNIT: [id number] ADM DATE: 11/14/18 AGE: 88 : [birth year] SEX: M ROOM/BED: D.2102 AUTHOR: OSCARDOC PHYSICIAN: REFERRING PHYSICIAN: MAGGY MARTIN MD DATE OF SERVICE: 11/24/18 Discharge Plan Patient Name: TRIP HERNANDEZ Facility: [facility]:[place] : 1930 Planned Disposition: Home with Home Health Anticipated Discharge Date: Discharge Date: Expected LOS: Initial Reviewer: [id number] Initial Review Date: 11/14/2018 Generated: 11/24/18 3:13 pm Comments DCP- Discharge Planning Updated by [id number]: Ngozi May on 11/24/18 1:[address] Order received for Hospice Consult for Home Hospice. Addison with [facility] present in the hospital. I spoke with the son and he stated he had no preference of who speaks to them. I obtained verbal permission to ask Addison to come back up and talk to him. Addison paged overhead, with no response, I called his cell phone and he stated that he would be right up to talk with the family. The family will be waiting on the bench between [facility] and the ER decker. DCP- Discharge Planning Updated by [email or web address]: Santino Rodriguez on 11/15/18 4:[address] Patient Name: TRIP HERNANDEZ Admission Status: ER Accout number: [id number] Admission Date: 11-14-2018 : 1930 Admission Diagnosis: Attending: MAGGY BLACKWELL Current LOS: 1 Anticipated DC Date: Planned Disposition: Home with Home Health Primary Insurance: MEDICARE A & B PLANNED EXTERNAL PROVIDER: [facility] Discharge Planning Comments: CM MET WITH PT IN ROOM TO DISCUSS DISCHARGE PLANNING AND NEEDS. PT REPORTS LIVING AT HOME INDEPENDENTLY WITH HIS . PT HAS WALKER, WHEELCHAIR, HOME AND PORTABLE OXYGEN AND NEBULIZER FROM [facility]. PT HAS HOME HEALTH WITH [facility]. CM DISCUSSED AVAILABILITY OF HOME HEALTH, REHAB SERVICES AND MEDICAL EQUIPMENT. PT DENIES DISCHARGE NEEDS, REPORTS HIS SON WILL PICK HIM UP FOR DISCHARGE HOME AND HE WILL GO HOME WITH [facility]. FOR DISCHARGE, NOTIFY [facility] AT [phone]; FAX DISCHARGE INFORMATION TO [facility] AT [phone]. Housing Director: Santino Rodriguez DCPIA - Discharge Planning Initial Assessment Updated by [id number]: Santino Rodriguez on 11/15/18 5:13 pm * Is the patient Alert and Oriented? Yes * How many steps to enter\exit or inside your home? RAMP * PCP DR. MANNING * [facility] [address] * Preadmission Environment Home with Family * ADLs Partial Dependent * Partial ADLs (Assistance needed) Medication Management * Equipment Nebulizer Oxygen Walker Wheelchair * Other Equipment HOME AND PORTABLE OXYGEN [facility] - PROVIDER * List name and contact numbers for known caregivers / representatives who currently or will assist patient after discharge: DEAN HERNANDEZ, SON, * Verbal permission to speak to the caregivers and representatives has been obtained from the patient. Yes * Community resources currently utilized Home Health * Please name any agencies selected above. [facility] * Additional services required to return to the preadmission environment? No * Can the patient safely return to the preadmission environment? Yes * Has this patient been hospitalized within the prior 30 days at any hospital? Yes Last DP export: 11/16/18 6:56 Patient Name: TRIP HERNANDEZ Page 12501 at 1413 All edits/amendments must be made on the electronic document DICTATION DATE: 11/24/181412 COOLING TOWER OPERATOR: CLAUDIA 11/24/18 1413 RPT#: [id number] [place] DATE: STATUS: ADM IN [facility] [address] [place] [address] END OF REPORT
--- NOTE | ~2018-11-14 | MORECARE ---
CASE MANAGEMENT DISCHARGE SUMMARY PATIENT: TRIP HERNANDEZ UNIT: [id number] ADM DATE: 11/14/18 AGE: 88 : 31 SEX: M ROOM/BED: D.2102 AUTHOR: BELÉN MOORE PHYSICIAN: REFERRING PHYSICIAN: MAGGY MARTIN MD DATE OF SERVICE: 11/25/18 Discharge Plan Patient Name: TRIP HERNANDEZ Facility: [facility]:[place] : 1930 Planned Disposition: Home with Hospice Anticipated Discharge Date: 11/25/18 Discharge Date: Expected LOS: 11 Initial Reviewer: [email or web address] Initial Review Date: 11/14/2018 Generated: 11/25/18 10:25 am Comments DCP- Discharge Planning Updated by [email or web address]: Santino Chavis on 11/25/18 8:[address] Patient Name: TRIP HERNANDEZ Encounter No: [id number] : 1930 Primary Insurance: MEDICARE A & B Anticipated DC Date: 11-25-2018 Planned Disposition: Home with Hospice External Planned Provider: [facility] DCP follow-up note: CM SPOKE TO MÓNICA OF [facility], PT HAS BEEN ACCEPTED FOR HOME HOSPICE AND WILL ADMIT TO HOSPICE AFTER ARRIVAL AT HOME. [facility] WILL ARRANGE ALL MEDICAL EQUIPMENT TODAY AND NOTIFY CM WHEN COMPLETED AND READY TO RECEIVE PT AT HOME. CM WAITING FOR EQUIPMENT DELIVERY TO PT'S HOME FROM [facility]. [facility] WILL CALL TODAY WHEN THEY ARE READY TO ADMIT PT AT HOME. FOR DISCHARGE, NOTIFY [facility] AT [phone], FAX DISCHARGE INFORMATION TO [facility] AT [phone]. Santino Chavis, CASE MANAGEMENT Appended by Santino Chavis on 11/25/2018 9:21 CUSTOMER EXPERIENCE CONSULTANT: CM CALLED [facility], SPOKE TO REENA, NOTIFIED THAT PT WILL BE ADMITTING TO [facility] TODAY AFTER HIS DISCHARGE HOME. SANTINO CHAVIS, CASE MANAGEMENT DCP- Discharge Planning Updated by [email or web address]: Ngozi May on 11/24/18 1:[address] Order received for Hospice Consult for Home Hospice. Mónica with [facility] present in the hospital. I spoke with the son and he stated he had no preference of who speaks to them. I obtained verbal permission to ask Mónica to come back up and talk to him. Mónica paged overhead, with no response, I called his cell phone and he stated that he would be right up to talk with the family. The family will be waiting on the bench between [facility] 2 and the ER decker. DCP- Discharge Planning Updated by [id number]: Santino Chavis on 11/15/18 4:[address] Patient Name: TRIP HERNANDEZ Admission Status: ER Accout number: [id number] Admission Date: 11-14-2018 : 1930 Admission Diagnosis: Attending: MAGGY BLACKWELL Current LOS: 1 Anticipated DC Date: Planned Disposition: Home with Home Health Primary Insurance: MEDICARE A & B PLANNED EXTERNAL PROVIDER: [facility] Discharge Planning Comments: CM MET WITH PT IN ROOM TO DISCUSS DISCHARGE PLANNING AND NEEDS. PT REPORTS LIVING AT HOME INDEPENDENTLY WITH HIS . PT HAS WALKER, WHEELCHAIR, HOME AND PORTABLE OXYGEN AND NEBULIZER FROM [employer]. PT HAS HOME HEALTH WITH [facility]. CM DISCUSSED AVAILABILITY OF HOME HEALTH, REHAB SERVICES AND MEDICAL EQUIPMENT. PT DENIES DISCHARGE NEEDS, REPORTS HIS SON WILL PICK HIM UP FOR DISCHARGE HOME AND HE WILL GO HOME WITH [facility]. FOR DISCHARGE, NOTIFY [facility] AT [phone]; FAX DISCHARGE INFORMATION TO [facility] AT [phone]. Mechanical Process Engineer: Santino Chavis DCPIA - Discharge Planning Initial Assessment Updated by [id number]: Santino Chavis on 11/15/18 5:13 pm * Is the patient Alert and Oriented? Yes * How many steps to enter\exit or inside your home? RAMP * PCP DR. MANNING * [facility] * Preadmission Environment Home with Family * ADLs Partial Dependent * Partial ADLs (Assistance needed) Medication Management * Equipment Nebulizer Oxygen Walker Wheelchair * Other Equipment HOME AND PORTABLE OXYGEN [employer] - PROVIDER * List name and contact numbers for known caregivers / representatives who currently or will assist patient after discharge: DEAN HERNANDEZ, SON, * Verbal permission to speak to the caregivers and representatives has been obtained from the patient. Yes * Community resources currently utilized Home Health * Please name any agencies selected above. [facility] * Additional services required to return to the preadmission environment? No * Can the patient safely return to the preadmission environment? Yes * Has this patient been hospitalized within the prior 30 days at any hospital? Yes Last DP export: 11/25/18 7:48 Patient Name: TRIP HERNANDEZ Page 41486 at 0925 All edits/amendments must be made on the electronic document DICTATION DATE: 11/25/18924 DATASTAGE CONSULTANT: CLAUDIA 11/25/18924 RPT#: [id number] DC DATE: STATUS: ADM IN [facility] [address] [place] [address] END OF REPORT
--- NOTE | ~2018-11-14 | MORECARE ---
CASE MANAGEMENT DISCHARGE SUMMARY PATIENT: TRIP HERNANDEZ UNIT: [id number] ADM DATE: 11/14/18 AGE: 88 : 31 SEX: M ROOM/BED: D.2102 AUTHOR: BELÉN MOORE PHYSICIAN: REFERRING PHYSICIAN: MAGGY MARTIN MD DATE OF SERVICE: 11/25/18 Discharge Plan Patient Name: TRIP HERNANDEZ Facility: [facility]:[place] : 1930 Planned Disposition: Home with Hospice Anticipated Discharge Date: 11/25/18 Discharge Date: Expected LOS: 11 Initial Reviewer: [email or web address] Initial Review Date: 11/14/2018 Generated: 11/25/18 9:48 am Comments DCP- Discharge Planning Updated by [email or web address]: Ngozi May on 11/24/18 1:[address] Order received for Hospice Consult for Home Hospice. Addison with [facility] present in the hospital. I spoke with the son and he stated he had no preference of who speaks to them. I obtained verbal permission to ask Addison to come back up and talk to him. Addison paged overhead, with no response, I called his cell phone and he stated that he would be right up to talk with the family. The family will be waiting on the bench between [facility] and the ER decker. DCP- Discharge Planning Updated by [email or web address]: Santino Rodriguez on 11/15/18 4:[address] Patient Name: TRIP HERNANDEZ Admission Status: ER Accout number: [id number] Admission Date: 11-14-2018 : 1930 Admission Diagnosis: Attending: MAGGY BLACKWELL Current LOS: 1 Anticipated DC Date: Planned Disposition: Home with Home Health Primary Insurance: MEDICARE A & B [facility] Discharge Planning Comments: CM MET WITH PT IN ROOM TO DISCUSS DISCHARGE PLANNING AND NEEDS. PT REPORTS LIVING AT HOME INDEPENDENTLY WITH HIS . PT HAS WALKER, WHEELCHAIR, HOME AND PORTABLE OXYGEN AND NEBULIZER FROM [facility]. PT HAS HOME HEALTH WITH [facility]. CM DISCUSSED AVAILABILITY OF HOME HEALTH, REHAB SERVICES AND MEDICAL EQUIPMENT. PT DENIES DISCHARGE NEEDS, REPORTS HIS SON WILL PICK HIM UP FOR DISCHARGE HOME AND HE WILL GO HOME WITH [facility]. FOR DISCHARGE, NOTIFY [facility] AT [phone]; FAX DISCHARGE INFORMATION TO [facility] AT [phone]. Java Lead Developer: Santino Rodriguez DCPIA - Discharge Planning Initial Assessment Updated by [email or web address]: Santino Rodriguez on 11/15/18 5:13 pm * Is the patient Alert and Oriented? Yes * How many steps to enter\exit or inside your home? RAMP * PCP DR. MANNING * [facility] [address] * Preadmission Environment Home with Family * ADLs Partial Dependent * Partial ADLs (Assistance needed) Medication Management * Equipment Nebulizer Oxygen Walker Wheelchair * Other Equipment HOME AND PORTABLE OXYGEN [employer] - PROVIDER * List name and contact numbers for known caregivers / representatives who currently or will assist patient after discharge: DEAN HERNANDEZ, SON, * Verbal permission to speak to the caregivers and representatives has been obtained from the patient. Yes * Community resources currently utilized Home Health * Please name any agencies selected above. [facility] * Additional services required to return to the preadmission environment? No * Can the patient safely return to the preadmission environment? Yes * Has this patient been hospitalized within the prior 30 days at any hospital? Yes Last DP export: 11/24/18 1:13 Patient Name: TRIP HERNANDEZ Page 65552 at 0848 All edits/amendments must be made on the electronic document DICTATION DATE: 11/25/18846 REFRIGERATOR ASSEMBLER: CLAUDIA 11/25/18846 RPT#: [id number] DC DATE: STATUS: ADM IN [facility] [address] [place] [address] END OF REPORT
--- NOTE | ~2018-11-14 | MORECARE ---
CASE MANAGEMENT DISCHARGE SUMMARY PATIENT: TRIP HERNANDEZ UNIT: [id number] ADM DATE: 11/14/18 AGE: 88 : 31 SEX: M ROOM/BED: D.2102 AUTHOR: OSCAR,DOC PHYSICIAN: REFERRING PHYSICIAN: MAGGY MARTIN MD DATE OF SERVICE: 11/16/18 Discharge Plan Patient Name: TRIP HERNANDEZ Facility: [facility]:[place] : 1930 Planned Disposition: Home with Home Health Anticipated Discharge Date: Discharge Date: Expected LOS: Initial Reviewer: [email or web address] Initial Review Date: 11/14/2018 Generated: 11/16/18 8:55 am Comments DCP- Discharge Planning Updated by [email or web address]: Santino Rodriguez on 11/15/18 4:[address] Patient Name: TRIP HERNANDEZ Admission Status: ER Accout number: [id number] Admission Date: 11-14-2018 : 1930 Admission Diagnosis: Attending: MAGGY BLACKWELL Current LOS: 1 Anticipated DC Date: Planned Disposition: Home with Home Health Primary Insurance: MEDICARE A & B PLANNED EXTERNAL PROVIDER: [facility] Discharge Planning Comments: CM MET WITH PT IN ROOM TO DISCUSS DISCHARGE PLANNING AND NEEDS. PT REPORTS LIVING AT HOME INDEPENDENTLY WITH HIS . PT HAS WALKER, WHEELCHAIR, HOME AND PORTABLE OXYGEN AND NEBULIZER FROM [employer]. PT HAS HOME HEALTH WITH [facility]. CM DISCUSSED AVAILABILITY OF HOME HEALTH, REHAB SERVICES AND MEDICAL EQUIPMENT. PT DENIES DISCHARGE NEEDS, REPORTS HIS SON WILL PICK HIM UP FOR DISCHARGE HOME AND HE WILL GO HOME WITH [facility]. FOR DISCHARGE, NOTIFY [facility] AT [phone]; FAX DISCHARGE INFORMATION TO [facility] AT [phone]. Senior Fund Accountant: Santino Rodriguez DCPIA - Discharge Planning Initial Assessment Updated by [email or web address]: Santino Rodriguez on 11/15/18 5:13 pm * Is the patient Alert and Oriented? Yes * How many steps to enter\exit or inside your home? RAMP * PCP DR. MANNING * [facility] [address] * Preadmission Environment Home with Family * ADLs Partial Dependent * Partial ADLs (Assistance needed) Medication Management * Equipment Nebulizer Oxygen Walker Wheelchair * Other Equipment HOME AND PORTABLE OXYGEN [employer] - PROVIDER * List name and contact numbers for known caregivers / representatives who currently or will assist patient after discharge: DEAN HERNANDEZ, GERMAN, * Verbal permission to speak to the caregivers and representatives has been obtained from the patient. Yes * Community resources currently utilized Home Health * Please name any agencies selected above. [facility] * Additional services required to return to the preadmission environment? No * Can the patient safely return to the preadmission environment? Yes * Has this patient been hospitalized within the prior 30 days at any hospital? Yes Last DP export: 11/15/18 4:25 Patient Name: TRIP HERNANDEZ Page 77031 at 0756 All edits/amendments must be made on the electronic document DICTATION DATE: 11/16/18754 INSPECTOR SUBASSEMBLIES: CLAUDIA 11/16/18754 RPT#: [id number] DC DATE: STATUS: ADM IN [facility] [address] [place] [address] END OF REPORT
--- NOTE | ~2018-11-14 | MORECARE ---
CASE MANAGEMENT DISCHARGE SUMMARY PATIENT: TRIP HERNANDEZ UNIT: [id number] ADM DATE: 11/14/18 AGE: 88 : 31 SEX: M ROOM/BED: D.2102 AUTHOR: BELÉN MOORE PHYSICIAN: REFERRING PHYSICIAN: MAGGY MARTIN MD DATE OF SERVICE: 11/26/18 Discharge Plan Patient Name: TRIP HERNANDEZ Facility: [facility]:[place] : 1930 Planned Disposition: Home with Hospice Anticipated Discharge Date: 11/25/18 Discharge Date: 11/25/2018 Expected LOS: 11 Initial Reviewer: [email or web address] Initial Review Date: 11/14/2018 Generated: 11/26/18 10:31 am Comments DCP- Discharge Planning Updated by [id number]: Santino Chavis on 11/25/18 11:[address] Patient Name: TRIP HERNANDEZ Encounter No: [id number] : 1930 Primary Insurance: MEDICARE A & B Anticipated DC Date: 11-25-2018 Planned Disposition: Home with Hospice External Planned Provider: [facility] DCP follow-up note: CM SPOKE TO [facility], PT HAS BEEN ACCEPTED FOR HOME HOSPICE AND WILL ADMIT TO HOSPICE AFTER ARRIVAL AT HOME. [facility] WILL ARRANGE ALL MEDICAL EQUIPMENT TODAY AND NOTIFY CM WHEN COMPLETED AND READY TO RECEIVE PT AT HOME. CM WAITING FOR EQUIPMENT DELIVERY TO PT'S HOME FROM [facility]. [facility] WILL CALL TODAY WHEN THEY ARE READY TO ADMIT PT AT HOME. FOR DISCHARGE, NOTIFY [facility] AT [phone], FAX DISCHARGE INFORMATION TO [facility] AT [phone]. Santino Chavis, CASE MANAGEMENT Appended by Santino Chavis on 11/25/2018 9:21 BRIDAL GOWN FITTER: CM CALLED [facility], SPOKE TO REENA, NOTIFIED THAT PT WILL BE ADMITTING TO [facility] TODAY AFTER HIS DISCHARGE HOME. SANTINO CHAVIS, CASE MANAGEMENT Appended by Santino Chavis on 11/25/2018 12:42 BRIDAL GOWN FITTER: CM SPOKE TO MÓNICA OF [facility], PT HAS ALL MEDICAL EQUIPMENT NEEDED AT HOME AND [facility] WILL ONLY BE "SWAPPING IT OUT" AND THEY ARE READY TO ADMIT PT AT HOME WHEN HE DISCHARGES. FOR DISCHARGE, NOTIFY [facility] AT [phone], FAX DISCHARGE INFORMATION TO [facility] AT [phone]. SANTINO CHAVIS, CASE MANAGEMENT DCP- Discharge Planning Updated by [email or web address]: Ngozi May on 11/24/18 1:[address] Order received for Hospice Consult for Home Hospice. Mónica with [facility] present in the hospital. I spoke with the son and he stated he had no preference of who speaks to them. I obtained verbal permission to ask Mónica to come back up and talk to him. Mónica paged overhead, with no response, I called his cell phone and he stated that he would be right up to talk with the family. The family will be waiting on the bench between [facility] 2 and the ER decker. DCP- Discharge Planning Updated by [id number]: Santino Chavis on 11/15/18 4:[address] Patient Name: TRIP HERNANDEZ Admission Status: ER Accout number: [id number] Admission Date: 11-14-2018 : 1930 Admission Diagnosis: Attending: MAGGY BLACKWELL Current LOS: 1 Anticipated DC Date: Planned Disposition: Home with Home Health Primary Insurance: MEDICARE A & B PLANNED EXTERNAL PROVIDER: [facility] Discharge Planning Comments: CM MET WITH PT IN ROOM TO DISCUSS DISCHARGE PLANNING AND NEEDS. PT REPORTS LIVING AT HOME INDEPENDENTLY WITH HIS . PT HAS WALKER, WHEELCHAIR, HOME AND PORTABLE OXYGEN AND NEBULIZER FROM [employer]. PT HAS HOME HEALTH WITH [facility]. CM DISCUSSED AVAILABILITY OF HOME HEALTH, REHAB SERVICES AND MEDICAL EQUIPMENT. PT DENIES DISCHARGE NEEDS, REPORTS HIS SON WILL PICK HIM UP FOR DISCHARGE HOME AND [facility]. FOR DISCHARGE, NOTIFY [facility] AT [phone]; FAX DISCHARGE INFORMATION TO [facility] AT [phone]. Nursing Informatics Clinical Analyst: Santino Chavis DCPIA - Discharge Planning Initial Assessment Updated by [email or web address]: Santino Chavis on 11/15/18 5:13 pm * Is the patient Alert and Oriented? Yes * How many steps to enter\\exit or inside your home? RAMP * PCP DR. MANNING * [facility] [address] * Preadmission Environment Home with Family * ADLs Partial Dependent * Partial ADLs (Assistance needed) Medication Management * Equipment Nebulizer Oxygen Walker Wheelchair * Other Equipment HOME AND PORTABLE OXYGEN [employer] - PROVIDER * List name and contact numbers for known caregivers / representatives who currently or will assist patient after discharge: DEAN HERNANDEZ, SON, * Verbal permission to speak to the caregivers and representatives has been obtained from the patient. Yes * Community resources currently utilized Home Health * Please name any agencies selected above. [facility] * Additional services required to return to the preadmission environment? No * Can the patient safely return to the preadmission environment? Yes * Has this patient been hospitalized within the prior 30 days at any hospital? Yes External Providers External Provider: [facility] [facility] Next Contact Date: 11/25/2018 Service Request Date: Service Type: Resolution: Reviewer: Comments: Last DP export: 11/26/18 8:23 Patient Name: TRIP HERNANDEZ Page 71991 at 0931 All edits/amendments must be made on the electronic document DICTATION DATE: 11/26/18929 ARMATURE WINDER AUTOMOTIVE: CLAUDIA 11/26/18929 RPT#: [id number] DC DATE:11/25/18 STATUS: DIS IN [facility] [address] [place] [address] END OF REPORT
--- NOTE | ~2018-11-14 | MORECARE ---
CASE MANAGEMENT DISCHARGE SUMMARY PATIENT: TRIP HERNANDEZ UNIT: [id number] ADM DATE: 11/14/18 AGE: 88 : 31 SEX: M ROOM/BED: D.2102 AUTHOR: BELÉN MOORE PHYSICIAN: REFERRING PHYSICIAN: MAGGY MARTIN MD DATE OF SERVICE: 11/26/18 Discharge Plan Patient Name: TRIP HERNANDEZ Facility: [facility]:[place] : 1930 Planned Disposition: Home with Hospice Anticipated Discharge Date: 11/25/18 Discharge Date: 11/25/2018 Expected LOS: 11 Initial Reviewer: [email or web address] Initial Review Date: 11/14/2018 Generated: 11/26/18 10:23 am Comments DCP- Discharge Planning Updated by [email or web address]: Santino Chavis on 11/25/18 11:[address] Patient Name: TRIP HERNANDEZ Encounter No: [id number] : 1930 Primary Insurance: MEDICARE A & B Anticipated DC Date: 11-25-2018 Planned Disposition: Home with Hospice External Planned Provider: [facility] DCP follow-up note: CM SPOKE TO [facility], PT HAS BEEN ACCEPTED FOR HOME HOSPICE AND WILL ADMIT TO HOSPICE AFTER ARRIVAL AT HOME. [facility] WILL ARRANGE ALL MEDICAL EQUIPMENT TODAY AND NOTIFY CM WHEN COMPLETED AND READY TO RECEIVE PT AT HOME. CM WAITING FOR EQUIPMENT DELIVERY TO PT'S HOME FROM [facility]. [facility] WILL CALL TODAY WHEN THEY ARE READY TO ADMIT PT AT HOME. FOR DISCHARGE, NOTIFY [facility] AT [phone], FAX DISCHARGE INFORMATION TO [facility] AT [phone]. Santino Chavsi, CASE MANAGEMENT Appended by Santino Chavis on 11/25/2018 9:21 ASSEMBLER FOR PULLER OVER HAND: CM CALLED [facility], SPOKE TO REENA, NOTIFIED THAT PT WILL BE ADMITTING TO [facility] TODAY AFTER HIS DISCHARGE HOME. SANTINO CHAVIS, CASE MANAGEMENT Appended by Santino Chavis on 11/25/2018 12:42 ASSEMBLER FOR PULLER OVER HAND: CM SPOKE TO MÓNICA OF [facility], PT HAS ALL MEDICAL EQUIPMENT NEEDED AT HOME AND [facility] WILL ONLY BE "SWAPPING IT OUT" AND THEY ARE READY TO ADMIT PT AT HOME WHEN HE DISCHARGES. FOR DISCHARGE, NOTIFY [facility] AT [phone], FAX DISCHARGE INFORMATION TO [facility] AT [phone]. SANTINO CHAVIS, CASE MANAGEMENT DCP- Discharge Planning Updated by [email or web address]: Ngozi May on 11/24/18 1:[address] Order received for Hospice Consult for Home Hospice. Mónica with [facility] present in the hospital. I spoke with the son and he stated he had no preference of who speaks to them. I obtained verbal permission to ask Mónica to come back up and talk to him. Mónica paged overhead, with no response, I called his cell phone and he stated that he would be right up to talk with the family. The family will be waiting on the bench between [facility] 2 and the ER decker. DCP- Discharge Planning Updated by [id number]: Santino Chavis on 11/15/18 4:[address] Patient Name: TRIP HERNANDEZ Admission Status: ER Accout number: [id number] Admission Date: 11-14-2018 : 1930 Admission Diagnosis: Attending: MAGGY BLACKWELL Current LOS: 1 Anticipated DC Date: Planned Disposition: Home with Home Health Primary Insurance: MEDICARE A & B PLANNED EXTERNAL PROVIDER: [facility] Discharge Planning Comments: CM MET WITH PT IN ROOM TO DISCUSS DISCHARGE PLANNING AND NEEDS. PT REPORTS LIVING AT HOME INDEPENDENTLY WITH HIS . PT HAS WALKER, WHEELCHAIR, HOME AND PORTABLE OXYGEN AND NEBULIZER FROM [employer]. PT [facility] HE[facility]. CM DISCUSSED AVAILABILITY OF HOME HEALTH, REHAB SERVICES AND MEDICAL EQUIPMENT. PT DENIES DISCHARGE NEEDS, REPORTS HIS SON WILL PICK HIM UP FOR DISCHARGE HOME AND [facility]. FOR DISCHARGE, NOTIFY [facility] AT [phone]; FAX DISCHARGE INFORMATION TO [facility] AT [phone]. Staff Veterinarian: Santino Chvais DCPIA - Discharge Planning Initial Assessment Updated by [id number]: Santino Chavis on 11/15/18 5:13 pm * Is the patient Alert and Oriented? Yes * How many steps to enter\\exit or inside your home? RAMP * PCP DR. MANNING * [facility] [address] * Preadmission Environment Home with Family * ADLs Partial Dependent * Partial ADLs (Assistance needed) Medication Management * Equipment Nebulizer Oxygen Walker Wheelchair * Other Equipment HOME AND PORTABLE OXYGEN [employer] - PROVIDER * List name and contact numbers for known caregivers / representatives who currently or will assist patient after discharge: DEAN HERNANDEZ, SON, * Verbal permission to speak to the caregivers and representatives has been obtained from the patient. Yes * Community resources currently utilized Home Health * Please name any agencies selected above. [facility] * Additional services required to return to the preadmission environment? No * Can the patient safely return to the preadmission environment? Yes * Has this patient been hospitalized within the prior 30 days at any hospital? Yes Last DP export: 11/25/18 11:47 Patient Name: TRIP HERNANDEZ Page 72741 at 0923 All edits/amendments must be made on the electronic document DICTATION DATE: 11/26/18921 FERTILIZER LOADER: CLAUDIA 11/26/18921 RPT#: [id number] DC DATE:11/25/18 STATUS: DIS IN [facility] [address] [place] [address] END OF REPORT
--- NOTE | ~2018-11-14 | MORECARE ---
CASE MANAGEMENT DISCHARGE SUMMARY PATIENT: TRIP HERNANDEZ UNIT: [id number] ADM DATE: 11/14/18 AGE: 88 : [birth year] SEX: M ROOM/BED: D.2102 AUTHOR: BELÉN MOORE PHYSICIAN: REFERRING PHYSICIAN: MAGGY MARTIN MD DATE OF SERVICE: 11/14/18 Discharge Plan Patient Name: TRIP HERNANDEZ Facility: [facility]:[place] : 1930 Planned Disposition: Anticipated Discharge Date: Discharge Date: Expected LOS: Initial Reviewer: [email or web address] Initial Review Date: 11/14/2018 Generated: 11/14/18 8:18 pm Patient Name: TRIP HERNANDEZ Page 88039 at 1919 All edits/amendments must be made on the electronic document DICTATION DATE: 11/14/181917 RAIL TECHNICIAN: CLAUDIA 11/14/181917 RPT#: [id number] DC DATE: STATUS: ADM IN [facility] [address] [place] [address] END OF REPORT
--- NOTE | ~2018-11-14 | MORECARE ---
CASE MANAGEMENT DISCHARGE SUMMARY PATIENT: TRIP HERNANDEZ UNIT: [id number] ADM DATE: 11/14/18 AGE: 88 : 31 SEX: M ROOM/BED: D.2102 AUTHOR: BELÉN MOORE PHYSICIAN: REFERRING PHYSICIAN: MAGGY MARTIN MD DATE OF SERVICE: 11/15/18 Discharge Plan Patient Name: TRIP HERNANDEZ Facility: [facility]:[place] : 1930 Planned Disposition: Home with Home Health Anticipated Discharge Date: Discharge Date: Expected LOS: Initial Reviewer: [email or web address] Initial Review Date: 11/14/2018 Generated: 11/15/18 6:17 pm DCPIA - Discharge Planning Initial Assessment Updated by [email or web address]: Santino Rodriguez on 11/15/18 5:13 pm * Is the patient Alert and Oriented? Yes * How many steps to enter\exit or inside your home? RAMP * PCP DR. MANNING * [facility] [address] * Preadmission Environment Home with Family * ADLs Partial Dependent * Partial ADLs (Assistance needed) Medication Management * Equipment Nebulizer Oxygen Walker Wheelchair * Other Equipment HOME AND PORTABLE OXYGEN [employer] - PROVIDER * List name and contact numbers for known caregivers / representatives who currently or will assist patient after discharge: DEAN HERNANDEZ, SON, * Verbal permission to speak to the caregivers and representatives has been obtained from the patient. Yes * Community resources currently utilized Home Health * Please name any agencies selected above. [facility] * Additional services required to return to the preadmission environment? No * Can the patient safely return to the preadmission environment? Yes * Has this patient been hospitalized within the prior 30 days at any hospital? Yes Last DP export: 11/14/18 6:19 Patient Name: TRIP HERNANDEZ Page [id number] at 171 All edits/amendments must be made on the electronic document DICTATION DATE: 11/15/181715 LIBRARY PARAPROFESSIONAL: CLAUDIA 11/15/181715 RPT#: [id number] DC DATE: STATUS: ADM IN [facility] [address] [place] [address] END OF REPORT
--- NOTE | ~2018-11-14 | MORECARE ---
CASE MANAGEMENT DISCHARGE SUMMARY PATIENT: TRIP HERNANDEZ UNIT: [id number] ADM DATE: 11/14/18 AGE: 88 : 31 SEX: M ROOM/BED: D.2102 AUTHOR: BELÉN MOORE PHYSICIAN: REFERRING PHYSICIAN: MAGGY MARTIN MD DATE OF SERVICE: 11/25/18 Discharge Plan Patient Name: TRIP HERNANDEZ Facility: [facility]:[place] : 1930 Planned Disposition: Home with Hospice Anticipated Discharge Date: 11/25/18 Discharge Date: Expected LOS: 11 Initial Reviewer: [email or web address] Initial Review Date: 11/14/2018 Generated: 11/25/18 1:47 pm Comments DCP- Discharge Planning Updated by [email or web address]: Santino Chavis on 11/25/18 11:[address] Patient Name: TRIP HERNANDEZ Encounter No: [id number] : 1930 Primary Insurance: MEDICARE A & B Anticipated DC Date: 11-25-2018 Planned Disposition: Home with Hospice External Planned Provider: [facility] DCP follow-up note: CM SPOKE TO [facility], PT HAS BEEN ACCEPTED FOR HOME HOSPICE AND WILL ADMIT TO HOSPICE AFTER ARRIVAL AT HOME. [facility] WILL ARRANGE ALL MEDICAL EQUIPMENT TODAY AND NOTIFY CM WHEN COMPLETED AND READY TO RECEIVE PT AT HOME. CM WAITING FOR EQUIPMENT DELIVERY TO PT'S HOME FROM [facility]. [facility] WILL CALL TODAY WHEN THEY ARE READY TO ADMIT PT AT HOME. FOR DISCHARGE, NOTIFY [facility] AT [phone], FAX DISCHARGE INFORMATION TO [facility] AT [phone]. Santino Chavis, CASE MANAGEMENT Appended by Santino Chavis on 11/25/2018 9:21 HABILITATION TRAINING SPECIALIST: CM CALLED [facility], SPOKE TO REENA, NOTIFIED THAT PT WILL BE ADMITTING TO [facility] TODAY AFTER HIS DISCHARGE HOME. SANTINO CHAVIS, CASE MANAGEMENT Appended by Santino Chavis on 11/25/2018 12:42 HABILITATION TRAINING SPECIALIST: CM SPOKE TO M[facility]NICA OF [facility], PT HAS ALL MEDICAL EQUIPMENT NEEDED AT HOME AND [facility] WILL ONLY BE "SWAPPING IT OUT" AND THEY ARE READY TO ADMIT PT AT HOME WHEN HE DISCHARGES. FOR DISCHARGE, NOTIFY [facility] AT [phone], FAX DISCHARGE INFORMATION TO [facility] AT [phone]. SANTINO CHAVIS, CASE MANAGEMENT DCP- Discharge Planning Updated by [email or web address]: Ngozi May on 11/24/18 1:[address] Order received for Hospice Consult for Home Hospice. Mónica with [facility] present in the hospital. I spoke with the son and he stated he had no preference of who speaks to them. I obtained verbal permission to ask Mónica to come back up and talk to him. Mónica paged overhead, with no response, I called his cell phone and he stated that he would be right up to talk with the family. The family will be waiting on the bench between [facility] and the ER decker. DCP- Discharge Planning Updated by [email or web address]: Santino Chaivs on 11/15/18 4:[address] Patient Name: TRIP HERNANDEZ Admission Status: ER Accout number: [id number] Admission Date: 11-14-2018 : 1930 Admission Diagnosis: Attending: MAGGY BLACKWELL Current LOS: 1 Anticipated DC Date: Planned Disposition: Home with Home Health Primary Insurance: MEDICARE A & B PLANNED EXTERNAL PROVIDER: [facility] Discharge Planning Comments: CM MET WITH PT IN ROOM TO DISCUSS DISCHARGE PLANNING AND NEEDS. PT REPORTS LIVING AT HOME INDEPENDENTLY WITH HIS . PT HAS WALKER, WHEELCHAIR, HOME AND PORTABLE OXYGEN AND NEBULIZER FROM [employer]. PT HAS HOME HEALTH WITH [facility]. CM DISCUSSED AVAILABILITY OF HOME HEALTH, REHAB SERVICES AND MEDICAL EQUIPMENT. PT DENIES DISCHARGE NEEDS, REPORTS HIS SON WILL PICK HIM UP FOR DISCHARGE HOME AND HE WILL GO HOME WITH [facility]. FOR DISCHARGE, NOTIFY [facility] AT [phone]; FAX DISCHARGE INFORMATION TO [facility] AT [phone]. Public Records Researcher: Santino Chavis DCPIA - Discharge Planning Initial Assessment Updated by [email or web address]: Santino Chavis on 11/15/18 5:13 pm * Is the patient Alert and Oriented? Yes * How many steps to enter\\exit or inside your home? RAMP * PCP DR. MANNING * Pharmacy [facility] [address] * Preadmission Environment Home with Family * ADLs Partial Dependent * Partial ADLs (Assistance needed) Medication Management * Equipment Nebulizer Oxygen Walker Wheelchair * Other Equipment HOME AND PORTABLE OXYGEN [employer] - PROVIDER * List name and contact numbers for known caregivers / representatives who currently or will assist patient after discharge: DEAN HERNANDEZ, SON, * Verbal permission to speak to the caregivers and representatives has been obtained from the patient. Yes * Community resources currently utilized Home Health * Please name any agencies selected above. [facility] * Additional services required to return to the preadmission environment? No * Can the patient safely return to the preadmission environment? Yes * Has this patient been hospitalized within the prior 30 days at any hospital? Yes Last DP export: 11/25/18 11:41 Patient Name: TRIP HERNANDEZ Page 99709 at 1247 All edits/amendments must be made on the electronic document DICTATION DATE: 11/25/181246 KNITTING MACHINE MECHANIC: CLAUDIA 11/25/187 RPT#: [id number] DC DATE: STATUS: ADM IN [facility] [address] [place] [address] END OF REPORT
--- NOTE | ~2018-11-14 | MORECARE ---
CASE MANAGEMENT DISCHARGE SUMMARY PATIENT: TRIP HERNANDEZ UNIT: [id number] ADM DATE: 11/14/18 AGE: 88 : 31 SEX: M ROOM/BED: D.2102 AUTHOR: OSCARDOC PHYSICIAN: REFERRING PHYSICIAN: MAGGY MARTIN MD DATE OF SERVICE: 11/26/18 Discharge Plan Patient Name: TRIP HERNANDEZ Facility: [facility]:[place] : 1930 Planned Disposition: Home with Hospice Anticipated Discharge Date: 11/25/18 Discharge Date: 11/25/2018 Expected LOS: 11 Initial Reviewer: [email or web address] Initial Review Date: 11/14/2018 Generated: 11/26/18 10:37 am Comments DCP- Discharge Planning Updated by [email or web address]: Santino Chavis on 11/26/18 8:[address] Patient Name: TRIP HERNANDEZ Encounter No: [id number] : 1930 Primary Insurance: MEDICARE A & B Anticipated DC Date: 11-25-2018 Planned Disposition: Home with Hospice External Planned Provider: [facility] DCP follow-up note: CM CALLED MICHELLE OF [facility] AT [phone], THEY DID ADMIT PT YESTERDAY FOR HOME HOSPICE ARRANGED. CM FAXED DISCHARGE INFORMATION TO [facility] AT [phone]. SANTINO CHAVIS, CASE MANAGEMENT DCP- Discharge Planning Updated by [id number]: Santino Chavis on 11/25/18 11:[address] Patient Name: TRIP HERNANDEZ Encounter No: [id number] : 1930 Primary Insurance: MEDICARE A & B Anticipated DC Date: 11-25-2018 Planned Disposition: Home with Hospice External Planned Provider: [facility] DCP follow-up note: CM SPOKE TO MÓNICA OF [facility], PT HAS BEEN ACCEPTED FOR HOME HOSPICE AND WILL ADMIT TO HOSPICE AFTER ARRIVAL AT HOME. [facility] WILL ARRANGE ALL MEDICAL EQUIPMENT TODAY AND NOTIFY CM WHEN COMPLETED AND READY TO RECEIVE PT AT HOME. CM WAITING FOR EQUIPMENT DELIVERY TO PT'S HOME FROM [facility]. [facility] WILL CALL TODAY WHEN THEY ARE READY TO ADMIT PT AT HOME. FOR DISCHARGE, NOTIFY [facility] AT [phone], FAX DISCHARGE INFORMATION TO [facility] AT [phone]. Santino Chavis, CASE MANAGEMENT Appended by Santino Chavis on 11/25/2018 9:21 SERVICE DELIVERY MANAGER: CM CALLED [facility], SPOKE TO REENA, NOTIFIED THAT PT WILL BE ADMITTING TO [facility] TODAY AFTER HIS DISCHARGE HOME. SANTINO CHAVIS, CASE MANAGEMENT Appended by Santino Chavis on 11/25/2018 12:42 SERVICE DELIVERY MANAGER: CM SPOKE TO MÓNICA OF [facility], PT HAS ALL MEDICAL EQUIPMENT NEEDED AT HOME AND [facility] WILL ONLY BE "SWAPPING IT OUT" AND THEY ARE READY TO ADMIT PT AT HOME WHEN HE DISCHARGES. FOR DISCHARGE, NOTIFY [facility] AT [phone], FAX DISCHARGE INFORMATION TO [facility] AT [phone]. SANTINO CHAVIS, CASE MANAGEMENT DCP- Discharge Planning Updated by [email or web address]: Ngozi May on 11/24/18 1:[address] Order received for Hospice Consult for Home Hospice. Mónica with [facility] present in the hospital. I spoke with the son and he stated he had no preference of who speaks to them. I obtained verbal permission to ask Mónica to come back up and talk to him. Mónica paged overhead, with no response, I called his cell phone and he stated that he would be right up to talk with the family. The family will be waiting on the bench between [facility] and the ER decker. DCP- Discharge Planning Updated by [email or web address]: Santino Chavis on 11/15/18 4:[address] Patient Name: TRIP HERNANDEZ Admission Status: ER Accout number: [id number] Admission Date: 11-14-2018 : 1930 Admission Diagnosis: Attending: MAGGY BLACKWELL Current LOS: 1 Anticipated DC Date: Planned Disposition: Home with Home Health Primary Insurance: MEDICARE A & B PLANNED EXTERNAL PROVIDER: [facility] Discharge Planning Comments: CM MET WITH PT IN ROOM TO DISCUSS DISCHARGE PLANNING AND NEEDS. PT REPORTS LIVING AT HOME INDEPENDENTLY WITH HIS . PT HAS WALKER, WHEELCHAIR, HOME AND PORTABLE OXYGEN AND NEBULIZER FROM [employer]. PT HAS HOME HEALTH WITH [facility]. CM DISCUSSED AVAILABILITY OF HOME HEALTH, REHAB SERVICES AND MEDICAL EQUIPMENT. PT DENIES DISCHARGE NEEDS, REPORTS HIS SON WILL PICK HIM UP FOR DISCHARGE HOME AND HE WILL GO HOME WITH [facility]. FOR DISCHARGE, NOTIFY [facility] AT [phone]; FAX DISCHARGE INFORMATION TO [facility] AT [phone]. Cloth Picker: Santino Chavis DCPIA - Discharge Planning Initial Assessment Updated by [email or web address]: Santino Chavis on 11/15/18 5:13 pm * Is the patient Alert and Oriented? Yes * How many steps to enter\\exit or inside your home? RAMP * PCP DR. MANNING * Pharmacy [facility] [address] * Preadmission Environment Home with Family * ADLs Partial Dependent * Partial ADLs (Assistance needed) Medication Management * Equipment Nebulizer Oxygen Walker Wheelchair * Other Equipment HOME AND PORTABLE OXYGEN [employer] - PROVIDER * List name and contact numbers for known caregivers / representatives who currently or will assist patient after discharge: DEAN HERNANDEZ, SON, * Verbal permission to speak to the caregivers and representatives has been obtained from the patient. Yes * Community resources currently utilized Home Health * Please name any agencies selected above. [facility] * Additional services required to return to the preadmission environment? No * Can the patient safely return to the preadmission environment? Yes * Has this patient been hospitalized within the prior 30 days at any hospital? Yes Last DP export: 11/26/18 8:31 Patient Name: TRIP HERNANDEZ Page 62856 at 0937 All edits/amendments must be made on the electronic document DICTATION DATE: 11/26/18936 PORTFOLIO ADMINISTRATOR: CLAUDIA 11/26/18936 RPT#: [id number] DC DATE:11/25/18 STATUS: DIS IN [facility] [address] [place] [address] END OF REPORT
--- NOTE | ~2018-11-14 | MORECARE ---
CASE MANAGEMENT DISCHARGE SUMMARY PATIENT: TRIP HERNANDEZ UNIT: [id number] ADM DATE: 11/14/18 AGE: 88 : 31 SEX: M ROOM/BED: D.2102 AUTHOR: BELÉN MOORE PHYSICIAN: REFERRING PHYSICIAN: MAGGY MARTIN MD DATE OF SERVICE: 11/25/18 Discharge Plan Patient Name: TRIP HERNANDEZ Facility: [facility]:[place] : 1930 Planned Disposition: Home with Hospice Anticipated Discharge Date: 11/25/18 Discharge Date: Expected LOS: 11 Initial Reviewer: [email or web address] Initial Review Date: 11/14/2018 Generated: 11/25/18 1:41 pm Comments DCP- Discharge Planning Updated by [email or web address]: Santino Chavis on 11/25/18 8:[address] Patient Name: TRIP HERNANDEZ Encounter No: [id number] : 1930 Primary Insurance: MEDICARE A & B Anticipated DC Date: 11-25-2018 Planned Disposition: Home with Hospice External Planned Provider: [facility] DCP follow-up note: CM SPOKE TO MÓNICA OF [facility], PT HAS BEEN ACCEPTED FOR HOME HOSPICE AND WILL ADMIT TO HOSPICE AFTER ARRIVAL AT HOME. [facility] WILL ARRANGE ALL MEDICAL EQUIPMENT TODAY AND NOTIFY CM WHEN COMPLETED AND READY TO RECEIVE PT AT HOME. CM WAITING FOR EQUIPMENT DELIVERY TO PT'S HOME FROM [facility]. [facility] WILL CALL TODAY WHEN THEY ARE READY TO ADMIT PT AT HOME. FOR DISCHARGE, NOTIFY [facility] AT [phone], FAX DISCHARGE INFORMATION TO [facility] AT [phone]. Santino Chavis, CASE MANAGEMENT Appended by Santino Chavis on 11/25/2018 9:21 BUSINESS MANAGEMENT INTERN: CM CALLED [facility], SPOKE TO REENA, NOTIFIED THAT PT WILL BE ADMITTING TO [facility] TODAY AFTER HIS DISCHARGE HOME. SANTINO CHAVIS, CASE MANAGEMENT DCP- Discharge Planning Updated by [email or web address]: Ngozi May on 11/24/18 1:[address] Order received for Hospice Consult for Home Hospice. Mónica with [facility] present in the hospital. I spoke with the son and he stated he had no preference of who speaks to them. I obtained verbal permission to ask Mónica to come back up and talk to him. Mónica paged overhead, with no response, I called his cell phone and he stated that he would be right up to talk with the family. The family will be waiting on the bench between [facility] 2 and the ER decker. DCP- Discharge Planning Updated by [id number]: Santino Chavis on 11/15/18 4:[address] Patient Name: TRIP HERNANDEZ Admission Status: ER Accout number: [id number] Admission Date: 11-14-2018 : 1930 Admission Diagnosis: Attending: MAGGY BLACKWELL Current LOS: 1 Anticipated DC Date: Planned Disposition: Home with Home Health Primary Insurance: MEDICARE A & B PLANNED EXTERNAL PROVIDER: [facility] Discharge Planning Comments: CM MET WITH PT IN ROOM TO DISCUSS DISCHARGE PLANNING AND NEEDS. PT REPORTS LIVING AT HOME INDEPENDENTLY WITH HIS . PT HAS WALKER, WHEELCHAIR, HOME AND PORTABLE OXYGEN AND NEBULIZER FROM [facility]. PT HAS HOME HEALTH WITH [facility]. CM DISCUSSED AVAILABILITY OF HOME HEALTH, REHAB SERVICES AND MEDICAL EQUIPMENT. PT DENIES DISCHARGE NEEDS, REPORTS HIS SON WILL PICK HIM UP FOR DISCHARGE HOME AND HE WILL GO HOME WITH [facility]. FOR DISCHARGE, NOTIFY [facility] AT [phone]; FAX DISCHARGE INFORMATION TO [facility] AT [phone]. Coffee Taster: Santino Chavis DCPIA - Discharge Planning Initial Assessment Updated by [email or web address]: Santino Chavis on 11/15/18 5:13 pm * Is the patient Alert and Oriented? Yes * How many steps to enter\exit or inside your home? RAMP * PCP DR. MANNING * [facility] * Preadmission Environment Home with Family * ADLs Partial Dependent * Partial ADLs (Assistance needed) Medication Management * Equipment Nebulizer Oxygen Walker Wheelchair * Other Equipment HOME AND PORTABLE OXYGEN [employer] - PROVIDER * List name and contact numbers for known caregivers / representatives who currently or will assist patient after discharge: EDAN HERNANDEZ, SON, * Verbal permission to speak to the caregivers and representatives has been obtained from the patient. Yes * Community resources currently utilized Home Health * Please name any agencies selected above. [facility] * Additional services required to return to the preadmission environment? No * Can the patient safely return to the preadmission environment? Yes * Has this patient been hospitalized within the prior 30 days at any hospital? Yes Last DP export: 11/25/18 8:25 Patient Name: TRIP HERNANDEZ Page 42667 at 1241 All edits/amendments must be made on the electronic document DICTATION DATE: 11/25/181239 EMAIL MARKETING PROCESSOR: CLAUDIA 11/25/18 1240 RPT#: [id number] DC DATE: STATUS: ADM IN [facility] [address] [place] [address] END OF REPORT
--- NOTE | ~2018-11-14 | MORECARE ---
CASE MANAGEMENT DISCHARGE SUMMARY PATIENT: TRIP HERNANDEZ UNIT: [id number] ADM DATE: 11/14/18 AGE: 88 : 31 SEX: M ROOM/BED: D.2102 AUTHOR: OSCAR,DOC PHYSICIAN: REFERRING PHYSICIAN: MAGGY MARTIN MD DATE OF SERVICE: 11/15/18 Discharge Plan Patient Name: TRIP HERNANDEZ Facility: [facility]:[place] : 1930 Planned Disposition: Home with Home Health Anticipated Discharge Date: Discharge Date: Expected LOS: Initial Reviewer: [email or web address] Initial Review Date: 11/14/2018 Generated: 11/15/18 6:25 pm Comments DCP- Discharge Planning Updated by [email or web address]: Santino Rodriguez on 11/15/18 4:[address] Patient Name: TRIP HERNANDEZ Admission Status: ER Accout number: [id number] Admission Date: 11-14-2018 : 1930 Admission Diagnosis: Attending: MAGGY BLACKWELL Current LOS: 1 Anticipated DC Date: Planned Disposition: Home with Home Health Primary Insurance: MEDICARE A & B PLANNED EXTERNAL PROVIDER: [facility] Discharge Planning Comments: CM MET WITH PT IN ROOM TO DISCUSS DISCHARGE PLANNING AND NEEDS. PT REPORTS LIVING AT HOME INDEPENDENTLY WITH HIS . PT HAS WALKER, WHEELCHAIR, HOME AND PORTABLE OXYGEN AND NEBULIZER FROM [employer]. PT HAS HOME HEALTH WITH [facility]. CM DISCUSSED AVAILABILITY OF HOME HEALTH, REHAB SERVICES AND MEDICAL EQUIPMENT. PT DENIES DISCHARGE NEEDS, REPORTS HIS SON WILL PICK HIM UP FOR DISCHARGE HOME AND HE WILL GO HOME WITH [facility]. FOR DISCHARGE, NOTIFY [facility] AT [phone]; FAX DISCHARGE INFORMATION TO [facility] AT [phone]. Doorperson Or Luggage Porter: Santino Rodriguez DCPIA - Discharge Planning Initial Assessment Updated by [email or web address]: Santino Rodriguez on 11/15/18 5:13 pm * Is the patient Alert and Oriented? Yes * How many steps to enter\exit or inside your home? RAMP * PCP DR. MANNING * Pharmacy [facility] [address] * Preadmission Environment Home with Family * ADLs Partial Dependent * Partial ADLs (Assistance needed) Medication Management * Equipment Nebulizer Oxygen Walker Wheelchair * Other Equipment HOME AND PORTABLE OXYGEN [employer] - PROVIDER * List name and contact numbers for known caregivers / representatives who currently or will assist patient after discharge: DEAN HERNANDEZ, GERMAN, * Verbal permission to speak to the caregivers and representatives has been obtained from the patient. Yes * Community resources currently utilized Home Health * Please name any agencies selected above. [facility] * Additional services required to return to the preadmission environment? No * Can the patient safely return to the preadmission environment? Yes * Has this patient been hospitalized within the prior 30 days at any hospital? Yes External Providers External Provider: [facility] Next Contact Date: 11/16/2018 Service Request Date: Service Type: Resolution: Reviewer: Comments: Last DP export: 11/15/18 4:17 Patient Name: TRIP HERNANDEZ Page 64569 at 1725 All edits/amendments must be made on the electronic document DICTATION DATE: 11/15/181723 REAL ESTATE SERVICES COORDINATOR: CLAUDIA 11/15/181723 RPT#: [id number] DC DATE: STATUS: ADM IN [facility] [address] [place] [address] END OF REPORT
[~2018-11-14 13:55] MED LIST changes: +VIBRAMYCIN 100100 MG PO
[2018-11-14 14:00] VITALS: BP 140/89
[2018-11-14 14:45] VITALS: BP 132/81
[2018-11-14 15:39] LABS: BASOPHILS 0.2 % (0-2); EOSINOPHILS 0.8 % (0-7); HEMATOCRIT 39.4 % (42.0-54.0); HEMOGLOBIN 13.3 g/dL (13.5-17.5); IMMATURE GRANULOCYTES 0.2 % (0-5); LYMPHOCYTES 18.1 % (15-50); MCH 30.4 pg (26.0-34.0); MCHC 33.8 g/dL (31.0-37.0); MCV 90.2 fL (80.0-100.0); MEAN PLATELET VOLUME 11.4 fL (7.4-10.4); MONOCYTES 12.2 % (2-11); NEUTROPHILS 68.5 % (40-80); PLATELET COUNT 92 10x3/uL (130-400); RBC 4.37 10x6/uL (4.20-6.10); RDW 14.8 % (11.5-14.5); WBC 6.3 10x3/uL (4.8-10.8)
[2018-11-14 15:50] VITALS: BP 126/60
[2018-11-14 16:03] LABS: ALBUMIN 3.8 g/dL (3.4-5.0); ALKALINE PHOSPHATASE 83 U/L (46-116); ALT (SGPT) 25 U/L (10-68); BILIRUBIN - TOTAL 0.68 mg/dL (0.2-1.3); CALC OSMOLALITY 280 mosm/kg (275-300); CALCIUM 8.8 mg/dL (8.5-10.1); CARBON DIOXIDE 23.5 mmol/L (21.0-32.0); CHLORIDE - SERUM 99 mmol/L (98-107); CREATININE - SERUM 1.7 mg/dL (0.6-1.3); GLUCOSE 112 mg/dL (74-106); POTASSIUM - SERUM 4.6 mmol/L (3.5-5.1); PROTEIN - SERUM 6.9 g/dL (6.4-8.2); SODIUM 137 mmol/L (136-145); UREA NITROGEN 30 mg/dL (7-18); eGFR NON AFRICAN AMERICAN 41 mL/min (90-120)
[2018-11-14 16:11] LABS: APTT 32.6 SECONDS (22.8-39.4); INR 1.17 (0.85-1.17); PROTIME 14.4 SECONDS (11.6-15.0)
[2018-11-14 16:18] LABS: CKMB 1.5 U/L (0.0-3.6); CREATINE KINASE 53 UL (21-232); PRO BNP 8728 pg/mL (0-450); TROPONIN-I 0.024 ng/mL (0.000-0.060)
[2018-11-14 17:00] VITALS: BP 102/55; BP 126/60
[2018-11-14 18:03] LABS: APPEARANCE CLEAR (CLEAR); BILIRUBIN NEGATIVE (NEGATIVE); COLOR STRAW (YELLOW); GLUCOSE NEGATIVE (NEGATIVE); KETONE NEGATIVE (NEGATIVE); NITRITE NEGATIVE (NEGATIVE); PROTEIN NEGATIVE (NEGATIVE); SPECIFIC GRAVITY 1.015 (1.005-1.020); UROBILINOGEN NORMAL (NORMAL)
[2018-11-14 18:14] VITALS: BP 129/63
[2018-11-14] MEDS ORDERED: CARDIZEM120 MG PO (21:29)
[2018-11-14 22:04] VITALS: BP 102/55; BMI 23.6
[2018-11-15] VITALS: BP 105/55
[2018-11-15 05:51] VITALS: BP 106/47
[2018-11-15 06:02] LABS: BASOPHILS 0.4 % (0-2); EOSINOPHILS 0.9 % (0-7); HEMATOCRIT 37.2 % (42.0-54.0); HEMOGLOBIN 12.4 g/dL (13.5-17.5); IMMATURE GRANULOCYTES 0.2 % (0-5); LYMPHOCYTES 17.1 % (15-50); MCHC 33.3 g/dL (31.0-37.0); MCV 90.1 fL (80.0-100.0); MEAN PLATELET VOLUME 11.6 fL (7.4-10.4); MONOCYTES 13.9 % (2-11); NEUTROPHILS 67.5 % (40-80); PLATELET COUNT 82 10x3/uL (130-400); RBC 4.13 10x6/uL (4.20-6.10); WBC 5.7 10x3/uL (4.8-10.8)
[2018-11-15 06:17] LABS: ANION GAP 14.7 mmol/L (8-16); CALCIUM 8.7 mg/dL (8.5-10.1); CARBON DIOXIDE 26.1 mmol/L (21.0-32.0); CREATININE - SERUM 1.6 mg/dL (0.6-1.3); POTASSIUM - SERUM 3.8 mmol/L (3.5-5.1)
[2018-11-15 08:58] VITALS: BP 117/45
[2018-11-15 11:39] VITALS: BP 112/43
[2018-11-15 12:26] VITALS: BMI 23.5
[2018-11-15 15:35] VITALS: Ht 180.3 cm; Wt 74.2 kg
[2018-11-15 20:00] VITALS: BP 98/45
[2018-11-16] VITALS: BP 97/39
[2018-11-16 05:38] LABS: BASOPHILS 0.2 % (0-2); EOSINOPHILS 1.3 % (0-7); HEMATOCRIT 35.7 % (42.0-54.0); HEMOGLOBIN 12.1 g/dL (13.5-17.5); IMMATURE GRANULOCYTES 0.2 % (0-5); LYMPHOCYTES 17.7 % (15-50); MCH 30.1 pg (26.0-34.0); MCHC 33.9 g/dL (31.0-37.0); MCV 88.8 fL (80.0-100.0); MEAN PLATELET VOLUME 11.6 fL (7.4-10.4); MONOCYTES 14.5 % (2-11); NEUTROPHILS 66.1 % (40-80); PLATELET COUNT 85 10x3/uL (130-400); RBC 4.02 10x6/uL (4.20-6.10); WBC 5.2 10x3/uL (4.8-10.8)
[2018-11-16 06:03] LABS: % SATURATION 17 % (15-55); IRON 44 ug/dl (35-150); TOTAL IRON BIND CAPACITY 253 ug/dl (260-445); UNSAT IRON BIND CAPACITY 209 ug/dl (150-375)
[2018-11-16 06:16] LABS: ANION GAP 18.7 mmol/L (8-16); CALCIUM 8.7 mg/dL (8.5-10.1); CARBON DIOXIDE 24.6 mmol/L (21.0-32.0); CREATININE - SERUM 1.9 mg/dL (0.6-1.3); MAGNESIUM - SERUM 2.1 mg/dL (1.8-2.4); PHOSPHOROUS 5.4 mg/dL (2.5-4.9); POTASSIUM - SERUM 3.3 mmol/L (3.5-5.1)
[2018-11-16 07:53] LABS: APTT 34.2 SECONDS (22.8-39.4); INR 1.28 (0.85-1.17); PROTIME 15.4 SECONDS (11.6-15.0)
[2018-11-16 07:54] LABS: D-DIMER-QUANTITATIVE 3.6 ug/mLFEU (0.20-0.54)
[2018-11-16 08:13] VITALS: BP 108/48
[2018-11-16 11:57] VITALS: BP 106/58
[2018-11-16 16:16] VITALS: BP 128/46
[2018-11-16 19:59] LABS: CKMB 0.9 U/L (0.0-3.6); CREATINE KINASE 50 UL (21-232); TROPONIN-I 0.036 ng/mL (0.000-0.060)
[2018-11-16 21:09] VITALS: BP 104/36
[2018-11-17 04:00] VITALS: BP 116/57
[2018-11-17 05:32] LABS: BASOPHILS 0.5 % (0-2); EOSINOPHILS 1.3 % (0-7); HEMATOCRIT 37.7 % (42.0-54.0); HEMOGLOBIN 12.5 g/dL (13.5-17.5); IMMATURE GRANULOCYTES 0.5 % (0-5); LYMPHOCYTES 16.8 % (15-50); MCH 29.8 pg (26.0-34.0); MCHC 33.2 g/dL (31.0-37.0); MEAN PLATELET VOLUME 11.3 fL (7.4-10.4); MONOCYTES 13.3 % (2-11); NEUTROPHILS 67.6 % (40-80); PLATELET COUNT 85 10x3/uL (130-400); RBC 4.19 10x6/uL (4.20-6.10); WBC 6.3 10x3/uL (4.8-10.8)
[2018-11-17 05:39] LABS: ANION GAP 17.5 mmol/L (8-16); CALCIUM 8.8 mg/dL (8.5-10.1); CARBON DIOXIDE 25.1 mmol/L (21.0-32.0); CREATININE - SERUM 1.9 mg/dL (0.6-1.3); MAGNESIUM - SERUM 1.9 mg/dL (1.8-2.4); POTASSIUM - SERUM 3.6 mmol/L (3.5-5.1)
[2018-11-17 09:00] VITALS: BP 98/52
[2018-11-17 12:18] VITALS: BP 109/46
[2018-11-17 18:44] VITALS: BP 95/42
[2018-11-17 20:00] VITALS: BP 101/62
[2018-11-18] VITALS (7 sets, daily range): BP systolic 94–145; BP diastolic 40–76
[2018-11-18 06:00] LABS: BASOPHILS 0.4 % (0-2); EOSINOPHILS 0.4 % (0-7); HEMATOCRIT 36.4 % (42.0-54.0); HEMOGLOBIN 12.2 g/dL (13.5-17.5); IMMATURE GRANULOCYTES 0.2 % (0-5); LYMPHOCYTES 16.7 % (15-50); MCHC 33.5 g/dL (31.0-37.0); MCV 89.4 fL (80.0-100.0); MEAN PLATELET VOLUME 11.6 fL (7.4-10.4); NEUTROPHILS 69.3 % (40-80); PLATELET COUNT 88 10x3/uL (130-400); RBC 4.07 10x6/uL (4.20-6.10); RDW 15.1 % (11.5-14.5); WBC 5.6 10x3/uL (4.8-10.8)
[2018-11-18 06:12] LABS: ANION GAP 17.5 mmol/L (8-16); CALCIUM 9.1 mg/dL (8.5-10.1); CREATININE - SERUM 1.9 mg/dL (0.6-1.3); POTASSIUM - SERUM 3.5 mmol/L (3.5-5.1)
[2018-11-19 04:03] LABS: BASOPHILS 0.6 % (0-2); EOSINOPHILS 0.4 % (0-7); HEMOGLOBIN 12.9 g/dL (13.5-17.5); IMMATURE GRANULOCYTES 0.3 % (0-5); LYMPHOCYTES 21.2 % (15-50); MCH 30.4 pg (26.0-34.0); MCHC 33.9 g/dL (31.0-37.0); MCV 89.6 fL (80.0-100.0); MEAN PLATELET VOLUME 12.3 fL (7.4-10.4); MONOCYTES 12.6 % (2-11); NEUTROPHILS 64.9 % (40-80); PLATELET COUNT 93 10x3/uL (130-400); RBC 4.24 10x6/uL (4.20-6.10); RDW 15.2 % (11.5-14.5)
[2018-11-19 04:13] LABS: ANION GAP 19.9 mmol/L (8-16); CALCIUM 9.1 mg/dL (8.5-10.1); CARBON DIOXIDE 21.8 mmol/L (21.0-32.0); CREATININE - SERUM 1.9 mg/dL (0.6-1.3); POTASSIUM - SERUM 3.7 mmol/L (3.5-5.1); WBC 7.1 10x3/uL (4.8-10.8)
[2018-11-19 09:20] VITALS: BP 115/70
[2018-11-19 18:29] VITALS: BP 103/54
[2018-11-19 19:59] VITALS: BP 124/57
[2018-11-19 23:45] VITALS: BP 140/47
[2018-11-20] VITALS (13 sets, daily range): BP systolic 90–124; BP diastolic 42–72
[2018-11-20 05:15] LABS: ANION GAP 14.1 mmol/L (8-16); CALCIUM 8.8 mg/dL (8.5-10.1); CREATININE - SERUM 1.7 mg/dL (0.6-1.3); PROTEIN - SERUM 6.3 g/dL (6.4-8.2)
[2018-11-20 05:19] LABS: INR 1.29 (0.85-1.17); PROTIME 15.6 SECONDS (11.6-15.0)
[2018-11-20 05:20] LABS: APTT 33.2 SECONDS (22.8-39.4); POTASSIUM - SERUM 3.1 mmol/L (3.5-5.1)
[2018-11-20 05:33] LABS: BASOPHILS 0.3 % (0-2); EOSINOPHILS 0.6 % (0-7); HEMOGLOBIN 12.4 g/dL (13.5-17.5); IMMATURE GRANULOCYTES 0.3 % (0-5); LYMPHOCYTES 19.8 % (15-50); MCH 30.2 pg (26.0-34.0); MCHC 33.5 g/dL (31.0-37.0); MCV 90.2 fL (80.0-100.0); MEAN PLATELET VOLUME 11.5 fL (7.4-10.4); MONOCYTES 13.9 % (2-11); NEUTROPHILS 65.1 % (40-80); RDW 15.3 % (11.5-14.5); WBC 6.5 10x3/uL (4.8-10.8)
[2018-11-20 05:34] LABS: PLATELET COUNT 74 10x3/uL (130-400)
[2018-11-20 11:56] LABS: PROTEIN - BODY FLUID 2.9 G/DL
[2018-11-20 12:45] LABS: MACROPHAGES BF 7 %; MESOTHELIALS BF 15 %; NEUT - BF 16 %
[2018-11-21 03:55] VITALS: BP 104/52
[2018-11-21 05:51] LABS: BASOPHILS 0.4 % (0-2); EOSINOPHILS 0.5 % (0-7); HEMATOCRIT 39.3 % (42.0-54.0); HEMOGLOBIN 13.1 g/dL (13.5-17.5); IMMATURE GRANULOCYTES 0.3 % (0-5); LYMPHOCYTES 16.4 % (15-50); MCH 30.3 pg (26.0-34.0); MCHC 33.3 g/dL (31.0-37.0); MEAN PLATELET VOLUME 11.1 fL (7.4-10.4); MONOCYTES 10.2 % (2-11); NEUTROPHILS 72.2 % (40-80); PLATELET COUNT 69 10x3/uL (130-400); RBC 4.32 10x6/uL (4.20-6.10); RDW 15.4 % (11.5-14.5); WBC 7.9 10x3/uL (4.8-10.8)
[2018-11-21 06:08] LABS: ANION GAP 16.3 mmol/L (8-16); CALCIUM 8.9 mg/dL (8.5-10.1); CARBON DIOXIDE 25.3 mmol/L (21.0-32.0)
[2018-11-21 06:20] LABS: POTASSIUM - SERUM 3.6 mmol/L (3.5-5.1)
[2018-11-21 11:34] VITALS: BP 101/55
[2018-11-21 12:28] LABS: % SATURATION 20 % (15-55); IRON 51 ug/dl (35-150); TOTAL IRON BIND CAPACITY 246 ug/dl (260-445); UNSAT IRON BIND CAPACITY 195 ug/dl (150-375)
[2018-11-21 17:07] VITALS: BP 117/45
[2018-11-21 19:59] VITALS: BP 108/47
[2018-11-21 23:45] VITALS: BP 113/51
[2018-11-22 03:45] VITALS: BP 117/48
[2018-11-22 06:00] LABS: BASOPHILS 0.3 % (0-2); EOSINOPHILS 0.3 % (0-7); HEMATOCRIT 41.3 % (42.0-54.0); HEMOGLOBIN 13.6 g/dL (13.5-17.5); IMMATURE GRANULOCYTES 0.4 % (0-5); LYMPHOCYTES 12.3 % (15-50); MCHC 32.9 g/dL (31.0-37.0); MEAN PLATELET VOLUME 11.3 fL (7.4-10.4); MONOCYTES 10.3 % (2-11); NEUTROPHILS 76.4 % (40-80); PLATELET COUNT 70 10x3/uL (130-400); RBC 4.54 10x6/uL (4.20-6.10); RDW 15.3 % (11.5-14.5); WBC 7.9 10x3/uL (4.8-10.8)
[2018-11-22 06:22] LABS: ANION GAP 14.6 mmol/L (8-16); CALCIUM 9.1 mg/dL (8.5-10.1); CARBON DIOXIDE 26.2 mmol/L (21.0-32.0); CREATININE - SERUM 1.9 mg/dL (0.6-1.3); POTASSIUM - SERUM 3.8 mmol/L (3.5-5.1)
[2018-11-22 08:41] VITALS: BP 101/39
[2018-11-22 12:16] VITALS: BP 122/44
[2018-11-22 16:31] VITALS: BP 93/40
[2018-11-22 19:00] VITALS: BP 106/51
[2018-11-23 00:23] VITALS: BP 111/63
[2018-11-23 05:03] VITALS: BP 101/54
[2018-11-23 05:09] LABS: BASOPHILS 0.4 % (0-2); EOSINOPHILS 0.9 % (0-7); HEMATOCRIT 36.5 % (42.0-54.0); HEMOGLOBIN 12.3 g/dL (13.5-17.5); IMMATURE GRANULOCYTES 0.3 % (0-5); LYMPHOCYTES 17.5 % (15-50); MCH 30.1 pg (26.0-34.0); MCHC 33.7 g/dL (31.0-37.0); MCV 89.5 fL (80.0-100.0); MEAN PLATELET VOLUME 11.2 fL (7.4-10.4); MONOCYTES 10.3 % (2-11); NEUTROPHILS 70.6 % (40-80); PLATELET COUNT 56 10x3/uL (130-400); RBC 4.08 10x6/uL (4.20-6.10); RDW 15.3 % (11.5-14.5); WBC 7.6 10x3/uL (4.8-10.8)
[2018-11-23 05:49] LABS: ANION GAP 14.9 mmol/L (8-16); CALCIUM 8.7 mg/dL (8.5-10.1); CARBON DIOXIDE 26.7 mmol/L (21.0-32.0); CREATININE - SERUM 1.8 mg/dL (0.6-1.3); POTASSIUM - SERUM 3.6 mmol/L (3.5-5.1)
[2018-11-23 08:35] VITALS: BP 112/53
[2018-11-23 13:20] VITALS: BP 112/49
[2018-11-23 14:07] LABS: ACID FAST SMEAR Negative (()); AFB SPECIMEN PROCESSING Not Indicated (())
[2018-11-23 19:45] VITALS: BP 100/49
[2018-11-23 23:30] VITALS: BP 110/35
[2018-11-24 04:05] VITALS: BP 100/39
[2018-11-24 06:46] LABS: BASOPHILS 0.3 % (0-2); EOSINOPHILS 0.8 % (0-7); HEMATOCRIT 38.8 % (42.0-54.0); HEMOGLOBIN 12.8 g/dL (13.5-17.5); IMMATURE GRANULOCYTES 0.1 % (0-5); LYMPHOCYTES 12.7 % (15-50); MCV 90.9 fL (80.0-100.0); MEAN PLATELET VOLUME 12.4 fL (7.4-10.4); MONOCYTES 10.6 % (2-11); NEUTROPHILS 75.5 % (40-80); PLATELET COUNT 61 10x3/uL (130-400); RBC 4.27 10x6/uL (4.20-6.10); RDW 15.4 % (11.5-14.5); WBC 7.6 10x3/uL (4.8-10.8)
[2018-11-24 07:29] LABS: CALCIUM 8.9 mg/dL (8.5-10.1); CARBON DIOXIDE 27.4 mmol/L (21.0-32.0); CREATININE - SERUM 1.7 mg/dL (0.6-1.3); POTASSIUM - SERUM 3.4 mmol/L (3.5-5.1)
[2018-11-24 09:51] VITALS: BP 90/34
[2018-11-24 10:10] LABS: FUNGUS STAIN Final report (())
[2018-11-24 14:12] VITALS: BP 96/46
[2018-11-24 19:00] VITALS: BP 103/45
[2018-11-25 00:44] VITALS: BP 102/47
[2018-11-25 04:34] VITALS: BP 110/44
[2018-11-25 05:30] LABS: BASOPHILS 0.4 % (0-2); EOSINOPHILS 1.3 % (0-7); HEMOGLOBIN 12.7 g/dL (13.5-17.5); IMMATURE GRANULOCYTES 0.1 % (0-5); LYMPHOCYTES 15.1 % (15-50); MCHC 33.4 g/dL (31.0-37.0); MCV 89.8 fL (80.0-100.0); MONOCYTES 10.7 % (2-11); NEUTROPHILS 72.4 % (40-80); PLATELET COUNT 58 10x3/uL (130-400); RBC 4.23 10x6/uL (4.20-6.10); RDW 15.4 % (11.5-14.5); WBC 6.8 10x3/uL (4.8-10.8)
[2018-11-25 05:56] LABS: ANION GAP 14.4 mmol/L (8-16); CALCIUM 8.6 mg/dL (8.5-10.1); CARBON DIOXIDE 25.2 mmol/L (21.0-32.0); CREATININE - SERUM 1.7 mg/dL (0.6-1.3); POTASSIUM - SERUM 3.6 mmol/L (3.5-5.1)
[2018-11-25 08:48] VITALS: BP 91/44
[2018-11-25 12:00] VITALS: BP 109/47
== END 2018-11-25 15:27 | disposition home health service (06) | DRG 291 ==
LOC: D.ER 13:55 → D.EDHOLD 17:07 → D.M2 17:07
PROVIDERS: Emergency Medicine; General Practice; Internal Medicine Hematology & Oncology; Internal Medicine Nephrology; Internal Medicine Pulmonary Disease; Specialist
PROC: 0W993ZZ Drainage of Right Pleural Cavity, Percutaneous Approach (ICD-10-PCS; principal; 2018-11-20 09:45)
DX: I13.0 Hypertensive heart and chronic kidney disease with heart failure and stage 1 through stage 4 chronic kidney disease, or unspecified chronic kidney disease (principal); J96.01 Acute respiratory failure with hypoxia; I50.33 Acute on chronic diastolic (congestive) heart failure; J18.1 Lobar pneumonia, unspecified organism; J44.1 Chronic obstructive pulmonary disease with (acute) exacerbation; N17.9 Acute kidney failure, unspecified; J90 Pleural effusion, not elsewhere classified; I25.10 Atherosclerotic heart disease of native coronary artery without angina pectoris; I48.91 Unspecified atrial fibrillation; K21.9 Gastro-esophageal reflux disease without esophagitis; N18.3 Chronic kidney disease, stage 3 (moderate); D50.9 Iron deficiency anemia, unspecified; N40.0 Benign prostatic hyperplasia without lower urinary tract symptoms; F03.90 Unspecified dementia, unspecified severity, without behavioral disturbance, psychotic disturbance, mood disturbance, and anxiety; D69.6 Thrombocytopenia, unspecified; I08.1 Rheumatic disorders of both mitral and tricuspid valves; Z95.1 Presence of aortocoronary bypass graft; Z95.0 Presence of cardiac pacemaker; E87.6 Hypokalemia